=== PATIENT | female | born 1945 | race Caucasian/White ===

== ENCOUNTER → 2017-11-18 10:49 | Outpatient (CLI) | payer MEDICARE, SELFPAY ==
[2017-11-18 11:55] LABS: Hematocrit 37.3 % (37-47); Hemoglobin 11.9 g/dl (12.0-15.0); Mean Corp Hgb Conc 31.9 g/gl (32-36); Mean Corpuscular Hgb 29.5 pg (27.0-32.0); Mean Corpuscular Volume 92.6 fL (81-99); Mean Platelet Vol. 11.6 fl (6.2-12.0); Platelet Count 227 K/mm3 (150-450); RBC Distribution Width CV 13.3 % (11.6-14.6); RBC Distribution Width SD 43.9 fl (35.1-43.9); Red Blood Count 4.03 M/mm3 (4.2-5.4); White Blood Count 5.6 K/mm3 (4.4-11.0)
[2017-11-18 11:56] LABS: Scan Indicated on CBC? Y/N NO
[2017-11-18 12:15] LABS: BUN 56 mg/dL (7-18); BUN/Creat Ratio 25.7 RATIO (10-20); Calcium,Total 9.4 mg/dL (8.5-10.1); Chloride 102 mmol/L (98-107); Creatinine, Serum 2.18 mg/dL (0.55-1.02); EST Glomerular Filtration Rate 23 mL/min (>60); Est Glom Filt Rate - Afr Amer 28 mL/min (>60); Glucose 87 mg/dL (74-106); Phosphorus 4.1 mg/dL (2.5-4.9); Potassium 4.1 mmol/L (3.5-5.1); Sodium Level 139 mmol/L (136-145)
[2017-11-18 12:27] LABS: PTHIN 64.3 pg/mL (18.4-80.1)
[2017-11-18 13:06] LABS: Protein, Urine (Random) 7.7 mg/dL (<11.9); Protein:Creat Ratio 64 mg/g CRE (0-200)
== END ==
PROVIDERS: Family Provider Family Medicine; PCP Family Medicine
DX: I12.0 Hypertensive chronic kidney disease with stage 5 chronic kidney disease or end stage renal disease (principal); N18.5 Chronic kidney disease, stage 5; N25.81 Secondary hyperparathyroidism of renal origin
CPT/HCPCS: 36415; 80069; 82570; 83970; 84156; 85027

== ENCOUNTER → 2018-04-29 11:03 | Outpatient (CLI) | payer MEDICARE, SELFPAY ==
--- NOTE | 2018-04-29 11:05 | MRI_ITS ---
STUDY: MRI LUMBAR SPINE WITHOUT CONTRAST REASON FOR EXAM: Female, 72 years old. leg weakness, rt sided low back pain; hip, pelvis, groin pain TECHNIQUE: Standardized fat and water weighted pulse sequences were obtained in the sagittal and axial planes. COMPARISON: None FINDINGS: There is an exaggerated lumbar lordosis. There is a mild levoscoliosis of the lower lumbar spine. Normal conus medullaris that terminates at the T12-L1 level. There is grade 1 anterolisthesis at L5-S1, L4-5. There is retrolisthesis at L2-3, L1-2. There is multilevel disc desiccation. There is loss of disc height at L1-2, L4-5, L5-S1. Vertebral body heights are maintained. There is diffuse heterogeneous bone marrow signal consistent with senescent marrow. There are mild Modic type I changes at L5-S1 and L1-2. There is multilevel facet arthropathy and ligamentum flavum hypertrophy. This is severe at L4-5 and L5-S1. T12/L1: Sagittal images only were obtained. There is a small central bulge causing impression on the ventral thecal sac without neuroforaminal stenosis. L1/2: There is a diffuse bulge largest in the right paracentral region. There is mild central canal stenosis without neuroforaminal stenosis. L2/3: There is a diffuse bulge slightly asymmetric to the left. There is impression on the ventral thecal sac and mild left worse than right neuroforaminal stenosis. L3/4: There is a diffuse bulge. There is impression on the ventral thecal sac and rcbi-ob-mfwlxuvz bilateral neuroforaminal stenosis. L4/5: There is anterolisthesis. No bulge or herniation is seen. There is severe central canal stenosis at the level of the upper half of L5 and moderate central canal stenosis at the level of the L4-5 disc. There is severe right and mild left neuroforaminal stenosis. L5/S1: There is anterolisthesis. No disc bulge or herniation is seen. There is impression on the ventral thecal sac and moderate left worse than right neuroforaminal stenosis. Normal visualized sacral ala. There are multiple bilateral renal cysts suggesting polycystic kidney disease. MRI/Spine Lumbar (Routine) IMPRESSION: Multilevel degenerative changes, as described above. There is an exaggerated lumbar lordosis. L1/2: There is a diffuse bulge largest in the right paracentral region. There is mild central canal stenosis. L2/3: There is a diffuse bulge. There is mild left worse than right neuroforaminal stenosis. L3/4: There is a diffuse bulge. There is redj-wv-mcrwzumh bilateral neuroforaminal stenosis. L4/5: There is anterolisthesis. There is severe central canal stenosis at the level of the upper half of L5 and moderate central canal stenosis at the level of the L4-5 disc. There is severe right and mild left neuroforaminal stenosis. L5/S1: There is anterolisthesis. There is moderate left worse than right neuroforaminal stenosis. Electronically Signed: Rubina Skinner MD at 14:25 EDT , Service support ,
== END ==
PROVIDERS: Family Provider Family Medicine; PCP Family Medicine; Visit Provider Family Medicine
DX: M53.9 Dorsopathy, unspecified (principal)
CPT/HCPCS: 72148

== ENCOUNTER → 2018-05-26 10:49 | Outpatient (CLI) | payer MEDICARE, SELFPAY ==
[2018-05-26 11:21] LABS: Hematocrit 36.2 % (37-47); Hemoglobin 11.3 g/dl (12.0-15.0); Mean Corp Hgb Conc 31.2 g/gl (32-36); Mean Corpuscular Hgb 29.3 pg (27.0-32.0); Mean Corpuscular Volume 93.8 fL (81-99); Mean Platelet Vol. 11.2 fl (6.2-12.0); Platelet Count 225 K/mm3 (150-450); RBC Distribution Width CV 12.8 % (11.6-14.6); RBC Distribution Width SD 43.5 fl (35.1-43.9); Red Blood Count 3.86 M/mm3 (4.2-5.4); Scan Indicated on CBC? Y/N NO
[2018-05-26 11:30] LABS: Protein, Urine (Random) 10.1 mg/dL (<11.9); Protein:Creat Ratio 90 mg/g CRE (0-200)
[2018-05-26 11:49] LABS: Albumin, Serum 3.9 g/dL (3.2-5.0); BUN 53 mg/dL (7-18); BUN/Creat Ratio 23.5 RATIO (10-20); Calcium,Total 9.6 mg/dL (8.5-10.1); Chloride 104 mmol/L (98-107); Cholesterol 139 mg/dL (200); Creatinine, Serum 2.26 mg/dL (0.55-1.02); EST Glomerular Filtration Rate 22 mL/min (>60); Est Glom Filt Rate - Afr Amer 27 mL/min (>60); Glucose 89 mg/dL (74-106); High Density Lipoprotein 55 mg/dL; Phosphorus 4.1 mg/dL (2.5-4.9); Potassium 4.7 mmol/L (3.5-5.1); Sodium Level 143 mmol/L (136-145); Triglycerides 134 mg/dL; Very Low Density Lipoprotein 27 mg/dL (5-40)
[2018-05-26 11:52] LABS: PTHIN 63.1 pg/mL (18.4-80.1)
== END ==
PROVIDERS: Family Provider Family Medicine; PCP Family Medicine; Visit Provider Internal Medicine Nephrology
DX: I12.9 Hypertensive chronic kidney disease with stage 1 through stage 4 chronic kidney disease, or unspecified chronic kidney disease (principal); N18.4 Chronic kidney disease, stage 4 (severe); I63.9 Cerebral infarction, unspecified
CPT/HCPCS: 36415; 80061; 80069; 82570; 83970; 84156; 85027

== ENCOUNTER → 2018-06-29 10:25 | Outpatient (CLI) | payer MEDICARE, SELFPAY ==
--- NOTE | 2018-06-29 10:29 | US_ITS ---
STUDY: RENAL ULTRASOUND - COMPLETE REASON FOR EXAM: Female, 73 years old. Stage IV chronic kidney disease. Follow-up renal cysts. TECHNIQUE: Ultrasound evaluation of the kidneys was performed with real-time and static villaseñor-scale imaging. COMPARISON: July 27, 2015. FINDINGS: RIGHT KIDNEY: Normal location of the right kidney, which is normal in size. The right kidney measures 8.5 cm. There is cortical thinning and increased renal cortical echogenicity. The renal cortex measures 0.9 cm. Multiple right renal cysts. These measure between 0.5 and 1.5 cm in diameter. There are multiple echogenic foci with shadowing suggesting renal calculi. There is no right hydronephrosis. DISTAL RIGHT URETER: There is non-visualization of the distal right ureter. There is no demonstrated right ureterovesical junction calculus. There is a visualized right ureteral jet. LEFT KIDNEY: Normal location of the left kidney, which is normal in size. The left kidney measures 8.9 cm. There is increased renal cortical echogenicity and renal cortical thinning. The renal cortex measures 0.7 cm. There are multiple renal cysts each measuring approximately 1 cm in diameter. There are echogenic foci with shadowing within the left kidney suggesting nonobstructing calculi. There is no left hydronephrosis. DISTAL LEFT URETER: There is non-visualization of the distal left ureter. There is no demonstrated left ureterovesical junction calculus. There is a visualized left ureteral jet. BLADDER: The poorly distended urinary bladder has a volume of 26 ml. There is a normal wall thickness of the distended urinary bladder. There is no demonstrated mass within the urinary bladder. There are no demonstrated bladder calculi. US/Kidney and Bladder IMPRESSION: 1. Small bilateral kidneys with thinning and echogenic cortices consistent with medical renal disease. 2. Bilateral simple renal cysts essentially unchanged from prior study. 3. Bilateral nonobstructing renal calculi. Electronically Signed: Mike Mccarty DO at 19:25 EDT Tel [phone], Service support ,
== END ==
PROVIDERS: Family Provider Family Medicine; PCP Family Medicine; Visit Provider Internal Medicine Nephrology
DX: N18.4 Chronic kidney disease, stage 4 (severe) (principal)
CPT/HCPCS: 76770

== ENCOUNTER → 2018-11-03 16:24 | Outpatient (CLI) | payer MEDICARE, SELFPAY ==
[2018-10-13 10:41] VITALS: BMI 27.8
--- NOTE | 2018-11-03 16:27 | RAD_ITS ---
STUDY: X-RAY - RIGHT HIP REASON FOR EXAM: Female, 73 years old. Right hip pain and low back pain TECHNIQUE: 2 views of the hip. COMPARISON: None. FINDINGS: There is diffuse demineralization of the osseous structures. There are degenerative changes of the visualized lumbar spine. Mild degenerative changes of the sacroiliac joints. Normal femoral head, neck, intertrochanteric region and visualized proximal femur. Normal acetabulum. Normal hip joint. Normal visualized superior and inferior pubic rami and ischial tuberosities. RAD/HIP, UNI W/ Pelvis 2-3 Views IMPRESSION: Normal x-ray examination of the hip. Other nonacute findings as outlined above. Electronically Signed: Lorena Chiang MD at 6:46 EST , Service support ,
== END ==
PROVIDERS: Family Provider Family Medicine; PCP Family Medicine; Referring Provider Anesthesiology Pain Medicine; Visit Provider Anesthesiology Pain Medicine
DX: M25.551 Pain in right hip (principal)
CPT/HCPCS: 73502

== ENCOUNTER → 2018-12-15 11:24 | Outpatient (CLI) | payer MEDICARE, SELFPAY ==
[2018-10-13 10:41] VITALS: BMI 27.8
[2018-12-15 12:22] LABS: Protein, Urine (Random) 15.6 mg/dL (<11.9); Protein:Creat Ratio 93 mg/g CRE (0-200)
[2018-12-15 12:24] LABS: Hematocrit 38.1 % (37-47); Mean Corp Hgb Conc 31.5 g/gl (32-36); Mean Corpuscular Hgb 29.9 pg (27.0-32.0); Mean Platelet Vol. 10.8 fl (6.2-12.0); Platelet Count 206 K/mm3 (150-450); RBC Distribution Width CV 12.9 % (11.6-14.6); RBC Distribution Width SD 44.7 fl (35.1-43.9); Red Blood Count 4.01 M/mm3 (4.2-5.4); Scan Indicated on CBC? Y/N NO; White Blood Count 6.7 K/mm3 (4.4-11.0)
[2018-12-15 12:42] LABS: BUN 42 mg/dL (7-18); BUN/Creat Ratio 20.3 RATIO (10-20); Calcium,Total 8.9 mg/dL (8.5-10.1); Chloride 103 mmol/L (98-107); Creatinine, Serum 2.07 mg/dL (0.55-1.02); EST Glomerular Filtration Rate 25 mL/min (>60); Est Glom Filt Rate - Afr Amer 30 mL/min (>60); Glucose 87 mg/dL (74-106); Phosphorus 3.6 mg/dL (2.5-4.9); Sodium Level 137 mmol/L (136-145)
[2018-12-15 12:51] LABS: PTHIN 66.2 pg/mL (18.4-80.1)
== END ==
PROVIDERS: Family Provider Family Medicine; PCP Family Medicine; Referring Provider Internal Medicine Nephrology; Visit Provider Internal Medicine Nephrology
DX: N18.4 Chronic kidney disease, stage 4 (severe) (principal)
CPT/HCPCS: 36415; 80069; 82570; 83970; 84156; 85027

== ENCOUNTER → 2019-04-12 | Outpatient (CLI) | payer MEDICARE, SELFPAY ==
[2019-04-12 13:45] VITALS: BMI 27.8
--- NOTE | 2019-04-12 13:50 | RAD_ITS ---
STUDY: X-RAY - LUMBAR SPINE REASON FOR EXAM: Female, 73 years old. Back pain TECHNIQUE: 4 view(s) of the lumbar spine were obtained. COMPARISON: 02/27/2018 MRI lumbar spine. The plain film x-ray studies are unavailable at this time. FINDINGS: There is an exaggerated lumbar lordosis. There is trace dextroscoliosis. There is a grade 1 near grade 2 anterolisthesis at the level of L4-L5. This is similar to the prior study, MRI. There is slight retrolisthesis at L2-L3 which shows no significant change on the flexion-extension views. There is disc space narrowing at each level. There is minimal spondylosis. There is facet arthropathy. With flexion and extension views provided there is no change in the anterolisthesis at the level of L4-L5. It remains at approximately 1 cm. The soft tissue structures are unremarkable. RAD/L/S Spine Min 4 Views IMPRESSION: Grade 1 spondylolisthesis without evidence of movement on flexion-extension views. Relatively stable lumbar spine from neutral to flexion and extension. Electronically Signed: Anna Chandler MD at 15:41 EDT Tel , Service support ,
== END | disposition home or self-care (01) ==
LOC: HPRAD 13:50
PROVIDERS: Family Provider Family Medicine; PCP Family Medicine; Referring Provider Orthopaedic Surgery; Visit Provider Orthopaedic Surgery
DX: M53.9 Dorsopathy, unspecified (principal)
CPT/HCPCS: 72110

== ENCOUNTER → 2019-04-13 | Outpatient (CLI) | payer MEDICARE, SELFPAY ==
--- NOTE | 2019-04-13 | LES_PTH ---
PATIENT: TANJA ATKINSON LOC: [facility] U#:[id number] AGE/SX: 73/F ROOM: RE04/13/[address]: Dr. Luís Rodriguez DO : 1945 BED: DIS: 04/13/2019 SPEC #: [id number] RECD: 04/13/19 12:39 STATUS: NOEMY RETono #: [id number] KULDIP: 04/13/19 00:[address]: Luís Rodriguez DEPT: SURGICAL PATHOLOGY RECD BY: Lucho Hernandez Tissues: Skin of external ear, NOS Procedures: Surgery Specimen Level IV HEADER OPERATION: Removal lesion right ear PRE-OP DIAGNOSIS: Right ear lesion TISSUE SUBMITTED: Right ear lesion MICROSCOPIC DIAGNOSIS Right ear lesion, biopsy: Acanthosis, hyperkeratosis with extensive ulceration and associated acute inflammation. Negative for malignancy. SJ:demetra 04/14/19 COMMENT Case has been reviewed in consultation with Dr. Knowles who concurs with the above diagnosis. IDC:AM MICROSCOPIC DESCRIPTION Slides are reviewed. GROSS DESCRIPTION Received is one container labeled with the patient's name and not further designated. The specimen consists of a piece of bruner-white skin ellipse measuring 1 x 0.4 x 0.1 cm. There is one bruner lesion on the surface measuring 0.2 x 0.2 cm. The specimen is inked and submitted entirely in one cassette. It will be serially sectioned at the time of embedding. / SJ:demetra 04/13/19 TC:1 CPT: 30067
[2019-04-13 10:41] VITALS: BMI 27.8
== END | disposition home or self-care (01) ==
LOC: BIMLAB 11:42
PROVIDERS: Family Provider Family Medicine; PCP Family Medicine; Visit Provider Family Medicine
DX: L98.9 Disorder of the skin and subcutaneous tissue, unspecified (principal)
CPT/HCPCS: 88305

== ENCOUNTER → 2019-06-10 | Outpatient (CLI) | payer MEDICARE, SELFPAY ==
[2019-04-26 10:15] VITALS: BMI 27.8
--- NOTE | 2019-06-10 13:15 | RAD_ITS ---
STUDY: X-RAY - LUMBAR SPINE REASON FOR EXAM: Female, 74 years old. Postop lower back surgery. TECHNIQUE: 2 view(s) of the lumbar spine were obtained. COMPARISON: 04/12/2019 lumbar spine radiographs. FINDINGS: Interval posterior fusion and laminectomy L4, L5, and S1 with bilateral pedicle screws joined by spinal rods. Hardware intact. No osseous fracture or complication is evident. Alignment similar to prior with mild right scoliosis centered at L2 and 9 mm anterolisthesis of L4 on L5. RAD/Lumbar Spine 2 or 3 Views IMPRESSION: Interval posterior fusion and laminectomy L4, L5, and S1 no evidence of complication. Electronically Signed: Gaudencio Bhatti, at 0:16 EDT Tel , Service support ,
== END | disposition home or self-care (01) ==
LOC: HPRAD 13:14
PROVIDERS: Family Provider Family Medicine; PCP Family Medicine; Referring Provider Physician Assistant; Visit Provider Physician Assistant
DX: M48.062 Spinal stenosis, lumbar region with neurogenic claudication (principal)
CPT/HCPCS: 72100

== ENCOUNTER → 2019-06-28 | Outpatient (CLI) | payer MEDICARE, SELFPAY ==
[2019-06-28 09:12] VITALS: BMI 27.8
--- NOTE | 2019-06-28 09:22 | RAD_ITS ---
STUDY: X-RAY - LUMBAR SPINE REASON FOR EXAM: Female, 74 years old. Low back pain postop TECHNIQUE: 2 view(s) of the lumbar spine were obtained. COMPARISON: Prior study of 06/10/2019 FINDINGS: Normal lumbar lordosis. There is no substantial scoliosis. There is a grade 1 anterolisthesis of L4 relative to L3 and L5. There are posterior spinal fusion changes from L4 to S1 with rods and interpeduncular screws. There are status post laminectomy changes of L4 and L5. There is narrowing of the L1-2 disc space with sclerosis of the adjacent endplates. The soft tissue structures are unremarkable. RAD/Lumbar Spine 2 or 3 Views IMPRESSION: Posterior spinal fusion changes with rods and interpeduncular screws from L4 to S1. There is a grade 1 anterolisthesis of L4 relative to L3 and L5. Status post laminectomy of L4 and L5. Narrowing of the L1-2 disc space with sclerosis of the adjacent endplates. Electronically Signed: Gaudencio Peters MD at 17:02 EDT , Service support ,
== END | disposition home or self-care (01) ==
LOC: HPRAD 09:21
PROVIDERS: Family Provider Family Medicine; PCP Family Medicine; Referring Provider Orthopaedic Surgery; Visit Provider Orthopaedic Surgery
DX: M54.5 Low back pain (principal)
CPT/HCPCS: 72100

== ENCOUNTER → 2019-07-13 | Outpatient (CLI) | payer MEDICARE, SELFPAY ==
[2019-06-28 09:12] VITALS: BMI 27.8
[2019-07-13 11:21] LABS: Hematocrit 36.8 % (37-47); Hemoglobin 11.2 g/dL (12.0-15.0); Mean Corp Hgb Conc 30.4 g/dL (32-36); Mean Corpuscular Hgb 28.9 pg (27.0-32.0); Mean Corpuscular Volume 94.8 fL (81-99); Platelet Count 279 K/mm3 (150-450); RBC Distribution Width CV 12.8 % (11.6-14.6); RBC Distribution Width SD 44.5 fl (35.1-43.9); Red Blood Count 3.88 M/mm3 (4.2-5.4); White Blood Count 7.3 K/mm3 (4.4-11.0)
[2019-07-13 11:45] LABS: Albumin, Serum 4.1 g/dL (3.2-5.0); BUN 46 mg/dL (7-18); Calcium,Total 9.6 mg/dL (8.5-10.1); Chloride 103 mmol/L (98-107); Creatinine, Serum 2.09 mg/dL (0.55-1.02); EST Glomerular Filtration Rate 25 mL/min (>60); Est Glom Filt Rate - Afr Amer 30 mL/min (>60); Glucose 82 mg/dL (74-106); Phosphorus 4.4 mg/dL (2.5-4.9); Sodium Level 140 mmol/L (136-145)
== END | disposition home or self-care (01) ==
PROVIDERS: Family Provider Family Medicine; PCP Family Medicine
DX: I12.9 Hypertensive chronic kidney disease with stage 1 through stage 4 chronic kidney disease, or unspecified chronic kidney disease (principal); N18.4 Chronic kidney disease, stage 4 (severe); N25.81 Secondary hyperparathyroidism of renal origin
CPT/HCPCS: 36415; 80069; 85027

== ENCOUNTER → 2019-08-08 | Outpatient (CLI) | payer MEDICARE, SELFPAY ==
[2019-06-28 09:12] VITALS: BMI 27.8
--- NOTE | 2019-08-08 13:12 | BI_ITS ---
MAMMOGRAPHY - BILATERAL SCREENING REASON FOR EXAM: Female, 74 years old. Routine annual screening examination. PERTINENT HISTORY: Aunt with breast cancer. Remote left excisional breast biopsy. TECHNIQUE: Digital bilateral breast misa (3D mammographic acquisition) in the CC and MLO projections. 2-D mediolateral oblique (MLO) and craniocaudad (CC) views of both breasts were obtained. CAD: Full Field Digital Mammography with Computer Added Detection was performed. COMPARISON: Comparison is made with prior outside examination dated May 27, 2018. FINDINGS: Breast Composition: There are scattered areas of fibroglandular density. There are no dominant masses or suspicious calcifications. Stable secretory calcifications in both breasts. No other significant abnormalities are identified. There has been no significant change since the prior study. BI/SCREEN MAMM (CAD) W/MISA BILAT IMPRESSION: Stable bilateral screening mammogram. Yearly follow-up mammogram recommended. (A) ASSESSMENT CATEGORY: BIRADS Category 2: Benign. A letter regarding these results will be sent to the patient by the facility within 30 days. Approximately 10% of breast cancers are not detected by mammography. A normal mammogram should not delay biopsy of a clinically suspicious abnormality. [id number] Electronically Signed: Ariel Sousa, at 15:36 EST , Service support ,
== END | disposition home or self-care (01) ==
LOC: OPBI 13:11
PROVIDERS: Family Provider Family Medicine; PCP Family Medicine; Referring Provider Family Medicine; Visit Provider Family Medicine
DX: Z12.31 Encounter for screening mammogram for malignant neoplasm of breast (principal)
CPT/HCPCS: 77063; 77067

== ENCOUNTER → 2019-08-16 | Outpatient (CLI) | payer MEDICARE, SELFPAY ==
[2019-06-28 09:12] VITALS: BMI 27.8
--- NOTE | 2019-08-16 11:14 | RAD_ITS ---
STUDY: X-RAY - LUMBAR SPINE REASON FOR EXAM: Female, 74 years old. Low back pain TECHNIQUE: 2 view(s) of the lumbar spine were obtained. COMPARISON: 06/28/2019 FINDINGS: Normal lumbar lordosis. Mild dextroscoliosis. Status post transpedicular fixation from L4 through S1 with 5 mm of anterolisthesis of L4 and L5 with 5 mm of anterolisthesis of L5 on S1 which are unchanged. Normal vertebral bodies and endplates. There is multi-level degenerative disc disease with multi-level disc space narrowing. The soft tissue structures are unremarkable. RAD/Lumbar Spine 2 or 3 Views IMPRESSION: Postsurgical changes, dextroscoliosis, degenerative disc disease as described above. Overall, no change from 06/28/2019. Electronically Signed: Jorje Arellano MD at 9:09 EST Tel , Service support ,
== END | disposition home or self-care (01) ==
LOC: HPRAD 11:14
PROVIDERS: Family Provider Family Medicine; PCP Family Medicine; Referring Provider Orthopaedic Surgery; Visit Provider Orthopaedic Surgery
DX: Z98.1 Arthrodesis status (principal)
CPT/HCPCS: 72100

== ENCOUNTER 2019-09-09 10:00 | Outpatient (RCR) | payer MEDICARE, SELFPAY ==
[2019-08-16 11:56] VITALS: BMI 27.8
--- NOTE | 2019-08-18 12:32 | HP.PTEVAL ---
Patient's Visit Information TANJA ATKINSON is a 74 year old F referred to Physical Therapy by Stephanie Martinez MD with a diagnosis of S/P L4-S1 FUSION. Date of Evaluation: 08/18/19 Physical Therapist: Vinod Olivera, PT, Cert MDT, [facility] - Visit Plan Frequency: 2x /Week Duration: 4 Weeks Plan: s/p LUMBAR FUSION 05/27/19. PT INTERVENTIONS POSTURAL EX'S ,DLS ,LE STRENGTHENING - Subjective Findings: This 74 y/o female presents to physical therapy with s/p lumbar fusion L4-S1 on 05/27/[address] MARTINEZ at [facility]. Patient d/c to home after 3 days. Patient stated did well min pain. Patient seen DR and recommended PT. Patient had lumbar pain with radicular symptoms. Patient had MRI. Patient denies parathesi/tingling-. Coughing/sneezing -. Bowel/bladder -. Patient sleeping good. Patient has limitations with housework and some ADL'S. Patient surgery impaired QOL. SOCIAL: . VOCATION: retired - Objective POSTURE: rounded shoulders head foward. GAIT: reciprocal pattern mild foward posture. NEURO: intact. PALPATION: unremarkable. LUMBAR ROM: flexiion WFL,EXTENSION min/mod loss,side glides mod loss. MMT: QUADS/HAMS 4/5,HIP FLEXION 4/5,4/5 ANKLE - Special Tests L/S Slump test left side: Negative L/S Slump test right side: Negative L/S Left Straight Leg Raise: Negative L/S Right Straight Leg Raise: Negative - Goals Goal 1:: Independant with HEP. Goal Time Frame: 4-6 Weeks Goal 2:: Patient improve posture/body mechanics for ADL'S Goal Time Frame: 4-6 Weeks Goal 3:: Patient to improve lumbar owestry score by 5 points or > to improve function. Goal Time Frame: 4-6 Weeks Goal 4:: Patient to improve ADL'S with min limiation Goal Time Frame: 2-4 Weeks - Rehabilitation Potential Physical Therapy Diagnosis: This patient underwent s/p lumbar fusion 05/27/19 with decrease ADL' ,functional strength and endurance thus benifit from skilled. Rehabilitation Potential: Good - Anticipated Interventions Patient/Client Instruction: Educate patient on: Condition, Plan of Care For the Purpose of:: To decrease pain, To increase ROM, To improve muscle performance and motor function, To improve ability to perform ADL's, To increase tolerance to activity/condition/position, To improve ability of physical actions for home/community/work/leisure, To improve health of tissue, To decrease soft tissue restriction, To increase flexibility/ROM, To improve ability to perform tasks related to life management Therapeutic Exercise to Include: Strength training, Postural training, Flexibilty training, Dynamic Lumbar Stabilization Comment: BLE For the Purpose of:: To decrease pain, To increase ROM, To improve muscle performance and motor function, To improve ability to perform ADL's, To improve performance and independence with ADL's, To improve ability of physical actions for home/community/work/leisure, To improve ability to perform tasks related to life management Thank you for the opportunity to evaluate your patient. For Medicare and Medicare HMO plans, please review the plan of care and approve it. It will need to be FAXED BACK to us at [phone] for Medicare purposes. For Medicare only, by signing this I certify the plan of care. Please let me know if there are questions or concerns regarding this plan of care. Physician Signature: Date:
--- NOTE | 2019-09-09 10:26 | HP.PTDCSUM ---
HP - PT D/C Summary It has been my pleasure to treat TANJA ATKINSON under orders from Stephanie Martinez MD, for the diagnosis of S/P L4-S1 FUSION for a total of 4 visit(s). Discharge Date: 09/09/19 Please see the following information for a summary of their discharge status. - Subjective Subjective: Doing well .. Return to prior level of function and ADLS' - Pain LB Pain Intensity (Out of 10): 0 - Overall Improvement % Improvement: 90 - Objective Objective/Function: POSTURE: mild foward head. PALPATION: unremarkbale. GAIT: reciprocal pattern. NEURO: intact. MMT: quads/hams/hip 4/5 ankle 4/5. LUMBAR ROM: FLEXION WFL,EXTENSION MOD LOSS - Goals Goal 1:: Independant with HEP. Goal Progress: Goal Met Goal 2:: Patient improve posture/body mechanics for ADL'S Goal Progress: Goal Met Goal 3:: Patient to improve lumbar owestry score by 5 points or > to improve function. Goal Progress: Goal Met Goal 4:: Patient to improve ADL'S with min limiation Goal Progress: Goal Met - Plan Plan: D/C TO [facility]P - D/C Information Discharge Comments: [facility] If there are questions or concerns regarding this patient's physical therapy, please feel free to call me at [phone]. Thank you for the referral of this patient. Sincerely, Vinod Olivera, PT, Cert MDT, [facility]
== END 2019-09-09 19:00 | disposition home or self-care (01) ==
LOC: PT 10:00
PROVIDERS: Family Provider Family Medicine; PCP Family Medicine; Referring Provider Orthopaedic Surgery; Visit Provider Orthopaedic Surgery
DX: Z98.890 Other specified postprocedural states (principal)
CPT/HCPCS: 97110; 97162; 97530

== ENCOUNTER → 2019-11-15 09:50 | Outpatient (CLI) | payer MEDICARE, SELFPAY ==
[2019-08-16 11:56] VITALS: BMI 27.8
--- NOTE | 2019-11-15 09:51 | RAD_ITS ---
STUDY: X-RAY - LUMBAR SPINE REASON FOR EXAM: Female, 74 years old. post op TECHNIQUE: 2 view(s) of the lumbar spine were obtained. COMPARISON: 08/16/2019 FINDINGS: Normal lumbar lordosis. There is no substantial scoliosis. There is a normal alignment of the vertebrae. There is multilevel endplate spondylosis of the lumbar vertebrae. There is multi-level degenerative disc disease with multi-level disc space narrowing. There is no demonstrated fracture. Stable post surgical fusion hardware noted at L4-S1. Stable anterolisthesis of L4 on L5. The soft tissue structures are unremarkable. RAD/Lumbar Spine 2 or 3 Views IMPRESSION: Degenerative changes of the spine, as detailed above. Stable postsurgical changes with anterolisthesis Electronically Signed: Andreas Dennis DO at 17:00 EST Tel , Service support ,
== END ==
PROVIDERS: PCP Family Medicine; Referring Provider Orthopaedic Surgery; Visit Provider Orthopaedic Surgery
DX: M54.5 Low back pain (principal)
CPT/HCPCS: 72100

== ENCOUNTER → 2019-11-30 09:48 | Outpatient (CLI) | payer MEDICARE, SELFPAY ==
[2019-11-15 12:30] VITALS: BMI 27.8
--- NOTE | 2019-11-30 09:51 | US_ITS ---
STUDY: RENAL ULTRASOUND - COMPLETE REASON FOR EXAM: Female, 74 years old. CKD TECHNIQUE: Ultrasound evaluation of the kidneys was performed with real-time and static villaseñor-scale imaging. COMPARISON: Prior study of 06/29/2018 FINDINGS: RIGHT KIDNEY: mild renal atrophy. The right kidney measures 8.7 x 3.7 x 3.8 cm. There is poor cortical sinusoidal echogenic differentiation suggestive of medical renal disease.. The renal cortex measures 1.0 cm. There is a septated right renal cyst measuring 1.2 x 1.0 x 1.5 cm. There are no right renal calculi. There is no right hydronephrosis. DISTAL RIGHT URETER: There is non-visualization of the distal right ureter. There is no demonstrated right ureterovesical junction calculus. There is no demonstrated right ureteral jet. LEFT KIDNEY: The left kidney also demonstrates mild atrophy. The left kidney measures 8.7 x 4.3 x 4.5 cm. There is poor corticomedullary echogenic differentiation suggestive of medical renal disease. The renal cortex measures 1.2 cm. There is no left renal mass or cyst. There are no left renal calculi. There is no left hydronephrosis. DISTAL LEFT URETER: There is non-visualization of the distal left ureter. There is no demonstrated left ureterovesical junction calculus. There is no demonstrated left ureteral jet. BLADDER: Urinary bladder was not visualized. US/Kidney and Bladder IMPRESSION: Bilateral renal atrophy. Poor corticosinusoidal echogenic differentiation of the kidneys suggestive of medical renal disease. Small septated cyst of the right kidney. Left bilateral renal vascular calcifications are noted. Electronically Signed: Gaudencio Peters MD at 19:08 EST , Service support ,
== END ==
PROVIDERS: PCP Family Medicine; Referring Provider Internal Medicine Nephrology; Visit Provider Internal Medicine Nephrology
DX: N18.4 Chronic kidney disease, stage 4 (severe) (principal)
CPT/HCPCS: 76770

== ENCOUNTER → 2020-03-07 10:18 | Outpatient (CLI) | payer MEDICARE, SELFPAY ==
[2019-11-15 12:30] VITALS: BMI 27.8
[2020-03-07 10:52] LABS: Hematocrit 34.4 % (37-47); Hemoglobin 10.9 g/dL (12.0-15.0); Mean Corp Hgb Conc 31.7 g/dL (32-36); Mean Corpuscular Hgb 30.5 pg (27.0-32.0); Mean Corpuscular Volume 96.4 fL (81-99); Mean Platelet Vol. 11.3 fl (6.2-12.0); Platelet Count 240 K/mm3 (150-450); RBC Distribution Width CV 12.4 % (11.6-14.6); RBC Distribution Width SD 44.1 fl (35.1-43.9); Red Blood Count 3.57 M/mm3 (4.2-5.4); White Blood Count 6.3 K/mm3 (4.4-11.0)
[2020-03-07 10:57] LABS: Color, Urine Yellow (Yellow); Glucose, Dipstick Normal (Normal); Ketone-Dipstick Negative (Negative); Leukocyte Esterase-Dipstick 100 /ul (Negative); Nitrite-Dipstick Negative (Negative); Occult Blood-Urine Negative /ul (Negative); Protein-Dipstick Negative (Negative); Specific Gravity, Urine 1.015 (1.002-1.030); Urine Bilirubin Dipstick Negative (Negative); Urine Clarity Sl. Cloudy (Clear); Urine Urobilinogen Normal (Normal)
[2020-03-07 11:16] LABS: PTHIN 128.9 pg/mL (18.4-80.1)
[2020-03-07 11:18] LABS: Albumin, Serum 4.1 g/dL (3.2-5.0); BUN 72 mg/dL (7-18); BUN/Creat Ratio 28.8 RATIO (10-20); Calcium,Total 9.2 mg/dL (8.5-10.1); Chloride 104 mmol/L (98-107); EST Glomerular Filtration Rate 20 mL/min (>60); Est Glom Filt Rate - Afr Amer 24 mL/min (>60); Glucose 100 mg/dL (74-106); Phosphorus 3.9 mg/dL (2.5-4.9); Potassium 4.1 mmol/L (3.5-5.1); Sodium Level 137 mmol/L (136-145)
== END ==
PROVIDERS: PCP Family Medicine; Referring Provider Internal Medicine Nephrology; Visit Provider Internal Medicine Nephrology
DX: N18.4 Chronic kidney disease, stage 4 (severe) (principal)
CPT/HCPCS: 36415; 80069; 81002; 83970; 85027

== ENCOUNTER → 2020-03-20 10:47 | Outpatient (CLI) | payer MEDICARE, SELFPAY ==
[2019-11-15 12:30] VITALS: BMI 27.8
[2020-03-20 11:47] LABS: Albumin, Serum 4.2 g/dL (3.2-5.0); BUN 58 mg/dL (7-18); BUN/Creat Ratio 22.1 RATIO (10-20); Calcium,Total 9.6 mg/dL (8.5-10.1); Chloride 102 mmol/L (98-107); Creatinine, Serum 2.62 mg/dL (0.55-1.02); EST Glomerular Filtration Rate 19 mL/min (>60); Est Glom Filt Rate - Afr Amer 23 mL/min (>60); Glucose 99 mg/dL (74-106); Phosphorus 3.5 mg/dL (2.5-4.9); Sodium Level 137 mmol/L (136-145)
== END ==
PROVIDERS: PCP Family Medicine; Referring Provider Internal Medicine Nephrology; Visit Provider Internal Medicine Nephrology
DX: N18.4 Chronic kidney disease, stage 4 (severe) (principal)
CPT/HCPCS: 36415; 80069

== ENCOUNTER → 2020-05-29 10:51 | Outpatient (CLI) | payer MEDICARE, SELFPAY ==
[2020-05-23 13:09] VITALS: BMI 27.8
--- NOTE | 2020-05-29 10:52 | RAD_ITS ---
STUDY: X-RAY - LUMBAR SPINE REASON FOR EXAM: Female, 75 years old. POST OP TECHNIQUE: 2 view(s) of the lumbar spine were obtained. COMPARISON: November 15, 2019 FINDINGS: There is an exaggerated lumbar lordosis. There is grade 1 anterior listhesis at L4-5. There is grade 1 retrolisthesis at L1-2, L2-3, and L3-4 There is mild S-shaped scoliosis. There is generalized demineralization of the vertebral bodies. There is some posterior fusion from L4 to S1 with bilateral pedicle screws and laminectomy . There is disc space narrowing at L1-2 and L3-4. There is no demonstrated fracture. The soft tissue structures are unremarkable. RAD/Lumbar Spine 2 or 3 Views IMPRESSION: Degenerative and postoperative changes. Electronically Signed: Liu Pollard MD at 23:51 EDT , Service support ,
== END ==
PROVIDERS: PCP Family Medicine; Referring Provider Orthopaedic Surgery; Visit Provider Orthopaedic Surgery
DX: M54.5 Low back pain (principal)
CPT/HCPCS: 72100

== ENCOUNTER → 2020-06-20 10:23 | Outpatient (CLI) | payer MEDICARE, SELFPAY ==
[2020-05-23 13:09] VITALS: BMI 27.8
[2020-06-20 11:35] LABS: Hematocrit 37.2 % (37-47); Hemoglobin 11.4 g/dL (12.0-15.0); Mean Corp Hgb Conc 30.6 g/dL (32-36); Mean Corpuscular Hgb 30.1 pg (27.0-32.0); Mean Corpuscular Volume 98.2 fL (81-99); Mean Platelet Vol. 10.8 fl (6.2-12.0); Platelet Count 274 K/mm3 (150-450); RBC Distribution Width CV 11.5 % (11.6-14.6); RBC Distribution Width SD 41.3 fl (35.1-43.9); Red Blood Count 3.79 M/mm3 (4.2-5.4); White Blood Count 6.3 K/mm3 (4.4-11.0)
[2020-06-20 11:47] LABS: PTHIN 117.2 pg/mL (18.4-80.1)
[2020-06-20 11:56] LABS: BUN 50 mg/dL (7-18); BUN/Creat Ratio 23.1 RATIO (10-20); Calcium,Total 9.5 mg/dL (8.5-10.1); Chloride 103 mmol/L (98-107); Cholesterol 155 mg/dL (200); Creatinine, Serum 2.16 mg/dL (0.55-1.02); EST Glomerular Filtration Rate 24 mL/min (>60); Est Glom Filt Rate - Afr Amer 28 mL/min (>60); Ferritin 50 ng/mL (8-252); Glucose 88 mg/dL (74-106); High Density Lipoprotein 45 mg/dL; Iron 53 ug/dL (50-170); Iron Binding Capacity,Total 343 ug/dL (250-450); PERCENT IRON SATURATION 15.5 % (15.0-55.0); Phosphorus 3.5 mg/dL (2.5-4.9); Potassium 3.8 mmol/L (3.5-5.1); Sodium Level 138 mmol/L (136-145); Triglycerides 226 mg/dL; Very Low Density Lipoprotein 45 mg/dL (5-40)
== END ==
PROVIDERS: PCP Family Medicine; Referring Provider Internal Medicine Nephrology; Visit Provider Internal Medicine Nephrology
DX: N18.4 Chronic kidney disease, stage 4 (severe) (principal)
CPT/HCPCS: 36415; 80061; 80069; 82728; 83540; 83550; 83970; 85027

== ENCOUNTER → 2020-07-04 09:27 | Outpatient (CLI) | payer MEDICARE, SELFPAY ==
[2020-05-23 13:09] VITALS: BMI 27.8
--- NOTE | 2020-07-04 09:29 | US_ITS ---
STUDY: RENAL ULTRASOUND - COMPLETE REASON FOR EXAM: Female, 75 years old. RENAL CYST -- CKD 4 TECHNIQUE: Ultrasound evaluation of the kidneys was performed with real-time and static villaseñor-scale imaging. COMPARISON: Comparison is made with prior examination dated 11/30/2019. FINDINGS: RIGHT KIDNEY: with mild renal atrophy. The right kidney measures 8.7 cm x 4.2 cm x 4.1 cm. There is a normal cortex of the right kidney. The renal cortex measures 1.5 cm. Increased echotexture of the renal cortex suggestive of medical renal disease. 2 right renal cysts are seen. The larger measures 1.7 cm x 1 cm x 1.2 cm. There are no right renal calculi. Intrarenal vascular calcification. There is no right hydronephrosis. DISTAL RIGHT URETER: There is non-visualization of the distal right ureter. There is no demonstrated right ureterovesical junction calculus. There is a visualized right ureteral jet. LEFT KIDNEY: with mild renal atrophy. The left kidney measures 8.6 cm x 3.6 cm x 3.7 cm. There is a normal cortex of the left kidney. Increased echotexture of the renal cortex suggestive of medical renal disease. The renal cortex measures 1 cm. There is no left renal mass or cyst. There are no left renal calculi. There is no left hydronephrosis. Intrarenal vascular calcification. DISTAL LEFT URETER: There is non-visualization of the distal left ureter. There is no demonstrated left ureterovesical junction calculus. There is a visualized left ureteral jet. BLADDER: The distended urinary bladder has a volume of 33 ml. There is a normal wall thickness of the distended urinary bladder. There is no demonstrated mass within the urinary bladder. There are no demonstrated bladder calculi. US/Kidney and Bladder IMPRESSION: Mild degree of bilateral renal atrophy with increased echotexture of the renal cortex suggestive of medical renal disease. 2. Small left renal cysts. Electronically Signed: Ariel Sousa, at 14:38 EDT , Service support ,
== END ==
PROVIDERS: PCP Family Medicine; Referring Provider Internal Medicine Nephrology; Visit Provider Internal Medicine Nephrology
DX: N28.1 Cyst of kidney, acquired (principal)
CPT/HCPCS: 76770

== ENCOUNTER → 2020-10-17 14:43 | Outpatient (CLI) | payer MEDICARE, SELFPAY ==
[2020-10-17 13:56] VITALS: BMI 28.0
--- NOTE | 2020-10-17 14:45 | RAD_ITS ---
STUDY: X-RAY - RIGHT ANKLE REASON FOR EXAM: Female, 75 years old. Twisted ankle 1 week ago, pain with walking, swelling and bruising TECHNIQUE: 3 view(s) of the ankle. COMPARISON: None. FINDINGS: Normal visualized distal tibia and fibula. Nondisplaced oblique fracture of the lateral malleolus. Normal tibiotalar articulation and ankle mortise. Normal visualized talus and calcaneus. The visualized subtalar, talonavicular, calcaneocuboid and tarsal articulations are normal. Lateral soft tissue swelling. RAD/Ankle min 3 Views IMPRESSION: Nondisplaced fracture of the lateral malleolus. Lateral soft tissue swelling. Electronically Signed: Ariel Sousa, at 16:04 EST , Service support ,
== END ==
PROVIDERS: PCP Family Medicine; Referring Provider Family Medicine; Visit Provider Family Medicine
DX: S99.911A Unspecified injury of right ankle, initial encounter (principal)
CPT/HCPCS: 73610

== ENCOUNTER → 2021-01-08 10:01 | Outpatient (CLI) | payer MEDICARE, SELFPAY ==
[2021-01-08 11:08] LABS: Hematocrit 36.7 % (37-47); Hemoglobin 11.4 g/dL (12.0-15.0); Mean Corp Hgb Conc 31.1 g/dL (32-36); Mean Corpuscular Hgb 29.7 pg (27.0-32.0); Mean Corpuscular Volume 95.6 fL (81-99); Mean Platelet Vol. 10.9 fl (6.2-12.0); Platelet Count 229 K/mm3 (150-450); RBC Distribution Width CV 12.4 % (11.6-14.6); RBC Distribution Width SD 43.2 fl (35.1-43.9); Red Blood Count 3.84 M/mm3 (4.2-5.4)
[2021-01-08 11:19] LABS: Protein, Urine (Random) 11.2 mg/dL (<11.9); Protein:Creat Ratio 88 mg/g CRE (0-200)
[2021-01-08 11:47] LABS: Albumin, Serum 3.9 g/dL (3.2-5.0); BUN 44 mg/dL (7-18); BUN/Creat Ratio 22.3 RATIO (10-20); Chloride 101 mmol/L (98-107); Creatinine, Serum 1.97 mg/dL (0.55-1.02); EST Glomerular Filtration Rate 26 mL/min (>60); Est Glom Filt Rate - Afr Amer 32 mL/min (>60); Glucose 88 mg/dL (74-106); Potassium 3.8 mmol/L (3.5-5.1); Sodium Level 136 mmol/L (136-145); Thyroid Stim Hormone (TSH) 2.97 uIU/mL (0.358-3.74)
== END ==
PROVIDERS: PCP Family Medicine; Visit Provider Internal Medicine Nephrology
DX: I12.9 Hypertensive chronic kidney disease with stage 1 through stage 4 chronic kidney disease, or unspecified chronic kidney disease (principal); N18.32 Chronic kidney disease, stage 3b
CPT/HCPCS: 36415; 80069; 82570; 83970; 84156; 84443; 85027

== ENCOUNTER → 2021-03-29 17:32 | Outpatient (CLI) | payer MEDICARE, SELFPAY ==
[2021-03-22 13:06] VITALS: BMI 28.9
--- NOTE | 2021-03-29 | CYSPIN_PTH ---
PATIENT: TANJA ATKINSON LOC: [facility] U#:[id number] AGE/SX: 80/F ROOM: RE03/29/[address]: Dr. Nathalie Flores MD : 1945 BED: DIS: SPEC #: [id number] RECD: 04/01/21 08:16 STATUS: NOEMY NIKO #: [id number] KULDIP: 03/29/21 00:[address]: Nathalie Flores DEPT: CYTOLOGY RECD BY: Ishmael Blanc ENTERED: 04/01/21 08:16 SP TYPE: CYSPIN FL OTHR DR: Dr. Luís Rodriguez, Tissues: Urine Procedures: Pap Stain (control) Special Stain Group II Cytospin Fluid HEADER OPERATION: Not noted PRE-OP DIAGNOSIS: Hematuria R21.9 TISSUE SUBMITTED: Urine for cytology DIAGNOSIS CYTOLOGY Urine for cytology (cytospin): Negative for malignant cells. See comment. AM:demetra 04/02/2021 COMMENT The specimen primarily contains squamous epithelial cells. Clinical correlation is suggested. CYTOLOGY STUDY Slides are reviewed. CYTOLOGY GROSS Received is 60 ml of light yellow fluid labeled with the patient's name and and designated per the requisition as urine. Submitted for cytology preparation. / demetra 04/01/2021 TC:5 CPT: 98832
[2021-03-29 17:34] LABS: Cytology, Body Fluid / CSF SEE PATHOLOGY REPORT
== END ==
PROVIDERS: PCP Family Medicine; Referring Provider Urology; Visit Provider Urology
DX: R31.9 Hematuria, unspecified (principal)
CPT/HCPCS: 88108; 88313

== ENCOUNTER → 2021-04-05 14:42 | Outpatient (CLI) | payer MEDICARE, SELFPAY ==
[2021-03-22 13:06] VITALS: BMI 28.9
--- NOTE | 2021-04-05 14:46 | CT_ITS ---
STUDY: CT ABDOMEN AND PELVIS WITHOUT CONTRAST REASON FOR EXAM: Female, 75 years old. FLANK PAIN/HEMATURIA. History of cystocele. RADIATION DOSAGE (If Supplied By Facility): CTDIvol = ( 8.51 ) mGy, DLP = ( 387.13 ) mGycm TECHNIQUE: Transaxial images were obtained from the dome of the diaphragm to the symphysis pubis without oral contrast, and without intravenous contrast. Sagittal and coronal images were reconstructed. Individualized dose optimization techniques were used for this CT. COMPARISON: None. FINDINGS: Mild increased markings in the medial posterior aspect of the right middle lobe suggestive of scarring with focal bronchiectasis. The visualized portions of the heart are within normal limits. There is a 1.8 cm cyst in the upper central portion of the right lobe of the liver. Normal gallbladder and extrahepatic biliary system. Normal spleen. Normal pancreas. Normal bilateral adrenal glands. Small bilateral cortical renal cysts. Normal visualized stomach. Normal small intestine. There are multiple colonic diverticula consistent with diverticulosis. The patient is status post appendectomy. Normal abdominal aorta. Normal inferior vena cava. Normal retroperitoneum. Normal urinary bladder. There is absence of the uterus consistent with a prior hysterectomy. Pessary device is seen in the region of the cervix. There is a left-sided inguinal hernia containing adipose tissue. The patient is status post laminectomy and fusion at the L4-L5 and L5-S1 levels. Grade 2 anterior listhesis of L4 on L5. Disc space narrowing at the L4-L5 and L5-S1 levels as well as at the L1-L2 level. Minimal retrolisthesis of L1 on L2. CT/Abdomen/Pelvis without Cont IMPRESSION: Small bilateral cortical renal cysts. 1.8 cm cyst in the upper central portion of the right lobe of the liver. Scattered sigmoid diverticula. Electronically Signed: Ariel Sousa MD at 15:17 EDT , Service support ,
== END ==
PROVIDERS: PCP Family Medicine; Referring Provider Urology; Visit Provider Urology
DX: R31.9 Hematuria, unspecified (principal); R10.9 Unspecified abdominal pain
CPT/HCPCS: 74176

== ENCOUNTER → 2021-06-26 14:29 | Outpatient (CLI) | payer MEDICARE, SELFPAY ==
[2021-06-26 17:29] LABS: AST(SGOT) 24 U/L (15-37); Alanine Aminotransfer ALT/SGPT 22 U/L (13-56); Albumin, Serum 3.8 g/dL (3.2-5.0); Alkaline Phosphatase 54 U/L (45-117); Anion Gap 5 (5-15); BUN 46 mg/dL (7-18); Calcium,Total 9.4 mg/dL (8.5-10.1); Chloride 102 mmol/L (98-107); Cholesterol 150 mg/dL (200); Creatinine, Serum 1.92 mg/dL (0.55-1.02); EST Glomerular Filtration Rate 27 mL/min (>60); Est Glom Filt Rate - Afr Amer 33 mL/min (>60); Glucose 92 mg/dL (74-106); High Density Lipoprotein 48 mg/dL; Potassium 4.2 mmol/L (3.5-5.1); Protein, Total 7.8 g/dL (6.4-8.2); Sodium Level 134 mmol/L (136-145); Triglycerides 252 mg/dL; Very Low Density Lipoprotein 50 mg/dL (5-40)
== END ==
PROVIDERS: PCP Family Medicine; Referring Provider Family Medicine; Visit Provider Family Medicine
DX: E78.00 Pure hypercholesterolemia, unspecified (principal); I51.9 Heart disease, unspecified
CPT/HCPCS: 36415; 80053; 80061

== ENCOUNTER → 2021-07-10 11:10 | Outpatient (CLI) | payer MEDICARE, SELFPAY ==
[2021-07-10 11:48] LABS: Hematocrit 37.2 % (37-47); Hemoglobin 11.5 g/dL (12.0-15.0); Mean Corp Hgb Conc 30.9 g/dL (32-36); Mean Corpuscular Hgb 29.3 pg (27.0-32.0); Mean Corpuscular Volume 94.9 fL (81-99); Mean Platelet Vol. 11.4 fl (6.2-12.0); Platelet Count 241 K/mm3 (150-450); RBC Distribution Width CV 12.5 % (11.6-14.6); RBC Distribution Width SD 43.2 fl (35.1-43.9); Red Blood Count 3.92 M/mm3 (4.2-5.4); White Blood Count 6.5 K/mm3 (4.4-11.0)
[2021-07-10 12:14] LABS: PTHIN 76.1 pg/mL (18.4-80.1)
[2021-07-10 12:17] LABS: BUN 60 mg/dL (7-18); BUN/Creat Ratio 25.6 RATIO (10-20); Calcium,Total 10.2 mg/dL (8.5-10.1); Chloride 100 mmol/L (98-107); Creatinine, Serum 2.34 mg/dL (0.55-1.02); EST Glomerular Filtration Rate 21 mL/min (>60); Est Glom Filt Rate - Afr Amer 26 mL/min (>60); Ferritin 43 ng/mL (8-252); Glucose 97 mg/dL (74-106); Iron 74 ug/dL (50-170); Iron Binding Capacity,Total 354 ug/dL (250-450); PERCENT IRON SATURATION 20.9 % (15.0-55.0); Phosphorus 4.2 mg/dL (2.5-4.9); Potassium 4.1 mmol/L (3.5-5.1); Sodium Level 137 mmol/L (136-145)
== END ==
PROVIDERS: PCP Family Medicine; Referring Provider Internal Medicine Nephrology; Visit Provider Internal Medicine Nephrology
DX: N18.5 Chronic kidney disease, stage 5 (principal)
CPT/HCPCS: 36415; 80069; 82728; 83540; 83550; 83970; 85027

== ENCOUNTER → 2022-02-03 | Outpatient (CLI) | payer MEDICARE, SELFPAY ==
[2022-02-03 11:03] LABS: Hematocrit 36.7 % (37-47); Hemoglobin 11.4 g/dL (12.0-15.0); Mean Corp Hgb Conc 31.1 g/dL (32-36); Mean Corpuscular Hgb 29.8 pg (27.0-32.0); Mean Corpuscular Volume 95.8 fL (81-99); Mean Platelet Vol. 11.1 fl (6.2-12.0); Platelet Count 286 K/mm3 (150-450); RBC Distribution Width CV 11.9 % (11.6-14.6); RBC Distribution Width SD 41.7 fl (35.1-43.9); Red Blood Count 3.83 M/mm3 (4.2-5.4); White Blood Count 6.9 K/mm3 (4.4-11.0)
[2022-02-03 11:12] LABS: Color, Urine Yellow (Yellow); Glucose, Dipstick Normal (Normal); Ketone-Dipstick Negative (Negative); Leukocyte Esterase-Dipstick 500 /ul (Negative); Nitrite-Dipstick Negative (Negative); Occult Blood-Urine 10 /ul (Negative); Protein-Dipstick Negative (Negative); Urine Bilirubin Dipstick Negative (Negative); Urine Clarity Clear (Clear); Urine Urobilinogen Normal (Normal)
[2022-02-03 11:51] LABS: Albumin, Serum 3.7 g/dL (3.2-5.0); BUN 53 mg/dL (7-18); BUN/Creat Ratio 22.9 RATIO (10-20); Calcium,Total 9.7 mg/dL (8.5-10.1); Chloride 101 mmol/L (98-107); Creatinine, Serum 2.31 mg/dL (0.55-1.02); EST Glomerular Filtration Rate 22 mL/min (>60); Est Glom Filt Rate - Afr Amer 26 mL/min (>60); Glucose 92 mg/dL (74-106); Phosphorus 3.2 mg/dL (2.5-4.9); Potassium 3.5 mmol/L (3.5-5.1); Sodium Level 137 mmol/L (136-145)
== END | disposition home or self-care (01) ==
LOC: LAB 10:35
PROVIDERS: PCP Family Medicine; Referring Provider Internal Medicine Nephrology; Visit Provider Internal Medicine Nephrology
DX: N18.4 Chronic kidney disease, stage 4 (severe) (principal)
CPT/HCPCS: 36415; 80069; 81002; 83970; 85027

== ENCOUNTER → 2022-02-19 | Outpatient (CLI) | payer MEDICARE, SELFPAY ==
--- NOTE | 2022-02-19 13:03 | US_ITS ---
STUDY: RENAL ULTRASOUND - COMPLETE REASON FOR EXAM: Female, 76 years old. N17.9 -- CKD 4 TECHNIQUE: Ultrasound evaluation of the kidneys was performed with real-time and static villaseñor-scale imaging. COMPARISON: Comparison is made with prior study dated 07/04/2020. FINDINGS: RIGHT KIDNEY: Normal location of the right kidney, which is normal in size. The right kidney measures 10 cm x 3.17 x 4.9 cm. There is a normal cortex of the right kidney. The renal cortex measures 1.5 cm. Multiple small cysts are seen. The largest measures 1.3 cm x 1.2 cm x 1.1 cm. Nonobstructive bilateral intrarenal calculi. There is no right hydronephrosis. DISTAL RIGHT URETER: There is non-visualization of the distal right ureter. There is no demonstrated right ureterovesical junction calculus. There is a visualized right ureteral jet. LEFT KIDNEY: Normal location of the left kidney, which is normal in size. The left kidney measures 9.1 cm x 4.2 cm x 4.4 cm. There is diffuse thinning of the renal cortex. The renal cortex measures 8.9 cm. Left renal cysts are seen. The largest measures 1.8 cm x 1 cm x 1.1 cm. There are multiple nonobstructive intrarenal calculi. There is no left hydronephrosis. DISTAL LEFT URETER: There is non-visualization of the distal left ureter. There is no demonstrated left ureterovesical junction calculus. There is a visualized left ureteral jet. BLADDER: The distended urinary bladder has a volume of 140 ml. There is a normal wall thickness of the distended urinary bladder. There is no demonstrated mass within the urinary bladder. There are no demonstrated bladder calculi. US/Kidney and Bladder IMPRESSION: Bilateral renal cysts. Bilateral nonobstructive intrarenal calculi. Electronically Signed: Ariel Sousa MD at 14:50 EDT ,
== END | disposition home or self-care (01) ==
LOC: US 13:02
PROVIDERS: PCP Family Medicine; Referring Provider Internal Medicine Nephrology; Visit Provider Internal Medicine Nephrology
DX: N17.9 Acute kidney failure, unspecified (principal)
CPT/HCPCS: 76770

== ENCOUNTER 2022-03-26 14:09 | Emergency (ER) | payer MEDICARE, SELFPAY ==
[2022-03-26 14:10] VITALS: BP 129/78; PULSE 77; RESP 14; TEMP 36.4; O2SAT 97; BMI 25.6
--- NOTE | 2022-03-26 15:55 | CT_ITS ---
STUDY: CT ABDOMEN AND PELVIS WITHOUT CONTRAST REASON FOR EXAM: Female, 76 years old. abd pain RADIATION DOSAGE (If Supplied By Facility): CTDIvol = ( 7.91 ) mGy, DLP = ( 333.94 ) mGycm TECHNIQUE: Transaxial images were obtained from the dome of the diaphragm to the symphysis pubis without oral contrast, and without intravenous contrast. Sagittal and coronal images were reconstructed. Individualized dose optimization techniques were used for this CT. COMPARISON: 04/05/2021 FINDINGS: Lung bases clear. A stable 1.6 cm cyst in the right lobe of the liver. No definite cholelithiasis. Unremarkable spleen, pancreas, and adrenals. Multiple grossly stable hyperdense/hemorrhagic cyst in the bilateral kidneys. No radiopaque urolithiasis or hydroureteronephrosis on either side. No CT evidence of acute appendicitis. Circumferential wall thickening of the descending and sigmoid colon and rectum with surrounding fat stranding, compatible with acute proctocolitis. Distal colonic diverticula. Bowel loops nonobstructed. No free air or free fluid. No adenopathy. Vascular calcification. No abdominal aortic aneurysm. Sections through the pelvis demonstrate a grossly unremarkable urinary bladder. Status post hysterectomy. Pessary ring in place. Fat-containing left inguinal hernia. Prior L4-L5 laminectomy with L4-S1 posterior pedicle screw fusion. Mild anterior slippage of L4 on L5 and L5 on S1, most likely degenerative. Also, posterior slippage of L1 on L2, degenerative. CT/Abdomen/Pel W ORAL Cont Only IMPRESSION: Acute infectious/inflammatory proctocolitis. Distal colonic diverticulosis. Other chronic findings as above. Electronically Signed: Kameron Velasquez MD at 18:49 EDT ,
--- NOTE | 2022-03-26 15:57 | EDS_ITS ---
HPI History of Present Illness Chief Complaint: Abd Pain Informant: patient Onset/Context/Timing Onset: Days (4 days) Context: Gradual Onset Current Severity: Moderate Maximum Severity: Moderate Narrative Narrative: Patient presents with 4-day history of abdominal pain. She states she has a history of ischemic colon and she will get flares of pain intermittently. Usually goes away rather quickly but this episode has been more persistent. She reports having some chills at home but did not measure her temperature. She has had nausea, vomiting, diarrhea. She denies urinary symptoms. She denies having blood in her stool. [facility] Medical History Anemia Back problem Blood clot in vein Chronic bronchitis Chronic headaches Gastrointestinal problem Glaucoma Gout Heart disease High blood pressure High calcium levels High cholesterol history Cystocele and rectocele Kidney failure Osteoporosis Parathyroid disorder Stroke Vision problems Home Medications calcitriol 0.25 mcg capsule 0.25 mcg PO .tiw 04/22/18 [History Last Taken Unknown] latanoprost 0.005 % eye drops 1 drp ophthalmic (eye) QPM 04/22/18 [History Last Taken Unknown] lisinopril 5 mg tablet 10 mg PO QDAY 04/22/18 [History Last Taken Unknown] acetaminophen 500 mg tablet (Tylenol Extra Strength) 500 mg PO Q4H 04/12/19 [History Last Taken Unknown] polyethylene glycol 3350 17 gram/dose oral powder (Miralax) 17 g PO .QOD 04/13/19 [History Last Taken Unknown] cholecalciferol (vitamin D3) 50 mcg (2,000 unit) capsule 50 mcg PO DAILY 01/17/21 [History Last Taken Unknown] furosemide 40 mg tablet 60 mg PO DAILY 01/17/21 [History Last Taken Unknown] calcium citrate 200 mg (950 mg) tablet 200 mg PO DAILY 04/10/21 [History Last Taken Unknown] rosuvastatin 5 mg tablet (Crestor) 5 mg PO QDAY #90 tabs 10/11/21 [Rx Last Taken Unknown] atenolol 50 mg tablet 25 mg PO BID #180 tabs 10/16/21 [Rx Last Taken Unknown] aspirin 25 mg-dipyridamole 200 mg capsule,ext.release 12 hr multiphase 1 cap PO BID #180 caps 11/28/21 [Rx Last Taken Unknown] febuxostat 40 mg tablet (Uloric) 40 mg PO QDAY #90 tabs 12/12/21 [Rx Last Taken Unknown] ciprofloxacin HCl 500 mg tablet (Cipro) 500 mg PO BID #20 tabs 03/26/22 [Rx Last Taken Unknown] metronidazole 500 mg tablet 500 mg PO BID 10 days #20 tabs 03/26/22 [Rx Last Taken Unknown] Allergy/AdvReac Type Severity Reaction Status Date / Time amlodipine besylate Allergy Swelling Verified 03/26/22 14:12 [From Norvasc] clindamycin Allergy Rash Verified 03/26/22 14:12 codeine AdvReac Vomiting Verified 03/26/22 14:12 meperidine HCl [From Demerol] AdvReac Vomiting Verified 03/26/22 14:12 Family History Father Angina pectoris CVA (cerebral vascular accident) Heart disease Brother Angina pectoris Kidney disease Heart disease Sister Angina pectoris Heart disease Mother Blood clot in vein Bowel disease Colon cancer Uterine cancer Surgical History History of appendectomy History of hysterectomy History of knee surgery History of spinal surgery History of tubal ligation History of vein stripping Social History Smoking Status: Never smoker alcohol intake: never substance use type: does not use what type of physical activity do you participate in: walking ROS ROS ED Constitutional Constitutional ED: Reports chills and sweats; Denies fever(s) Eyes Eyes: Denies change in vision or discharge from eye(s) ENT ENT ED: Denies discharge from eye(s), rhinorrhea or sore throat Cardiovascular Cardiovascular: Denies chest pain or palpitations Respiratory/Chest Respiratory/Chest: Denies cough or dyspnea Gastrointestinal Gastrointestinal: Reports abdominal pain, diarrhea, nausea and vomiting Genitourinary Genitourinary ED: Denies difficulty urinating or dysuria Musculoskeletal Musculoskeletal: Denies back pain or extremity pain Integumentary Denies Abrasions or rash Neurologic Neurologic: Reports weakness; Denies headache(s) Psychiatric Psychiatric: Denies anxiety or depression Allergic/Immunologic Allergic/Immunologic ED: Denies lip swelling or urticaria EXAM Physical Exam Const Vital Signs: 03/26/22 14:10 03/26/22 17:55 Temperature 97.6 F L Temperature Source Temporal Pulse Rate 77 70 Respiratory Rate 14 18 Blood Pressure 129/78 H 141/76 H Blood Pressure Mean 95 97 Pulse Ox 97 95 Oxygen Delivery Method Room Air Room Air Positive well nourished and well developed General Appearance ED: well developed HEENT Reports normocephalic and head/scalp atraumatic Eyes PERRL and EOMs intact bilaterally Neck supple Chest Wall inspection of chest normal and palpation of chest normal Resp normal respiratory effort and clear to auscultation bilaterally Cardio regular rate and regular rhythm GI GI Narrative: Left lower quadrant tenderness to palpation. No guarding or rebound. Normal bowel sounds noted. Palpation: soft Extremity normal to inspection Neuro oriented x3 and no sensory deficits noted Sensorium / Orientation: alert Motor Exam: strength 5/5 throughout Psych mental status grossly normal Skin no rashes or lesions noted MDM MDM MDM Narrative Medical decision making narrative: Patient declined anything for pain or nausea. Lab work obtained, urinalysis, CT abdomen and pelvis. Lab Data Attestation: I reviewed the patient's lab results. Labs: Laboratory Results - last 24 hr 03/26/22 03/26/22 03/26/22 16:05 16:15 16:15 WBC 12.6 H RBC 3.96 L Hgb 11.8 L Hct 37.3 MCV 94.2 MCH 29.8 MCHC 31.6 L RDW Std Deviation 44.2 H RDW Coeff of Ld 12.8 Plt Count 251 MPV 11.1 Immature Gran % (Auto) 0.400 Neut % (Auto) 77.0 H Lymph % (Auto) 10.0 L [place] % (Auto) 11.0 H Eos % (Auto) 1.4 Baso % (Auto) 0.2 Absolute Neuts (auto) 9.7 H Absolute Lymphs (auto) 1.26 Nucleated RBC % 0 Sodium 133 L Potassium 3.5 Chloride 100 Carbon Dioxide 24.0 Anion Gap 9 BUN 48 H Creatinine 2.77 H Estim Creat Clear Calc 13.24 Est GFR (MDRD) Af Amer 21 L Est GFR (MDRD) Non-Af 18 L BUN/Creatinine Ratio 17.3 Glucose 102 Lactic Acid Calcium 10.0 Total Bilirubin 0.40 Direct Bilirubin 0.10 AST 24 ALT 19 Alkaline Phosphatase 67 Total Protein 8.5 H Albumin 4.0 Globulin 4.5 H Urine Color Yellow Urine Clarity Clear Urine pH 5.0 Ur Specific [place] 1.015 Urine Protein 15 H Urine Glucose (UA) Normal Urine Ketones Negative Urine Occult Blood 10 H Urine Nitrite Negative Urine Bilirubin Negative Urine Urobilinogen Normal Ur Leukocyte Esterase 500 H Urine RBC 0-5 SEEN Urine WBC 5-10 SEEN Ur Squamous Epith Cells 0-5 SEEN Urine Bacteria 1+ Urine Mucus 0 SEEN 03/26/22 16:15 WBC RBC Hgb Hct MCV MCH MCHC RDW Std Deviation RDW Coeff of Ld Plt Count MPV Immature Gran % (Auto) Neut % (Auto) Lymph % (Auto) [place] % (Auto) Eos % (Auto) Baso % (Auto) Absolute Neuts (auto) Absolute Lymphs (auto) Nucleated RBC % Sodium Potassium Chloride Carbon Dioxide Anion Gap BUN Creatinine Estim Creat Clear Calc Est GFR (MDRD) Af Amer Est GFR (MDRD) Non-Af BUN/Creatinine Ratio Glucose Lactic Acid 0.9 Calcium Total Bilirubin Direct Bilirubin AST ALT Alkaline Phosphatase Total Protein Albumin Globulin Urine Color Urine Clarity Urine pH Ur Specific [place] Urine Protein Urine Glucose (UA) Urine Ketones Urine Occult Blood Urine Nitrite Urine Bilirubin Urine Urobilinogen Ur Leukocyte Esterase Urine RBC Urine WBC Ur Squamous Epith Cells Urine Bacteria Urine Mucus Radiography Diagnostic Testing: Clinical Impression(s) from Imaging Studies Abdomen CT 03/26/22 15:55 IMPRESSION: Acute infectious/inflammatory proctocolitis. Distal colonic diverticulosis. Other chronic findings as above. Electronically Signed: Kameron Velasquez MD at 18:49 EDT Reading Location ID and State: [facility] / [place] Tel , Service support , Treatment and Re-Evaluation Narrative: Lab work remarkable for slightly elevated white count at 12.6 with 77% neutrophils. Chemistry studies reveal a BUN of 48 and creatinine of 2.77. This is only slightly elevated above her baseline. Urinalysis does show 500 leukocyte esterase with 5-10 white cells and 1+ bacteria. Lactic acid is normal. CT scan was performed with p.o. contrast only. There is evidence of acute infectious or inflammatory proctocolitis. There is evidence of diverticulosis. Patient will be covered with Cipro and Flagyl. I did recommend follow-up with GI as she has been having recurrent bowel issues which she believes to be ischemic colon. Return instructions are provided. Discharge Plan Triage Chief Complaint: Abd Pain ED Provider: Zuleika Beal Dx/Rx/DC Orders Clinical Impression: Colitis, UTI (urinary tract infection) Instructions: ED Gastroenteritis, Bacterial (Adult), ED CYSTITIS Female Adult Prescriptions: New metronidazole 500 mg tablet 500 mg PO BID 10 Days Qty: 20 0RF ciprofloxacin HCl [Cipro] 500 mg tablet 500 mg PO BID Qty: 20 0RF No Action calcitriol 0.25 mcg capsule 0.25 mcg PO .tiw lisinopril 5 mg tablet 10 mg PO QDAY latanoprost 0.005 % drops 1 drp OPHTHALMIC QPM polyethylene glycol 3350 [Miralax] 17 gram/dose powder 17 g PO .QOD acetaminophen [Tylenol Extra Strength] 500 mg tablet 500 mg PO Q4H furosemide 40 mg tablet 60 mg PO DAILY cholecalciferol (vitamin D3) 50 mcg (2,000 unit) capsule 50 mcg PO DAILY calcium citrate 200 mg (950 mg) tablet 200 mg PO DAILY rosuvastatin [Crestor] 5 mg tablet 5 mg PO QDAY Qty: 90 2RF atenolol 50 mg tablet 25 mg PO BID Qty: 180 2RF aspirin-dipyridamole 25-200 mg capsule, ER multiphase 12 hr 1 cap PO BID Qty: 180 1RF Uloric 40 mg tablet 40 mg PO QDAY Qty: 90 1RF Primary Care Provider: Luís Rodriguez Referrals: Luís Rodriguez DO [Primary Care Provider] - 1-2 Weeks Robb Leyva DO [STAFF PHYSICIAN] - As Needed Disposition Disposition: Home, Self Care
[2022-03-26 16:23] LABS: Mucous, Urine 0 SEEN /hpf (<or=2+)
[2022-03-26 16:27] LABS: Color, Urine Yellow (Yellow); Glucose, Dipstick Normal (Normal); Ketone-Dipstick Negative (Negative); Leukocyte Esterase-Dipstick 500 /ul (Negative); Nitrite-Dipstick Negative (Negative); Occult Blood-Urine 10 /ul (Negative); Protein-Dipstick 15 mg/dl (Negative); Specific Gravity, Urine 1.015 (1.002-1.030); Urine Bilirubin Dipstick Negative (Negative); Urine Clarity Clear (Clear); Urine Urobilinogen Normal (Normal)
[2022-03-26] MEDS: 0.9% Normal Saline 1,000 ML 150 ML IV (16:27)
[2022-03-26 16:33] LABS: Absolute Lymphocyte Count 1.26 X10^3/uL (0.83-4.51); Absolute Neutrophil Count 9.7 X10^3/uL (2.0-7.7); Basophil# 0.03 X10^3/uL; Basophil% 0.2 % (0-1); Eosinophil# 0.18 X10^3/uL; Eosinophils% 1.4 % (0-5); Hematocrit 37.3 % (37-47); Hemoglobin 11.8 g/dL (12.0-15.0); Lymphocyte # 1.26 X10^3/ul (0.83-4.51); Mean Corp Hgb Conc 31.6 g/dL (32-36); Mean Corpuscular Hgb 29.8 pg (27.0-32.0); Mean Corpuscular Volume 94.2 fL (81-99); Mean Platelet Vol. 11.1 fl (6.2-12.0); Monocyte# 1.38 X10^3/uL; NRBC Flagged by Analyzer 0 % (0-5); Neutrophil # 9.67 X10^3/uL (2.7-7.7); Platelet Count 251 K/mm3 (150-450); RBC Distribution Width CV 12.8 % (11.6-14.6); RBC Distribution Width SD 44.2 fl (35.1-43.9); Red Blood Count 3.96 M/mm3 (4.2-5.4); White Blood Count 12.6 K/mm3 (4.4-11.0)
[2022-03-26 16:44] LABS: Red Blood Cells-Urine 0-5 SEEN /hpf (0-5); White Blood Cells 5-10 SEEN /hpf (0-5)
[2022-03-26 16:45] LABS: Bacteria 1+ /hpf (None Seen); Squamous Epithelial Cells - UA 0-5 SEEN /hpf (5-10)
[2022-03-26 16:48] LABS: Lactic Acid 0.9 mmol/L (0.4-1.9)
[2022-03-26 17:19] LABS: AST(SGOT) 24 U/L (15-37); Alanine Aminotransfer ALT/SGPT 19 U/L (13-56); Alkaline Phosphatase 67 U/L (45-117); Anion Gap 9 (5-15); BUN 48 mg/dL (7-18); BUN/Creat Ratio 17.3 RATIO (10-20); Chloride 100 mmol/L (98-107); Creatinine, Serum 2.77 mg/dL (0.55-1.02); EST Glomerular Filtration Rate 18 mL/min (>60); Est Glom Filt Rate - Afr Amer 21 mL/min (>60); Estimated Creatinine Clearance 13.24 ml/min; Globulin 4.5 g/dL (2.2-4.2); Glucose 102 mg/dL (74-106); Potassium 3.5 mmol/L (3.5-5.1); Protein, Total 8.5 g/dL (6.4-8.2); Sodium Level 133 mmol/L (136-145)
[2022-03-26 17:55] VITALS: BP 141/76; PULSE 70; RESP 18; O2SAT 95
[2022-03-26] MEDS: metroNIDAZOLE 500 MG Tablet PO (20:26)
[2022-03-26] MEDS: Ciprofloxacin 500 MG Tablet PO (20:26)
[2022-03-26 21:01] VITALS: BP 136/64; PULSE 75; RESP 16; O2SAT 98
== END 2022-03-26 21:02 | disposition home or self-care (01) ==
PROVIDERS: Emergency Provider Emergency Medicine; PCP Family Medicine; Visit Provider Emergency Medicine
DX: K52.9 Noninfective gastroenteritis and colitis, unspecified (principal); N39.0 Urinary tract infection, site not specified; E78.00 Pure hypercholesterolemia, unspecified; I10 Essential (primary) hypertension; Z79.82 Long term (current) use of aspirin; Z79.899 Other long term (current) drug therapy; Z86.73 Personal history of transient ischemic attack (TIA), and cerebral infarction without residual deficits
CPT/HCPCS: 74176; 80048; 80076; 81001; 83605; 85025; 99283; J7030; A4216

== ENCOUNTER → 2022-04-15 | Outpatient (CLI) | payer MEDICARE, SELFPAY ==
[2022-04-15 13:33] LABS: Absolute Lymphocyte Count 0.66 X10^3/uL (0.83-4.51); Absolute Neutrophil Count 8.2 X10^3/uL (2.0-7.7); Basophil# 0.02 X10^3/uL; Basophil% 0.2 % (0-1); Eosinophil# 0.01 X10^3/uL; Eosinophils% 0.1 % (0-5); Lymphocyte # 0.66 X10^3/ul (0.83-4.51); Lymphocyte % 6.8 % (19-41); Mean Corp Hgb Conc 31.4 g/dL (32-36); Mean Corpuscular Hgb 29.7 pg (27.0-32.0); Mean Corpuscular Volume 94.6 fL (81-99); Mean Platelet Vol. 11.7 fl (6.2-12.0); Monocyte# 0.86 X10^3/uL; Monocyte% 8.8 % (0-10); NRBC Flagged by Analyzer 0 % (0-5); Neutrophil % 83.9 % (47-70); POSITIVE MORPHOLOGY YES; Platelet Count 249 K/mm3 (150-450); RBC Distribution Width CV 13.7 % (11.6-14.6); RBC Distribution Width SD 47.3 fl (35.1-43.9); White Blood Count 9.8 K/mm3 (4.4-11.0)
[2022-04-15 13:40] LABS: Differential Indicated SCAN CRITERIA MET
[2022-04-15 13:41] LABS: Erythrocyte Sedimentation Rate 19 mm/hr (0-30)
[2022-04-15 14:00] LABS: Differential Comment SCANNED
[2022-04-16 17:07] LABS: Endomysial Antibody IgA Negative (Negative)
[2022-04-16 19:33] LABS: Immunoglobulin A 148 mg/dL (64-422); t-Transglutaminase IgA <2 U/mL (0-3)
[2022-04-22 14:20] LABS: Calprotectin, Stool 1376 ug/g (0-120)
== END | disposition home or self-care (01) ==
PROVIDERS: PCP Family Medicine; Referring Provider Internal Medicine Gastroenterology; Visit Provider Internal Medicine Gastroenterology
DX: R19.7 Diarrhea, unspecified (principal); K52.9 Noninfective gastroenteritis and colitis, unspecified; K58.9 Irritable bowel syndrome, unspecified
CPT/HCPCS: 36415; 82653; 82784; 83516; 83630; 83993; 85025; 85652; 86140; 86255; 87177; 87209; 87493; 87506

== ENCOUNTER → 2022-04-25 | Outpatient (CLI) | payer MEDICARE, SELFPAY ==
[2022-05-01 12:51] LABS: Pancreatic Elastase, Fecal 325 (>200)
== END | disposition home or self-care (01) ==
PROVIDERS: PCP Family Medicine; Referring Provider Internal Medicine Gastroenterology; Visit Provider Internal Medicine Gastroenterology
DX: K52.9 Noninfective gastroenteritis and colitis, unspecified (principal)
CPT/HCPCS: 82653

== ENCOUNTER → 2022-05-14 | Outpatient (CLI) | payer MEDICARE, SELFPAY | END | disposition home or self-care (01) | LOC: LAB 09:51 → LABSPEC 09:53 | PROVIDERS: PCP Family Medicine; Referring Provider Internal Medicine Gastroenterology; Visit Provider Internal Medicine Gastroenterology | DX: Z86.19 Personal history of other infectious and parasitic diseases (principal) | CPT/HCPCS: 87493 ==

== ENCOUNTER 2022-05-24 10:01 | Outpatient (CLI) | payer MEDICARE, SELFPAY ==
--- NOTE | 2022-05-22 11:14 | NURSING ---
Patient came for outpatient infusion. It was determined that her medication was not ordered and could not be obtained today. Recovery performed with patient and her . Educational materials on medication provided. Sent all orders to infusion center pharmacy to be ordered.
[2022-05-24 10:27] VITALS: BP 135/80; PULSE 57; RESP 18; TEMP 36.4; O2SAT 99
== END 2022-05-24 12:00 | disposition home or self-care (01) ==
LOC: MEDOUTP 10:08 → MS3 10:10
PROVIDERS: PCP Family Medicine; Referring Provider Internal Medicine Gastroenterology; Visit Provider Internal Medicine Gastroenterology
DX: A49.8 Other bacterial infections of unspecified site (principal)

== ENCOUNTER → 2022-05-24 | Outpatient (CLI) | payer MEDICARE, SELFPAY ==
[2022-05-24 10:35] VITALS: BP 135/80; PULSE 57; RESP 18; TEMP 36.4; O2SAT 99
== END | disposition home or self-care (01) ==
LOC: MEDOUTP 06-16 09:34
PROVIDERS: PCP Family Medicine; Referring Provider Internal Medicine Gastroenterology; Visit Provider Internal Medicine Gastroenterology
DX: A49.8 Other bacterial infections of unspecified site (principal)
CPT/HCPCS: 96365; 96366; J0565

== ENCOUNTER → 2022-08-20 | Outpatient (CLI) | payer MEDICARE, SELFPAY ==
[2022-08-20 15:12] LABS: Absolute Lymphocyte Count 2.31 X10^3/uL (0.83-4.51); Basophil# 0.06 X10^3/uL; Basophil% 0.7 % (0-1); Eosinophil# 0.28 X10^3/uL; Eosinophils% 3.2 % (0-5); Hematocrit 33.6 % (37-47); Hemoglobin 10.3 g/dL (12.0-15.0); Lymphocyte # 2.31 X10^3/ul (0.83-4.51); Lymphocyte % 26.3 % (19-41); Mean Corp Hgb Conc 30.7 g/dL (32-36); Mean Corpuscular Hgb 30.4 pg (27.0-32.0); Mean Corpuscular Volume 99.1 fL (81-99); Mean Platelet Vol. 10.7 fl (6.2-12.0); Monocyte% 12.5 % (0-10); NRBC Flagged by Analyzer 0 % (0-5); Neutrophil # 5.03 X10^3/uL (2.7-7.7); Neutrophil % 57.1 % (47-70); Platelet Count 274 K/mm3 (150-450); RBC Distribution Width CV 12.5 % (11.6-14.6); RBC Distribution Width SD 45.3 fl (35.1-43.9); Red Blood Count 3.39 M/mm3 (4.2-5.4); White Blood Count 8.8 K/mm3 (4.4-11.0)
[2022-08-20 15:43] LABS: AST(SGOT) 21 U/L (15-37); Alanine Aminotransfer ALT/SGPT 20 U/L (13-56); Alkaline Phosphatase 64 U/L (45-117); Anion Gap 8 (5-15); BUN 43 mg/dL (7-18); BUN/Creat Ratio 19.2 RATIO (10-20); Calcium,Total 9.7 mg/dL (8.5-10.1); Chloride 103 mmol/L (98-107); Cholesterol 152 mg/dL (200); Creatinine, Serum 2.24 mg/dL (0.55-1.02); EST Glomerular Filtration Rate 22 mL/min (>60); Est Glom Filt Rate - Afr Amer 27 mL/min (>60); Glucose 91 mg/dL (74-106); High Density Lipoprotein 37 mg/dL; Potassium 3.8 mmol/L (3.5-5.1); Sodium Level 140 mmol/L (136-145); Triglycerides 332 mg/dL; Very Low Density Lipoprotein 66 mg/dL (5-40)
== END | disposition home or self-care (01) ==
LOC: LAB 14:47
PROVIDERS: PCP Family Medicine; Visit Provider Family Medicine
DX: D64.9 Anemia, unspecified (principal); I10 Essential (primary) hypertension
CPT/HCPCS: 36415; 80053; 80061; 85025

== ENCOUNTER → 2022-09-03 | Outpatient (CLI) | payer MEDICARE, SELFPAY ==
--- NOTE | 2022-09-03 14:00 | LES_PTH ---
PATIENT: TANJA ATKINSON LOC: [facility] U#:[id number] AGE/SX: 77/F ROOM: RE09/03/[address]: Dr. Luís Rodriguez DO : 1945 BED: DIS: 09/03/2022 SPEC #: [id number] RECD: 09/03/22 16:28 STATUS: NOEMY NIKO #: [id number] KULDIP: 09/03/22 14:[address]: Luís Rodriguez DEPT: SURGICAL PATHOLOGY RECD BY: Veronique Kiran Tissues: Skin of hand and finger, NOS Procedures: Surgery Specimen Level IV HEADER OPERATION: Removal of left hand lesion PRE-OP DIAGNOSIS: Cutaneous horn TISSUE SUBMITTED: Left hand lesion MICROSCOPIC DIAGNOSIS Skin lesion of left hand, biopsy: Fragments of squamous cell carcinoma. See comment. AM:demetra 09/05/2022 COMMENT The lesion extends to the deep margins of excision. Complete excision of lesion is recommended for definitive classification. MICROSCOPIC DESCRIPTION Slides are reviewed. GROSS DESCRIPTION Received is one container labeled with the patient's name and not further designated. The specimen consists of an irregular fragment of light bruner excised skin measuring 0.8 x 0.5 x 0.5 cm. The specimen is inked, bisected and totally submitted in one cassette. / AM:demetra 09/04/2022 TC:0 [facility]: [id number]
--- NOTE | 2022-09-03 14:09 | RAD_ITS ---
STUDY: X-RAY CHEST REASON FOR EXAM: Female, 77 years old. Fever and cough TECHNIQUE: PA and lateral views of the chest. COMPARISON: 2016 FINDINGS: Lungs are mildly hyperexpanded without a superimposed acute pulmonary process. There is no demonstrated pleural abnormality. Normal size heart. Normal mediastinum and steph. Normal visualized pulmonary arteries. Normal visualized aortic arch and descending thoracic aorta. There are diffuse degenerative changes of the visualized thoracic spine. Normal visualized ribs, clavicles, and shoulders. There is no demonstrated abnormality of the visualized soft tissue structures of the upper abdomen. RAD/Chest PA and Lateral IMPRESSION: Mildly hyperexpanded lungs without a superimposed acute pulmonary process Electronically Signed: Rio Holguin MD at 14:48 EST ,
== END | disposition home or self-care (01) ==
PROVIDERS: PCP Family Medicine; Referring Provider Family Medicine; Visit Provider Family Medicine
DX: R05.9 Cough, unspecified (principal)
CPT/HCPCS: 71046; 88305

== ENCOUNTER → 2022-10-01 | Outpatient (CLI) | payer MEDICARE, SELFPAY ==
--- NOTE | 2022-10-01 16:20 | LES_PTH ---
PATIENT: TANJA ATKINSON LOC: [facility] U#:[id number] AGE/SX: 77/F ROOM: RE10/01/[address]: Dr. Luís Rodriguez DO : 1945 BED: DIS: 10/01/2022 SPEC #: [id number] RECD: 10/02/22 12:17 STATUS: NOEMY NIKO #: [id number] KULDIP: 10/01/22 16:[address]: Luís Rodriguez DEPT: SURGICAL PATHOLOGY RECD BY: Shaniqua Billings Tissues: TISSUE SURGICALLY REMOVED Procedures: Surgery Specimen Level IV HEADER OPERATION: Shave excision PRE-OP DIAGNOSIS: Squamous cell carcinoma TISSUE SUBMITTED: Shave excision MICROSCOPIC DIAGNOSIS Skin lesion, shave biopsy: Atypical squamous epithelial lesion. Solar elastosis. SJ:demetra 10/03/2022 COMMENT Complete excision of the lesion is suggested, if clinically indicated. Please make reference to previous specimen ([id number]) skin lesion of left hand, biopsy with diagnosis of ?fragments of squamous cell carcinoma.? Clinical correlation and appropriate follow up are necessary. Case has been reviewed in consultation with Dr. Knowles who concurs with the above diagnosis. IDC:AM MICROSCOPIC DESCRIPTION Slides are reviewed. GROSS DESCRIPTION Received is one container labeled with the patient's name and not further designated. The specimen consists of a shave biopsy of bruner-white skin measuring 0.7 x 0.3 x 0.1 cm. The specimen is inked, sectioned and submitted entirely in one cassette. / SJ:rg 10/02/2022 TC:5 CPT: 63635
== END | disposition home or self-care (01) ==
LOC: LABSPEC 10-02 14:02
PROVIDERS: PCP Family Medicine; Referring Provider Family Medicine; Visit Provider Family Medicine
DX: C44.92 Squamous cell carcinoma of skin, unspecified (principal)
CPT/HCPCS: 88305

== ENCOUNTER → 2022-10-07 | Outpatient (CLI) | payer MEDICARE, SELFPAY ==
[2022-10-07 11:29] LABS: Erythrocyte Sedimentation Rate 36 mm/hr (0-30)
[2022-10-07 11:30] LABS: Absolute Lymphocyte Count 1.55 X10^3/uL (0.83-4.51); Absolute Neutrophil Count 3.9 X10^3/uL (2.0-7.7); Basophil# 0.04 X10^3/uL; Basophil% 0.6 % (0-1); Eosinophil# 0.27 X10^3/uL; Eosinophils% 4.1 % (0-5); Hematocrit 34.5 % (37-47); Hemoglobin 11.1 g/dL (12.0-15.0); Lymphocyte # 1.55 X10^3/ul (0.83-4.51); Lymphocyte % 23.8 % (19-41); Mean Corp Hgb Conc 32.2 g/dL (32-36); Mean Corpuscular Hgb 30.3 pg (27.0-32.0); Mean Corpuscular Volume 94.3 fL (81-99); Mean Platelet Vol. 10.9 fl (6.2-12.0); Monocyte# 0.78 X10^3/uL; NRBC Flagged by Analyzer 0 % (0-5); Neutrophil # 3.85 X10^3/uL (2.7-7.7); Platelet Count 235 K/mm3 (150-450); RBC Distribution Width CV 11.9 % (11.6-14.6); RBC Distribution Width SD 41.2 fl (35.1-43.9); Red Blood Count 3.66 M/mm3 (4.2-5.4); White Blood Count 6.5 K/mm3 (4.4-11.0)
[2022-10-07 11:52] LABS: AST(SGOT) 20 U/L (15-37); Alanine Aminotransfer ALT/SGPT 17 U/L (13-56); Albumin, Serum 3.9 g/dL (3.2-5.0); Alkaline Phosphatase 59 U/L (45-117); Anion Gap 7 (5-15); BUN 57 mg/dL (7-18); CRP 3.97 mg/L (0.0-3.0); Calcium,Total 10.2 mg/dL (8.5-10.1); Chloride 103 mmol/L (98-107); Creatinine, Serum 2.48 mg/dL (0.55-1.02); EST Glomerular Filtration Rate 20 mL/min (>60); Est Glom Filt Rate - Afr Amer 24 mL/min (>60); Globulin 4.1 g/dL (2.2-4.2); Glucose 93 mg/dL (74-106); LDH 201 U/L (84-246); Sodium Level 137 mmol/L (136-145)
[2022-10-08 12:08] LABS: Anti-Centromere B Ab <0.2 AI (0.0-0.9); Anti-Chromatin <0.2 AI (0.0-0.9); Anti-Jo <0.2 AI (0.0-0.9); Anti-Scleroderma-70 AB <0.2 AI (0.0-0.9); RNP Ab <0.2 AI (0.0-0.9); SJOGREN'S Anti-SS-A test < 0.2 AI (0.0-0.9); SJOGREN'S Anti-SS-B test < 0.2 AI (0.0-0.9); Smith Ab <0.2 AI (0.0-0.9)
[2022-10-08 15:08] LABS: Endomysial Antibody IgA Negative (Negative)
[2022-10-08 19:22] LABS: Immunoglobulin A 141 mg/dL (64-422); t-Transglutaminase IgA <2 U/mL (0-3)
[2022-10-08 19:24] LABS: Anti-dsDNA Ab <1 IU/mL (0-9)
[2022-10-10 11:08] LABS: Alpha-1-Globulins 0.3 g/dL (0.0-0.4); Alpha-2-Globulins 0.9 g/dL (0.4-1.0); Cytoplasmic Ab (C-ANCA) <1:20 titer (Neg:<1:20); Gamma Globulin 1.3 g/dL (0.4-1.8); Immunoglobulin A 141 mg/dL (64-422); Immunoglobulin E 12 IU/mL (6-495); Immunoglobulin G 1404 mg/dL (586-1602); Immunoglobulin M 135 mg/dL (26-217); PROEL- TOTAL PROTEIN 7.5 g/dL (6.0-8.5)
[2022-10-10 19:24] LABS: Perinuclear Ab (P-ANCA) <1:20 titer (Neg:<1:20)
[2022-10-11 10:25] LABS: Calprotectin, Stool 136 ug/g (0-120)
== END | disposition home or self-care (01) ==
PROVIDERS: PCP Family Medicine; Referring Provider Internal Medicine Gastroenterology; Visit Provider Internal Medicine Gastroenterology
DX: R10.9 Unspecified abdominal pain (principal); D64.9 Anemia, unspecified
CPT/HCPCS: 36415; 80053; 82784; 82785; 83516; 83615; 83630; 83993; 84165; 85025; 85652; 86140; 86225; 86235; 86255; 86256; 86334

== ENCOUNTER → 2022-12-15 | Outpatient (CLI) | payer MEDICARE, SELFPAY ==
[2022-12-15 11:34] LABS: Absolute Lymphocyte Count 1.83 X10^3/uL (0.83-4.51); Absolute Neutrophil Count 3.8 X10^3/uL (2.0-7.7); Basophil# 0.05 X10^3/uL; Basophil% 0.7 % (0-1); Eosinophil# 0.26 X10^3/uL; Eosinophils% 3.8 % (0-5); Hematocrit 35.5 % (37-47); Lymphocyte # 1.83 X10^3/ul (0.83-4.51); Lymphocyte % 26.8 % (19-41); Mean Corpuscular Hgb 29.4 pg (27.0-32.0); Mean Corpuscular Volume 94.9 fL (81-99); Mean Platelet Vol. 10.3 fl (6.2-12.0); Monocyte% 13.2 % (0-10); NRBC Flagged by Analyzer 0 % (0-5); Neutrophil # 3.79 X10^3/uL (2.7-7.7); Neutrophil % 55.4 % (47-70); Platelet Count 250 K/mm3 (150-450); RBC Distribution Width CV 12.7 % (11.6-14.6); RBC Distribution Width SD 44.1 fl (35.1-43.9); Red Blood Count 3.74 M/mm3 (4.2-5.4); White Blood Count 6.8 K/mm3 (4.4-11.0)
[2022-12-15 11:43] LABS: Protein, Urine (Random) 16.9 mg/dL (<11.9); Protein:Creat Ratio 110 mg/g CRE (0-200)
[2022-12-15 11:55] LABS: Anion Gap 6 (5-15); BUN 48 mg/dL (7-18); BUN/Creat Ratio 21.1 RATIO (10-20); Calcium,Total 9.8 mg/dL (8.5-10.1); Chloride 104 mmol/L (98-107); Creatinine, Serum 2.28 mg/dL (0.55-1.02); EST Glomerular Filtration Rate 22 mL/min (>60); Est Glom Filt Rate - Afr Amer 27 mL/min (>60); Glucose 89 mg/dL (74-106); Potassium 3.7 mmol/L (3.5-5.1); Sodium Level 138 mmol/L (136-145)
== END | disposition home or self-care (01) ==
LOC: LAB 11:13
PROVIDERS: PCP Family Medicine; Referring Provider Internal Medicine Nephrology; Visit Provider Internal Medicine Nephrology
DX: N18.4 Chronic kidney disease, stage 4 (severe) (principal)
CPT/HCPCS: 36415; 80048; 82570; 84156; 85025

== ENCOUNTER → 2023-01-02 | Outpatient (CLI) | payer MEDICARE, SELFPAY ==
--- NOTE | 2023-01-02 10:27 | RAD_ITS ---
INDICATION: swelling EXAMINATION/TECHNIQUE: X-RAY - XR Chest 2 Views COMPARISON: None. FINDINGS: LINES/DEVICES: None. LUNGS: No consolidation, edema or effusion. No pneumothorax. MEDIASTINUM AND CARDIOVASCULAR STRUCTURES: Cardiac silhouette not enlarged. Central airways and mediastinal contour are unremarkable. BONES AND SOFT TISSUES: Degenerative lumbar changes with scoliosis. Lower lumbar surgical fusion. RAD/Chest PA and Lateral IMPRESSION: No radiographic evidence of acute cardiopulmonary disease. Electronically Signed: Nhan Jacobsen DO at 23:02 EDT Reading Location ID and State: [facility] / [place] Tel [phone], Service support ,
== END | disposition home or self-care (01) ==
PROVIDERS: PCP Family Medicine; Visit Provider Family Medicine
DX: R05.9 Cough, unspecified (principal)
CPT/HCPCS: 71046

== ENCOUNTER → 2023-01-06 | Outpatient (CLI) | payer MEDICARE, SELFPAY ==
--- NOTE | 2023-01-06 12:17 | US_ITS ---
INDICATION: RENAL CYSTS EXAMINATION: Ultrasound US Kidney(s) complete (eg, kidneys and bladder) COMPARISON: Abdomen pelvis CT 03/26/2022. FINDINGS: 78 grayscale ultrasound images of the kidneys and urinary bladder. KIDNEYS: Bilateral kidneys without shadowing nephrolith or hydronephrosis.] Numerous small bilateral anechoic renal lesions with increased through transmission measuring up to 1.2 cm on the left and 1.0 cm on the right. URINARY BLADDER:?Adequately distended urinary bladder is without obvious abnormality, 84 cc volume. Bilateral ureteral jets are identified. No significant free fluid. US/Kidney and Bladder IMPRESSION: Small bilateral renal cysts. Electronically Signed: Jac Brooks MD at 6:18 EDT ,
== END | disposition home or self-care (01) ==
LOC: US 12:15
PROVIDERS: PCP Family Medicine; Referring Provider Internal Medicine Nephrology; Visit Provider Internal Medicine Nephrology
DX: Q61.02 Congenital multiple renal cysts (principal)
CPT/HCPCS: 76770

== ENCOUNTER → 2023-01-08 | Outpatient (CLI) | payer MEDICARE, SELFPAY ==
--- NOTE | 2023-01-08 10:44 | BD_ITS ---
STUDY: DUAL ENERGY X-RAY ABSORPTIOMETRY / DXA REASON FOR EXAM: Female, 77 years old. Osteopenia TECHNIQUE: Bone Mineral Density (BMD) measurements of lumbar spine and bilateral hips were obtained. COMPARISON: Comparison is made with prior study dated May 06, 2017. FINDINGS: Lumbar Spine (L1-L4): g/cm2 (0.877) / T-score (-0.9) / Z-score (1.6) Findings are suggestive of normal bone density with a low fracture risk. Left Femur Total: g/cm2 (0.756) / T-score (-1.5) / Z-score (0.5) Left Femoral Neck: g/cm2 (0.580) / T-score (-2.4) / Z-score (-0.1) Right Femur Total: g/cm2 (0.795) / T-score (-1.2) / Z-score (0.8) Right Femoral Neck: g/cm2 (0.618) / T-score (-2.1) / Z-score (0.2) The T-Scores on the most recent prior examination were: Lumbar Spine (L1-L4): There has been improvement of bone density since the previous examination. Left Femur Total: which represents a worsening of 9.9%. Right Femur Total: which represents a worsening of 8.3%. BD/Dexa Bone Density Study IMPRESSION: The patient is considered osteopenic as outlined below according to World Ganesh Organization (WHO) criteria with a high fracture risk. There has been worsening of bone density since the previous examination. Reference Information: The T-score is the number of standard deviations above or below the standard which is normal for young adults at their peak bone mineral density. The World Health Organization (WHO) interprets the T-scores as follows: Above -1 Normal bone density Between -1 and -2.5 Osteopenia Equal to / or below -2.5 Osteoporosis As a practical clinical guideline, osteopenia may be graded as follows: Mild -1 through -1.5 Moderate -1.6 through -2.0 Severe -2.1 through -2.4 The Z-score is the number of standard deviations above or below age-matched controls. A Z-score of less than -1.5 would be considered abnormal. References: 1. NIH Osteoporosis and Related Bone Diseases www osteo.org 2. International Society for Clinical Densitometry www iscd.org 3. National Osteoporosis Foundation www nof.org Electronically Signed: Ariel Sousa MD at 12:56 EDT ,
== END | disposition home or self-care (01) ==
LOC: OPBD 10:43
PROVIDERS: PCP Family Medicine; Referring Provider Family Medicine; Visit Provider Family Medicine
DX: M81.0 Age-related osteoporosis without current pathological fracture (principal)
CPT/HCPCS: 77080

== ENCOUNTER → 2023-01-23 | Outpatient (CLI) | payer MEDICARE, SELFPAY ==
--- NOTE | 2023-01-23 10:57 | ECHOD_ITS ---
Reason For Study: EDEMA, CAD Procedure This was a 2D Doppler, Color Flow transthoracic echocardiogram. Exam performed in department. Left Ventricle Normal left ventricle. The estimated ejection fraction is 55-60 %. Right Ventricle Normal right ventricle. Normal systolic function. Atria Normal left atrium. Normal right atrium. Mitral Valve There is mild mitral annular calcification. Mild (1+) mitral valve insufficiency. Tricuspid Valve Normal tricuspid valve. Trivial tricuspid valve insufficiency. Aortic Valve Moderate focal aortic valve calcification. Mild-Moderate (1-2+) eccentric aortic valve insufficiency. Pulmonic Valve The pulmonic valve is not well visualized. Great Vessels Normal aortic root. Pericardium/Pleural No pericardial effusion. MMode/2D Measurements & Calculations LVIDd: 5.0 cm IVSd: 1.0 cm Ao root diam: 3.2 cm LVIDs: 3.7 cm LVPWd: 0.88 cm RVDd: 2.9 cm FS: 26.8 % LAV(MOD-bp): 70.2 ml EDV(MOD-sp4): 94.8 ml EDV(MOD-sp2): 74.3 ml LAV(MOD-bp) Indexed: 41.1 ml/m2 ESV(MOD-sp4): 41.0 ml ESV(MOD-sp2): 36.1 ml LAV(MOD-sp2): 62.9 ml EF(MOD-sp4): 56.8 % EF(MOD-sp2): 51.4 % LAV(MOD-sp4): 63.9 ml SV(MOD-sp4): 53.8 ml SV(MOD-sp2): 38.2 ml LA dimension(2D): 3.6 cm RA A4 area: 15.2 cm2 Time Measurements MV dec time: 0.36 sec Doppler Measurements & Calculations MV E max henry: 60.0 cm/sec Lat Peak E' Henry: 3.4 cm/sec Med Peak E' Henry: 5.6 cm/sec MV A max henry: 74.1 cm/sec E/E' lat: 17.9 E/E' med: 10.7 MV E/A: 0.81 MV V2 max: 79.1 cm/sec MV dec slope: 166.6 cm/sec2 Ao V2 max: 133.6 cm/sec MV max P.5 mmHg Ao max P.1 mmHg MV V2 mean: 44.8 cm/sec Ao V2 mean: 92.5 cm/sec MV mean P.91 mmHg Ao mean P.9 mmHg MV V2 VTI: 34.9 cm Ao V2 VTI: 35.6 cm AV (velocity ratio): 0.64 AI max henry: 495.8 cm/sec LV V1 max: 93.6 cm/sec MR max henry: 516.2 cm/sec AI max P.3 mmHg LV V1 max P.5 mmHg MR max P.6 mmHg AI dec slope: 203.1 cm/sec2 LV V1 mean P.8 mmHg MR mean henry: 449.6 cm/sec AI P1/2t: 715.1 msec LV V1 mean: 61.9 cm/sec MR mean P.5 mmHg LV V1 VTI: 22.7 cm MR VTI: 222.4 cm PA V2 max: 80.9 cm/sec TR max henry: 280.2 cm/sec TR max P.4 mmHg ECHO/Echo Complete Interpretation Summary The estimated ejection fraction is 55-60 %. No previous study to compare Ordering Physician: Luís Rodriguez Referring Physician: Luís Rodriguez Performed By: Kathy Arias, MARQUIS, RVT
== END | disposition home or self-care (01) ==
LOC: CVS 10:55
PROVIDERS: PCP Family Medicine; Visit Provider Family Medicine
DX: I51.9 Heart disease, unspecified (principal)
CPT/HCPCS: 93306

== ENCOUNTER → 2023-03-05 | Outpatient (CLI) | payer MEDICARE, SELFPAY ==
--- NOTE | 2023-03-05 10:25 | RAD_ITS ---
STUDY: X-RAY - PELVIS AND RIGHT HIP REASON FOR EXAM: Female, 77 years old. Pain. TECHNIQUE: 3 views of the pelvis and hip. COMPARISON: October 2018. FINDINGS: There is a non-specific bowel gas pattern. New pessary. Osteopenia. Posterior fusion with laminectomy of the lower lumbosacral spine since the prior study. Mild arthrosis of both sacroiliac joints and the symphysis pubis. Mild arthrosis of both hips. RAD/HIP, UNI W/ Pelvis 2-3 Views IMPRESSION: Osteopenia with new postsurgical changes. Mild arthrosis of the sacroiliac joints, symphysis pubis and both hips. Electronically Signed: Saravanan Ramesh MD at 13:15 EDT ,
== END | disposition home or self-care (01) ==
LOC: RAD 10:05
PROVIDERS: PCP Family Medicine; Referring Provider Family Medicine; Visit Provider Family Medicine
DX: M25.551 Pain in right hip (principal)
CPT/HCPCS: 73502

== ENCOUNTER → 2023-06-09 | Outpatient (CLI) | payer MEDICARE, SELFPAY ==
[2023-06-09 10:40] LABS: Absolute Lymphocyte Count 1.96 X10^3/uL (0.83-4.51); Absolute Neutrophil Count 3.3 X10^3/uL (2.0-7.7); Basophil# 0.04 X10^3/uL; Basophil% 0.6 % (0-1); Eosinophil# 0.46 X10^3/uL; Hemoglobin 10.9 g/dL (12.0-15.0); Lymphocyte # 1.96 X10^3/ul (0.83-4.51); Lymphocyte % 29.7 % (19-41); Mean Corp Hgb Conc 31.1 g/dL (32-36); Mean Corpuscular Hgb 29.5 pg (27.0-32.0); Mean Corpuscular Volume 94.6 fL (81-99); Mean Platelet Vol. 10.9 fl (6.2-12.0); Monocyte# 0.85 X10^3/uL; Monocyte% 12.9 % (0-10); NRBC Flagged by Analyzer 0 % (0-5); Neutrophil # 3.29 X10^3/uL (2.7-7.7); Neutrophil % 49.6 % (47-70); Platelet Count 257 K/mm3 (150-450); RBC Distribution Width CV 12.7 % (11.6-14.6); White Blood Count 6.6 K/mm3 (4.4-11.0)
[2023-06-09 11:21] LABS: Albumin, Serum 4.1 g/dL (3.2-5.0); BUN 46 mg/dL (7-18); BUN/Creat Ratio 18.5 RATIO (10-20); Calcium,Total 9.9 mg/dL (8.5-10.1); Chloride 105 mmol/L (98-107); Creatinine, Serum 2.48 mg/dL (0.55-1.02); EST Glomerular Filtration Rate 20 mL/min (>60); Est Glom Filt Rate - Afr Amer 24 mL/min (>60); Glucose 91 mg/dL (74-106); Phosphorus 4.1 mg/dL (2.5-4.9); Potassium 4.4 mmol/L (3.5-5.1); Sodium Level 138 mmol/L (136-145)
[2023-06-09 14:57] LABS: PTHIN 145.2 pg/mL (18.4-80.1)
== END | disposition home or self-care (01) ==
LOC: LAB 10:21
PROVIDERS: PCP Family Medicine; Referring Provider Internal Medicine Nephrology; Visit Provider Internal Medicine Nephrology
DX: N18.4 Chronic kidney disease, stage 4 (severe) (principal)
CPT/HCPCS: 36415; 80069; 83970; 85025

== ENCOUNTER → 2023-07-22 | Outpatient (CLI) | payer MEDICARE, SELFPAY ==
--- NOTE | 2023-07-22 10:00 | MRI_ITS ---
STUDY: MRI LUMBAR SPINE WITHOUT CONTRAST REASON FOR EXAM: Female, 78 years old. Back pain radiating into legs. TECHNIQUE: Standardized fat and water weighted pulse sequences were obtained in the sagittal and axial planes. COMPARISON: Lumbar spine radiographs 07/02/2023. CT abdomen and pelvis without contrast 04/05/2021. FINDINGS: T10-T11: (Sagittal only). Normal endplates. Normal disc height and morphology. No ventral extradural defect. Normal central canal and bilateral intervertebral neural foramina. T11-T12: (Sagittal only). Normal endplates. Normal disc height. Prominent midline ventral axial defect is suspicious for small posterior midline and slightly cephalad disc protrusion. No associated spinal stenosis. Normal central canal and bilateral intervertebral neural foramina. T12-L1: (Sagittal only). Normal endplates. Normal disc height. Minimal ventral extradural defect is posterior bulging annulus. No central canal and bilateral intervertebral neural foramina. Normal lumbar lordosis. There is no substantial scoliosis. Normal conus medullaris that terminates at the T12-L1 disc space level. 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 Grade 1 degenerative retrolisthesis of L1 on L2. Pronounced disc space height narrowing. Mild bilateral degenerative facet arthropathy. Normal central canal and bilateral lateral recesses. Mild stenosis of the bilateral intervertebral neural foramina. L2-3: Normal endplates. Normal disc height. Minimal degenerative retrolisthesis of L2 on L3. Mild bilateral degenerative facet arthropathy. Normal central canal and bilateral lateral recesses. Mild stenosis of the bilateral intervertebral neural foramina. L3-4: Normal endplates. Minimal disc space height narrowing. Mild degenerative retrolisthesis of L3 on L4. Mild central canal stenosis with an AP canal diameter 10 mm. L4 pedicular screws and rods causing metallic signal distortion artifacts. Moderate stenosis of the bilateral intervertebral neural foramina. L4-5: Normal endplates. Moderate disc space height narrowing. Grade 1 degenerative anterolisthesis of L4 on L5. Pedicular screws and rods causing signal posterior artifacts. Postsurgical absence of the spinous processes and lamina. Mild central canal stenosis with an AP canal diameter 9.4 mm. Normal bilateral lateral recesses. Moderate stenosis of the right intervertebral neural foramen. Normal left intervertebral neural foramen. L5-S1: Normal endplates. Moderate disc space height narrowing. Mild degenerative anterolisthesis of L5 on S1. Capacious central canal. Postsurgical absence of the L5 spinous processes and lamina. Normal bilateral lateral recesses. Pedicular screws and rods causing signal distortion artifacts. Mild stenosis of the bilateral intervertebral neural foramina. Normal visualized sacral ala. Normal visualized paraspinous soft tissue structures. MRI/Spine Lumbar (Routine) IMPRESSION: 1. Moderate stenosis of the right L4-L5 intervertebral neural foramen, grade 1 degenerative anterolisthesis of L4 on L5 and mild central canal stenosis with an AP canal diameter of 5.4 mm despite postsurgical absence of the spinous processes and lamina. 2. Mild degenerative anterolisthesis of L5 on S1 and mild stenosis of the bilateral intervertebral neural foramina. 3. Mild degenerative retrolisthesis of L3 on on L4, mild central canal stenosis with an AP canal diameter 10 mm and moderate stenosis of the bilateral intervertebral neural foramina. 4. Minimal degenerative retrolisthesis of L2 on L3 and mild stenosis of the bilateral intervertebral neural foramina. 5. Grade 1 degenerative retrolisthesis of L1 on L2 and mild stenosis of the bilateral intervertebral neural foramina. 6. Prominent T11-T12 midline ventral extradural defect is suspicious for small posterior midline and slightly cephalad disc protrusion. No associated spinal stenosis or nerve root displacement. This is of questionable clinical significance. Electronically Signed: Nick Braxton MD at 15:22 EDT ,
== END | disposition home or self-care (01) ==
PROVIDERS: PCP Family Medicine; Referring Provider Physician Assistant; Visit Provider Physician Assistant
DX: M54.50 Low back pain, unspecified (principal)
CPT/HCPCS: 72148

== ENCOUNTER → 2023-10-07 | Outpatient (CLI) | payer MEDICARE, SELFPAY ==
[2023-10-07 12:32] LABS: Absolute Lymphocyte Count 1.47 X10^3/uL (0.83-4.51); Absolute Neutrophil Count 3.7 X10^3/uL (2.0-7.7); Basophil# 0.04 X10^3/uL; Basophil% 0.6 % (0-1); Eosinophils% 4.8 % (0-5); Hematocrit 33.9 % (37-47); Hemoglobin 10.5 g/dL (12.0-15.0); Lymphocyte # 1.47 X10^3/ul (0.83-4.51); Lymphocyte % 23.6 % (19-41); Mean Corpuscular Hgb 29.5 pg (27.0-32.0); Mean Corpuscular Volume 95.2 fL (81-99); Mean Platelet Vol. 11.3 fl (6.2-12.0); Monocyte# 0.71 X10^3/uL; Monocyte% 11.4 % (0-10); NRBC Flagged by Analyzer 0 % (0-5); Neutrophil # 3.69 X10^3/uL (2.7-7.7); Neutrophil % 59.3 % (47-70); Platelet Count 228 K/mm3 (150-450); RBC Distribution Width CV 12.5 % (11.6-14.6); RBC Distribution Width SD 43.4 fl (35.1-43.9); Red Blood Count 3.56 M/mm3 (4.2-5.4); White Blood Count 6.2 K/mm3 (4.4-11.0)
[2023-10-07 12:57] LABS: PTHIN 93.4 pg/mL (18.4-80.1)
[2023-10-07 13:20] LABS: Albumin, Serum 3.8 g/dL (3.2-5.0); BUN 41 mg/dL (7-18); BUN/Creat Ratio 16.4 RATIO (10-20); Chloride 105 mmol/L (98-107); EST Glomerular Filtration Rate 20 mL/min (>60); Est Glom Filt Rate - Afr Amer 24 mL/min (>60); Glucose 87 mg/dL (74-106); Phosphorus 3.8 mg/dL (2.5-4.9); Potassium 3.7 mmol/L (3.5-5.1); Protein:Creat Ratio 167 mg/g CRE (0-200); Sodium Level 138 mmol/L (136-145)
== END | disposition home or self-care (01) ==
LOC: LAB 11:20
PROVIDERS: PCP Family Medicine; Referring Provider Internal Medicine Nephrology; Visit Provider Internal Medicine Nephrology
DX: N18.4 Chronic kidney disease, stage 4 (severe) (principal)
CPT/HCPCS: 36415; 80069; 82570; 83970; 84156; 85025

== ENCOUNTER → 2024-02-04 | Outpatient (CLI) | payer MEDICARE, SELFPAY | END | disposition home or self-care (01) | LOC: LABSPEC 14:01 | PROVIDERS: PCP Family Medicine; Referring Provider Internal Medicine Gastroenterology; Visit Provider Internal Medicine Gastroenterology | DX: Z00.00 Encounter for general adult medical examination without abnormal findings (principal); Z80.0 Family history of malignant neoplasm of digestive organs | CPT/HCPCS: 82274 ==

== ENCOUNTER → 2024-04-06 | Outpatient (CLI) | payer MEDICARE, SELFPAY ==
--- NOTE | 2024-04-06 12:26 | US_ITS ---
STUDY: RENAL ULTRASOUND - COMPLETE REASON FOR EXAM: Female, 78 years old. CYST OF KIDNEY TECHNIQUE: Ultrasound evaluation of the kidneys was performed with real-time and static villaseñor-scale imaging. COMPARISON: 01/06/2023 FINDINGS: RIGHT KIDNEY: Normal location of the right kidney, which is normal in size. The right kidney measures 9.1 cm. Increased echogenicity of the renal cortex consistent with advanced age. The renal cortex measures 0.9 cm. Multiple small renal cysts with the largest measuring 2 cm in the parapelvic right kidney. There are no right renal calculi. There is no right hydronephrosis. DISTAL RIGHT URETER: There is non-visualization of the distal right ureter. There is no demonstrated right ureterovesical junction calculus. There is a visualized right ureteral jet. LEFT KIDNEY: Normal location of the left kidney, which is normal in size. The left kidney measures 9.6 cm. Increased echogenicity of the renal cortex consistent with advanced age. The renal cortex measures 1.1 cm. Multiple small renal cysts with the largest measuring 1.8 cm. There are no left renal calculi. There is no left hydronephrosis. DISTAL LEFT URETER: There is non-visualization of the distal left ureter. There is no demonstrated left ureterovesical junction calculus. There is a visualized left ureteral jet. BLADDER: The distended urinary bladder has a volume of 69 ml. The empty urinary bladder has a volume of ml. There is a normal wall thickness of the distended urinary bladder. There is no demonstrated mass within the urinary bladder. There are no demonstrated bladder calculi. US/Kidney and Bladder IMPRESSION: 1. No hydronephrosis to suggest obstruction. 2. Multiple small bilateral renal cysts. Electronically Signed: Jorje rAellano MD at 14:11 EDT ,
== END | disposition home or self-care (01) ==
LOC: US 12:24
PROVIDERS: PCP Family Medicine; Referring Provider Internal Medicine Nephrology; Visit Provider Internal Medicine Nephrology
DX: N28.1 Cyst of kidney, acquired (principal)
CPT/HCPCS: 76770

== ENCOUNTER → 2024-04-11 | Outpatient (CLI) | payer MEDICARE, SELFPAY ==
[2024-04-11 12:08] LABS: Absolute Lymphocyte Count 1.77 X10^3/uL (0.83-4.51); Absolute Neutrophil Count 3.9 X10^3/uL (2.0-7.7); Basophil# 0.05 X10^3/uL; Basophil% 0.7 % (0-1); Eosinophil# 0.24 X10^3/uL; Eosinophils% 3.5 % (0-5); Hemoglobin 10.4 g/dL (12.0-15.0); Lymphocyte # 1.77 X10^3/ul (0.83-4.51); Mean Corp Hgb Conc 31.5 g/dL (32-36); Mean Corpuscular Hgb 30.1 pg (27.0-32.0); Mean Corpuscular Volume 95.7 fL (81-99); Mean Platelet Vol. 11.1 fl (6.2-12.0); Monocyte% 11.7 % (0-10); NRBC Flagged by Analyzer 0 % (0-5); Neutrophil # 3.93 X10^3/uL (2.7-7.7); Neutrophil % 57.8 % (47-70); Platelet Count 225 K/mm3 (150-450); RBC Distribution Width CV 12.4 % (11.6-14.6); RBC Distribution Width SD 42.9 fl (35.1-43.9); Red Blood Count 3.45 M/mm3 (4.2-5.4); White Blood Count 6.8 K/mm3 (4.4-11.0)
[2024-04-11 12:18] LABS: Protein, Urine (Random) 16.2 mg/dL (<11.9); Protein:Creat Ratio 208 mg/g CRE (0-200)
[2024-04-11 12:45] LABS: Albumin, Serum 3.9 g/dL (3.2-5.0); BUN 43 mg/dL (7-18); BUN/Creat Ratio 18.7 RATIO (10-20); Calcium,Total 9.9 mg/dL (8.5-10.1); Chloride 106 mmol/L (98-107); EST Glomerular Filtration Rate 22 mL/min (>60); Est Glom Filt Rate - Afr Amer 26 mL/min (>60); Ferritin 56 ng/mL (8-252); Glucose 92 mg/dL (74-106); Iron 75 ug/dL (50-170); Iron Binding Capacity,Total 325 ug/dL (250-450); PERCENT IRON SATURATION 23.1 % (15.0-55.0); Phosphorus 4.1 mg/dL (2.5-4.9); Potassium 4.4 mmol/L (3.5-5.1); Sodium Level 139 mmol/L (136-145)
== END | disposition home or self-care (01) ==
LOC: LAB 11:36
PROVIDERS: PCP Family Medicine; Visit Provider Internal Medicine Nephrology
DX: N18.4 Chronic kidney disease, stage 4 (severe) (principal)
CPT/HCPCS: 36415; 80069; 82570; 82728; 83540; 83550; 84156; 85025

== ENCOUNTER → 2024-08-22 | Outpatient (CLI) | payer MEDICARE, SELFPAY ==
[2024-08-22 10:30] LABS: Absolute Lymphocyte Count 2.16 X10^3/uL (0.83-4.51); Absolute Neutrophil Count 4.5 X10^3/uL (2.0-7.7); Basophil# 0.05 X10^3/uL; Basophil% 0.6 % (0-1); Eosinophil# 0.19 X10^3/uL; Eosinophils% 2.4 % (0-5); Hematocrit 33.1 % (37-47); Hemoglobin 10.4 g/dL (12.0-15.0); Lymphocyte # 2.16 X10^3/ul (0.83-4.51); Lymphocyte % 27.6 % (19-41); Mean Corp Hgb Conc 31.4 g/dL (32-36); Mean Corpuscular Hgb 30.4 pg (27.0-32.0); Mean Corpuscular Volume 96.8 fL (81-99); Mean Platelet Vol. 10.7 fl (6.2-12.0); Monocyte# 0.87 X10^3/uL; Monocyte% 11.1 % (0-10); NRBC Flagged by Analyzer 0 % (0-5); Neutrophil # 4.54 X10^3/uL (2.7-7.7); Neutrophil % 57.9 % (47-70); Platelet Count 233 K/mm3 (150-450); RBC Distribution Width CV 11.9 % (11.6-14.6); RBC Distribution Width SD 41.9 fl (35.1-43.9); Red Blood Count 3.42 M/mm3 (4.2-5.4); White Blood Count 7.8 K/mm3 (4.4-11.0)
[2024-08-22 10:42] LABS: Protein:Creat Ratio 278 mg/g CRE (0-200)
[2024-08-22 10:55] LABS: Albumin, Serum 3.9 g/dL (3.2-5.0); BUN 45 mg/dL (7-18); BUN/Creat Ratio 17.6 RATIO (10-20); Chloride 107 mmol/L (98-107); Creatinine, Serum 2.56 mg/dL (0.55-1.02); EST Glomerular Filtration Rate 19 mL/min (>60); Est Glom Filt Rate - Afr Amer 23 mL/min (>60); Glucose 97 mg/dL (74-106); Magnesium 2.3 mg/dL (1.6-2.6); PTHIN 109.6 pg/mL (18.4-80.1); Phosphorus 4.3 mg/dL (2.5-4.9); Potassium 4.1 mmol/L (3.5-5.1); Sodium Level 138 mmol/L (136-145)
== END | disposition home or self-care (01) ==
LOC: LAB 10:12
PROVIDERS: PCP Family Medicine; Referring Provider Internal Medicine Nephrology; Visit Provider Internal Medicine Nephrology
DX: N18.4 Chronic kidney disease, stage 4 (severe) (principal)
CPT/HCPCS: 36415; 80069; 82570; 83735; 83970; 84156; 85025

== ENCOUNTER → 2024-08-31 | Outpatient (CLI) | payer MEDICARE, SELFPAY ==
--- NOTE | 2024-08-31 11:16 | US_ITS ---
EXAM: US SOFT TISSUES HEAD AND NECK, THYROID CLINICAL INDICATION: SINGLE NODULE TECHNIQUE: Carrion scale and color doppler imaging was performed of the thyroid gland. COMPARISON: No relevant prior studies available. FINDINGS: LEFT THYROID LOBE: Left thyroid lobe measures 3.7 x 1.6 x 1.4 cm. Heterogeneous echotexture. 10 mm nodule within the superior pole of the left thyroid lobe. This nodule is mixed cystic and solid, hyperechoic or isoechoic, [id number], is lobulated or irregular and contains no echogenic foci. TI-RADS points: 4. TI-RADS category: TR4. This nodule is moderately suspicious. Recommend follow-up thyroid ultrasounds at 1 year. Additional small colloid cyst within the left thyroid lobe. RIGHT THYROID LOBE: Right thyroid lobe measures 4.2 x 1.3 x 1.3 cm. Several subcentimeter colloid cysts noted within the right thyroid lobe. No evidence of a discrete solid nodule. Homogeneous echotexture with normal vascularity. ISTHMUS: Normal. No thyroid nodules are present. US/Thyroid IMPRESSION: 1 cm left thyroid nodule with TR score of 4. Follow-up recommended in one year. Electronically Signed: Trenton Pedroza MD at 11:36 EST ,
[2024-08-31 12:52] LABS: T3 Total - Triiodothyronine 1.09 ng/mL (0.6-1.81)
[2024-08-31 12:57] LABS: T4 Free Direct 0.94 ng/dL (0.76-1.46)
== END | disposition home or self-care (01) ==
PROVIDERS: PCP Family Medicine; Referring Provider Internal Medicine Nephrology; Visit Provider Internal Medicine Nephrology
DX: E04.1 Nontoxic single thyroid nodule (principal)
CPT/HCPCS: 36415; 76536; 84439; 84443; 84480

== ENCOUNTER → 2024-10-14 | Outpatient (CLI) | payer MEDICARE, SELFPAY | END | disposition home or self-care (01) | LOC: LAB 14:28 → LABSPEC 14:29 | PROVIDERS: PCP Family Medicine; Referring Provider Internal Medicine Gastroenterology; Visit Provider Internal Medicine Gastroenterology | DX: D64.9 Anemia, unspecified (principal) | CPT/HCPCS: 36415; 82274 ==

== ENCOUNTER → 2024-11-14 | Outpatient (CLI) | payer MEDICARE, SELFPAY ==
[2024-11-14 11:44] LABS: Absolute Neutrophil Count 3.3 X10^3/uL (2.0-7.7); Basophil# 0.04 X10^3/uL; Basophil% 0.7 % (0-1); Eosinophil# 0.18 X10^3/uL; Hematocrit 30.4 % (37-47); Hemoglobin 9.6 g/dL (12.0-15.0); Lymphocyte % 28.3 % (19-41); Mean Corp Hgb Conc 31.6 g/dL (32-36); Mean Corpuscular Hgb 29.9 pg (27.0-32.0); Mean Corpuscular Volume 94.7 fL (81-99); Mean Platelet Vol. 10.8 fl (6.2-12.0); Monocyte# 0.73 X10^3/uL; Monocyte% 12.2 % (0-10); NRBC Flagged by Analyzer 0 % (0-5); Neutrophil # 3.32 X10^3/uL (2.7-7.7); Neutrophil % 55.3 % (47-70); Platelet Count 197 K/mm3 (150-450); RBC Distribution Width SD 41.5 fl (35.1-43.9); Red Blood Count 3.21 M/mm3 (4.2-5.4)
[2024-11-14 12:06] LABS: PTHIN 132.1 pg/mL (18.4-80.1)
[2024-11-14 12:08] LABS: Albumin, Serum 3.8 g/dL (3.2-5.0); BUN 40 mg/dL (7-18); BUN/Creat Ratio 14.5 RATIO (10-20); Calcium,Total 10.4 mg/dL (8.5-10.1); Chloride 106 mmol/L (98-107); Creatinine, Serum 2.75 mg/dL (0.55-1.02); EST Glomerular Filtration Rate 18 mL/min (>60); Est Glom Filt Rate - Afr Amer 21 mL/min (>60); Glucose 90 mg/dL (74-106); Phosphorus 3.9 mg/dL (2.5-4.9); Potassium 3.9 mmol/L (3.5-5.1); Sodium Level 139 mmol/L (136-145)
== END | disposition home or self-care (01) ==
LOC: LAB 11:19
PROVIDERS: PCP Family Medicine; Referring Provider Internal Medicine Nephrology; Visit Provider Internal Medicine Nephrology
DX: N18.4 Chronic kidney disease, stage 4 (severe) (principal)
CPT/HCPCS: 36415; 80069; 83970; 85025

== ENCOUNTER → 2025-01-03 | Outpatient (CLI) | payer MEDICARE, SELFPAY ==
[2025-01-03 11:14] LABS: Absolute Lymphocyte Count 1.84 X10^3/uL (0.83-4.51); Absolute Neutrophil Count 4.2 X10^3/uL (2.0-7.7); Basophil# 0.04 X10^3/uL; Basophil% 0.6 % (0-1); Eosinophils% 2.8 % (0-5); Hematocrit 30.3 % (37-47); Hemoglobin 9.6 g/dL (12.0-15.0); Lymphocyte # 1.84 X10^3/ul (0.83-4.51); Lymphocyte % 26.1 % (19-41); Mean Corp Hgb Conc 31.7 g/dL (32-36); Mean Corpuscular Hgb 29.5 pg (27.0-32.0); Mean Corpuscular Volume 93.2 fL (81-99); Mean Platelet Vol. 10.7 fl (6.2-12.0); Monocyte# 0.75 X10^3/uL; Monocyte% 10.6 % (0-10); NRBC Flagged by Analyzer 0 % (0-5); Neutrophil # 4.21 X10^3/uL (2.7-7.7); Neutrophil % 59.8 % (47-70); Platelet Count 209 K/mm3 (150-450); RBC Distribution Width CV 12.3 % (11.6-14.6); RBC Distribution Width SD 42.2 fl (35.1-43.9); Red Blood Count 3.25 M/mm3 (4.2-5.4); White Blood Count 7.1 K/mm3 (4.4-11.0)
[2025-01-03 11:44] LABS: PTHIN 132 pg/mL (11-61)
[2025-01-03 13:03] LABS: Albumin, Serum 4.4 g/dL (3.4-4.8); Anion Gap 13 (5-15); BUN 43 mg/dL (4-19); BUN/Creat Ratio 16.5 RATIO (10-20); Carbon Dioxide 22.6 mmol/L (21.0-32.0); Chloride 107 mmol/L (98-108); Creatinine, Serum 2.61 mg/dL (0.70-1.20); EST Glomerular Filtration Rate 18 (>60); Ferritin 108 ng/mL (22-378); Glucose 83 mg/dL (70-99); Iron 55 ug/dL (50-170); Iron Binding Capacity,Total 281 ug/dL (250-450); Iron Binding Capacity,Unsat 226 ug/dL (228-428); Magnesium 2.3 mg/dL (1.5-2.2); Phosphorus 4.4 mg/dL (2.7-4.5); Potassium 4.1 mmol/L (3.3-5.1); Sodium Level 142 mmol/L (133-145)
== END | disposition home or self-care (01) ==
LOC: LAB 10:57
PROVIDERS: PCP Family Medicine; Referring Provider Internal Medicine Nephrology; Visit Provider Internal Medicine Nephrology
DX: N18.4 Chronic kidney disease, stage 4 (severe) (principal); D63.1 Anemia in chronic kidney disease
CPT/HCPCS: 36415; 80069; 82728; 83540; 83550; 83735; 83970; 85025

== ENCOUNTER → 2025-07-24 | Outpatient (CLI) | payer MEDICARE, SELFPAY ==
--- OUTSIDE RECORDS SUMMARY | 2025-07-24 11:48 | XMS RPT_ITS | CCD ---
Author Organization [facility] Care Team Providers Care Evp Name Role Phone Dr. Luís Rodriguez Primary Care Provider Dr. Luís Rodriguez Referring Provider CORINNE Hobson Attending Provider Dr. Robb Leyva Attending Provider [phone] Dr. Luís Rodriguez Primary Care Provider [phone] Dr. Luís Rodriguez Referring Provider [phone] Luís Rodriguez Primary Care Provider [phone] Dr. Luís Rodriguez Referring Provider [phone] Dr. Robb Leyva Attending Provider [phone] CORINNE Austin Attending Provider CORINNE Deng Attending Provider Dr. Luís Rodriguez Attending Provider Dr. Luís Rodriguez Primary Care Provider [phone] Dr. Luís Rodriguez Attending Provider [phone] Dr. Luís Rodriguez Referring Provider Dr. Robb Leyva Attending Provider [phone] Luís Rodriguez Primary Care Provider [phone] Dr. Luís Rodriguez Attending Provider [phone] Dr. Luís Rodriguez Referring Provider Dr. Arnie Ruth Attending Provider Dr. Luís Rodriguez Primary Care Provider [phone] Dr. Luís Rodriguez Attending Provider [phone] Dr. Luís Rodriguez Referring Provider [phone] Dr. Robb Leyva Attending Provider [phone] Dr. Luís Rodriguez Primary Care Provider [phone] Dr. Luís Rodriguez Attending Provider [phone] Dr. Luís Rodriguez Referring Provider Gianni SUN, PA Erasmo Attending Provider CORINNE Deng Attending Provider Dr. Luís Rodriguez Primary Care Provider [phone] Dr. Luís Rodriguez Attending Provider Dr. Luís Rodriguez Referring Provider Gianni SUN, CORINNE Zimmerman Attending Provider CORINNE Deng Attending Provider Lisa SUN, PA Lukas Attending Provider [phone] Dr. Mu Peraza Attending Provider Dr. Carlos A Iniguez Attending Provider [phone] Dr. Luís Rodriguez Primary Care Provider [phone] Dr. Luís Rodriguez Referring Provider [phone] Dr. Carlos A Iniguez Attending Provider [phone] Dr. Robb Leyva Attending Provider [phone] Dr. Luís Rodriguez DO Primary Care Provider Dr. Robb Leyva DO Attending Provider Dr. Robb Leyva DO Referring Provider Dr. Michel Woodall MD Attending Provider [phone] Dr. Michel Woodall MD Referring Provider [phone] Dr. Luís Rodriguez DO Primary Care Provider [phone] Dr. Luís Rodriguez DO Referring Provider [phone] Dr. Lars Vizcaino MD Attending Provider Dr. Luís Rodriguez DO Attending Provider [phone] Michel Woodall Attending Unavailable Brown, Luís R Primary Care Unavailable Michel Woodall Referring Unavailable Friend, Robb Attending Unavailable Friend, Robb Referring Unavailable Brown, Luís R Primary Care Unavailable Brown, Luís R Primary Care Unavailable Jewel Hopkins Attending Unavailable Brown, Luís R Referring Unavailable Brown, Luís R Primary Care Unavailable Michel Woodall Attending Unavailable Brown, Luís R Primary Care Unavailable Michel Woodall Referring Unavailable Talisha, Michel Attending Unavailable Brown, Luís R Primary Care Unavailable Talisha, Michel Referring Unavailable Talisha, Michel Attending Unavailable Brown, Luís R Primary Care Unavailable Michel Woodall Attending Unavailable Michel Woodall Referring Unavailable Lars Vizcaino Attending Unavailable Brown, Luís R Referring Unavailable Brown, Luís R Primary Care Unavailable Brown, Luís R Attending Unavailable Brown, Luís R Referring Unavailable Brown, Luís R Primary Care Unavailable Brown, Luís R Primary Care Unavailable Brown, Luís R Attending Unavailable Brown, Luís R Referring Unavailable Michel Woodall Attending Unavailable Brown, Luís R Primary Care Unavailable Michel Woodall Referring Unavailable Allergies Allergy Classification Reported Allergen(s) Allergy Type Date of Onset Reaction(s) Facility (20 sources) amLODIPine; Translations: [amlodipine besylate] Drug Allergy 01-24-2022 Swelling [facility] (20 sources) Clindamycin Drug Allergy 01-24-2022 Rash [facility] (20 sources) Codeine Drug Allergy 01-24-2022 Vomiting [facility] (20 sources) Meperidine; Translations: [meperidine HCl] Drug Allergy 01-24-2022 Vomiting [facility] (1 source) Clindamycin Drug Allergy 03-01-2025 [facility] (1 source) Codeine Drug Allergy 03-01-2025 [facility] Medications Current Medications Medication Drug Class(es) Dates Sig (Normalized) Sig (Original) acetaminophen 500 mg oral tablet (20 sources) Start: 04-12-2019 take 1 tablet by mouth every four hours Acetaminophen (Tylenol Extra Strength) 500 mg tablet Active 500 mg PO Q4H April 12, 2019 12:00am bifidobacterium infantis 4 mg oral capsule (11 sources) Start: 01-01-2023 take 1 capsule by mouth once daily Bifidobacterium Infantis (Align) 4 mg capsule Active 4 mg PO DAILY January 01, 2023 12:00am calcium citrate 950 mg oral tablet (20 sources) Start: 02-23-2025 take 1 tablet by mouth twice daily Calcium Citrate 200 mg (950 mg) tablet Active 200 mg PO TWICE A DAY February 23, 2025 12:00am Start: 04-10-2021 End: 02-23-2025 take 1 tablet by mouth once daily Calcium Citrate 200 mg (950 mg) tablet Discontinued 200 mg PO DAILY April 10, 2021 12:00am February 23, 2025 2:41pm cholecalciferol 0.05 mg oral capsule (20 sources) Vitamin D Start: 01-17-2021 take 1 capsule by mouth once daily Cholecalciferol (Vitamin D3) 50 mcg (2,000 unit) capsule Active 50 ug PO DAILY January 17, 2021 12:00am doxazosin 4 mg oral tablet (10 sources) alpha-Adrener gic Liz Start: 02-23-2025 take 1 tablet by mouth once daily in the evening Doxazosin 4 mg tablet Active 4 mg PO EVERY EVENING February 23, 2025 12:00am Start: 02-03-2024 End: 02-23-2025 take 1 tablet by mouth once daily Doxazosin 2 mg tablet Discontinued 2 mg PO DAILY February 03, 2024 12:00am February 23, 2025 2:38pm Start: 07-02-2023 End: 02-03-2024 Doxazosin 4 mg tablet Discon tinued mg PO July 02, 2023 12:00am February 03, 2024 3:05pm Start: 07-02-2023 End: 02-03-2024 Doxazosin Discontinued MG PO July 02, 2023 12:00am February 03, 2024 3:05pm febuxostat 40 mg oral tablet (20 sources) Xanthine Oxidase Inhibitor Start: 04-22-2018 End: 02-28-2025 take 1 tablet by mouth once daily Febuxostat (Uloric) 40 mg tablet Active 40 mg PO daily 90 February 28, 2025 11:41am furosemide 40 mg oral tablet (20 sources) Loop Diuretic Start: 02-11-2024 Furosemide 40 mg tablet Active mg PO May 9th, 2024 12:00am Start: 01-17-2021 End: 03-03-2023 Furosemide 40 mg tablet Disc ontinued 60 mg PO DAILY January 17, 2021 12:00am March 03, 2023 9:34am Start: 01-17-2021 End: 03-03-2023 take 60 mg by mouth once daily Furosemide Discontinued 60 MG PO DAILY January 17, 2021 12:00am March 03, 2023 9:34am Start: 04-26-2019 End: 01-17-2021 take 3 tablets by mouth once daily Furosemide (Lasix) 20 mg tablet Discontinued 60 mg PO DAILY April 26, 2019 12:00am January 17, 2021 10:38am latanoprost 0.05 mg/ml / netarsudil 0.2 mg/ml ophthalmic solution (1 source) Prostaglandin Analog, Rho Kinase Inhibitor Start: 02-23-2025 Netarsudil-Latanoprost (Rocklatan) 0.02-0.005 % drops Active 1 NMA OPHTHALMIC EVERY EVENING February 23, 2025 12:00am lisinopril 5 mg oral tablet (20 sources) Angiotensin Converting Enzyme Inhibitor Start: 04-22-2018 take 5 mg by mouth once daily Lisinopril Active 5 MG PO daily April 22, 2018 11:41am Start: 04-22-2018 End: 02-23-2025 take 2 tablets by mouth once daily Lisinopril 5 mg tablet Discontinued 10 mg PO daily April 22, 2018 12:00am February 23, 2025 2:38pm Start: 04-22-2018 take 10 mg by mouth once daily Lisinopril Active 10 MG PO daily April 22, 2018 12:00am vancomycin 125 mg oral capsule (20 sources) Glycopeptide Antibacterial Start: 08-10-2023 End: 02-11-2024 take 1 capsule by mouth twice daily as needed Vancomycin 125 mg capsule Active 125 mg PO TWICE A DAY as needed February 11, 2024 11:22am take 125 mg two times per day Start: 05-29-2022 End: 07-25-2022 Vancomycin 125 mg capsule Discontinued 0 PO As Directed May 29, 2022 12:00am July 25, 2022 12:42pm Take every 6 hours for two week; then every 8 hours until directed otherwise. Start: 05-16-2022 End: 05-30-2022 take 2 capsules by mouth every six hours Vancomycin 250 mg capsule Discontinued 500 mg PO EVERY 6 HOURS 112 May 16, 2022 12:00am May 29, 2022 12:00am May 30, 2022 12:05am Start: 05-16-2022 End: 05-30-2022 take 500 mg by mouth every six hours Vancomycin Discontinued 500 MG PO EVERY 6 HOURS 112 May 16, 2022 12:00am May 30, 2022 12:05am Start: 04-16-2022 End: 04-30-2022 take 1 capsule by mouth every six hours Vancomycin 125 mg capsule Discontinued 125 mg PO EVERY 6 HOURS 56 April 16, 2022 4:34pm April 29, 2022 12:00am April 30, 2022 12:03am Start: 04-16-2022 End: 04-16-2022 take 1 capsule by mouth four times daily Vancomycin 125 mg capsule Discontinued 125 mg PO EVERY 6 HOURS 56 April 16, 2022 12:00am April 29, 2022 12:00am April 16, 2022 4:35pm take 125 mg 4 times per day for 10 days; 2 times per day for 7 days; once daily for 7 days; once every 2-3 days for 2-8 weeks Completed/Discontinued Medications Medication Drug Class(es) Dates Sig (Normalized) Sig (Original) amoxicillin 500 mg oral capsule (5 sources) Penicillin-class Antibacterial Start: 07-06-2023 End: 07-20-2023 take 2 capsules by mouth twice daily Amoxicillin 500 mg capsule Discontinued 1000 mg PO TWICE A DAY 56 July 06, 2023 12:00am July 19, 2023 12:00am July 20, 2023 12:04am Start: 07-06-2023 End: 07-20-2023 take 1000 mg by mouth twice daily Amoxicillin Discontinued 1000 MG PO TWICE A DAY 56 July 06, 2023 12:00am July 20, 2023 12:04am amoxicillin 875 mg / clavulanate 125 mg oral tablet (20 sources) Penicillin-class Antibacterial Start: 05-07-2023 End: 05-17-2023 Amoxicillin-Pot Clavulanate 875-125 mg tablet Discontinued 1 {tbl} PO Q12H 20 May 07, 2023 12:00am May 16, 2023 12:00am May 17, 2023 12:03am Start: 05-07-2023 End: 05-17-2023 take 1 tablet by mouth every twelve hours Amoxicillin-Pot Clavulanate Discontinued 1 TABLET PO Q12H 20 May 07, 2023 12:00am May 17, 2023 12:03am Start: 01-07-2022 End: 01-17-2022 Amoxicillin-Pot Clavulanate 875-125 mg tablet Discontinued 1 {tbl} PO Q12H 20 January 07, 2022 12:00am January 16, 2022 12:00am January 17, 2022 12:03am Start: 01-07-2022 End: 01-17-2022 take 1 tablet by mouth every twelve hours Amoxicillin-Pot Clavulanate Discontinued 1 TABLET PO Q12H 24 07January 07, 2022 12:00am January 17, 2022 12:03am Start: 04-10-2021 End: 06-26-2021 Amoxicillin-Pot Clavulanate 875-125 mg tablet Discontinued 1 {tbl} PO TWICE A DAY April 10, 2021 12:00am June 26, 2021 2:04pm Start: 04-10-2021 End: 06-26-2021 take 1 tablet by mouth twice daily Amoxicillin-Pot Clavulanate Discontinued 1 TABLET PO TWICE A DAY April 10, 2021 12:00am June 26, 2021 2:04pm aspirin 81 mg delayed release oral tablet (20 sources) Platelet Aggregation Inhibitor, Nonsteroidal Anti-inflammatory Drug Start: 08-20-2022 End: 06-21-2024 take 1 tablet by mouth once daily Aspirin (Enteric Coated Aspirin) 81 mg tablet,delayed release (DR/EC) Discontinued 81 mg PO DAILY June 23, 2023 9:13am June 21, 2024 2:58pm 12 hr aspirin 25 mg / dipyridamole 200 mg extended release oral capsule (20 sources) Platelet Aggregation Inhibitor, Nonsteroidal Anti-inflammatory Drug Start: 01-25-2021 End: 08-20-2022 take 1 capsule by mouth twice daily Aspirin-Dipyridamol e Discontinued 1 CAP PO TWICE A DAY July 07, 2022 11:02am August 20, 2022 2:41pm Start: 04-22-2018 End: 08-20-2022 Aspirin-Dipyridamole 25-200 mg capsule, ER multiphase 12 hr Discontinued 1 NMA PO TWICE A DAY 120 July 07, 2022 11:02am August 20, 2022 2:41pm atenolol 25 mg oral tablet (20 sources) beta-Adrenergic Liz Start: 02-26-2023 End: 02-21-2025 take 1 tablet by mouth twice daily Atenolol 25 mg tablet Discontinued 25 mg PO TWICE A DAY 90 May 19, 2024 9:47am June 21, 2024 2:58pm Start: 04-22-2018 End: 02-26-2023 Atenolol 50 mg tablet Discon tinued 25 mg PO TWICE A DAY 180 October 16, 2021 12:32pm February 26, 2023 12:29pm Start: 04-22-2018 End: 02-26-2023 take 25 mg by mouth twice daily Atenolol Discontinued 25 MG PO TWICE A DAY 180 October 16, 2021 12:32pm February 26, 2023 12:29pm atropine sulfate 0.025 mg / diphenoxylate hydrochloride 2.5 mg oral tablet (18 sources) Anticholinergic, Cholinergic Muscarinic Antagonist, Antidiarrheal Start: 04-15-2022 End: 05-15-2022 Diphenoxylate-Atropine (Lomotil) 2.5-0.025 mg tablet Discontinued 1 {tbl} PO TWICE A DAY as needed for diarrhea 60 30 April 15, 2022 12:00am May 14, 2022 12:00am May 15, 2022 12:03am calcitriol 0.78056 mg oral capsule (20 sources) Vitamin D3 Analog Start: 04-22-2018 End: 02-23-2025 take 1 capsule by mouth three times weekly Calcitriol 0.25 mcg capsule Discontinued 0.25 ug PO .tiw April 22, 2018 12:00am February 23, 2025 2:41pm cephalexin 500 mg oral capsule (20 sources) Cephalosporin Antibacterial Start: 03-11-2015 End: 04-22-2018 take 1 capsule by mouth every six hours Cephalexin 500 MG capsule Discontinued 500 mg PO EVERY 6 HOURS 40 March 11, 2015 12:00am April 22, 2018 11:38am ciprofloxacin 500 mg oral tablet (19 sources) Quinolone Antimicrobial Start: 03-26-2022 End: 04-16-2022 take 1 tablet by mouth twice daily Ciprofloxacin Hcl (Cipro) 500 mg tablet Discontinued 500 mg PO TWICE A DAY March 26, 2022 12:00am April 16, 2022 9:54am Compression Socks, Medium (18 sources) Start: 03-11-2015 End: 04-22-2018 Compression Socks, Medium Discontinued 1 EACH MC DAILY March 11, 2015 4:38pm April 22, 2018 11:38am Start: 03-11-2015 End: 04-22-2018 Compression Socks, Medium Di scontinued 1 EACH MC DAILY March 10, 2015 11:00pm April 22, 2018 10:38am Start: 03-11-2015 End: 04-22-2018 Compression Socks, Medium Di scontinued 1 EACH MC DAILY March 11, 2015 12:00am April 22, 2018 11:38am Compression Socks, Medium 1 EACH misc (3 sources) Start: 03-11-2015 End: 04-22-2018 Compression Socks, Medium 1 EACH misc Discontinued 1 NMA MC DAILY March 11, 2015 12:00am April 22, 2018 11:38am famotidine 20 mg oral tablet (15 sources) Histamine-2 Receptor Antagonist Start: 07-25-2022 End: 08-20-2022 take 0.5 tablet by mouth twice daily Famotidine 20 mg tablet Discontinued 0 PO TWICE A DAY July 25, 2022 12:00am August 20, 2022 2:27pm take 1/2 tablet orally twice a day; ferrous sulfate 325 mg oral tablet (20 sources) Start: 12-27-2020 End: 01-17-2021 take 1 tablet by mouth once daily Ferrous Sulfate (Iron) 325 mg (65 mg iron) tablet Discontinued 325 mg PO DAILY December 27, 2020 12:00am January 17, 2021 10:39am gabapentin 300 mg oral capsule (20 sources) Anti-epileptic Agent Start: 04-13-2019 End: 04-26-2019 take 1 capsule by mouth twice daily Gabapentin 300 mg capsule Discontinued 300 mg PO TWICE A DAY 60 April 13, 2019 12:00am April 26, 2019 10:13am hydrOXYzine hydrochloride 25 mg oral tablet (15 sources) Antihistamine Start: 07-25-2022 End: 08-20-2022 take 0.5 tablet by mouth three to four times daily as needed Hydroxyzine Hcl 25 mg tablet Discontinued 0 PO .COMPLEX as needed for rash July 25, 2022 12:00am August 20, 2022 2:27pm 1/2 tablet orally 3-4 times daily PRN; latanoprost 0.05 mg/ml ophthalmic solution (20 sources) Prostaglandin Analog Start: 04-22-2018 End: 02-23-2025 Latanoprost 0.005 % drops Discontinued 1 NMA OPHTHALMIC EVERY EVENING April 22, 2018 12:00am February 23, 2025 2:37pm levocetirizine dihydrochloride 5 mg oral tablet (3 sources) Histamine-1 Receptor Antagonist Start: 06-21-2024 End: 02-23-2025 take 1 tablet by mouth once daily Levocetirizine (Xyzal) 5 mg tablet Discontinued 5 mg PO daily June 21, 2024 12:00am February 23, 2025 2:39pm levoFLOXacin 500 mg oral tablet (5 sources) Quinolone Antimicrobial Start: 07-06-2023 End: 07-06-2023 take 1 tablet by mouth once daily Levofloxacin 500 mg tablet Discontinued 500 mg PO DAILY July 06, 2023 12:00am July 06, 2023 2:08pm magnesium oxide 400 mg oral tablet (20 sources) Start: 01-01-2023 End: 01-03-2025 take 1 tablet by mouth once daily Magnesium Oxide (Magox) 400 mg (241.3 mg magnesium) tablet Discontinued 400 mg PO DAILY October 03, 2024 11:05am January 03, 2025 3:53pm methylPREDNISolone 4 mg oral tablet (6 sources) Corticosteroid Start: 05-13-2023 End: 07-02-2023 take 1 tablet by mouth once Methylprednisolone (Medrol (Eliot)) 4 mg tablets,dose pack Discontinued 0 PO per package directions May 13, 2023 12:00am July 02, 2023 9:13am PO PER PKG DIR metroNIDAZOLE 500 mg oral tablet (19 sources) Nitroimidazole Antimicrobial Start: 03-26-2022 End: 07-25-2022 take 1 tablet by mouth twice daily Metronidazole 500 mg tablet Discontinued 500 mg PO TWICE A DAY 24 07March 26, 2022 12:00am July 25, 2022 12:41pm naproxen sodium 220 mg oral capsule (20 sources) Nonsteroidal Anti-inflammatory Drug Start: 04-22-2018 End: 04-12-2019 take 1 capsule by mouth three times daily as needed for pain Naproxen Sodium (Aleve) 220 mg capsule Discontinued 220 mg PO THREE TIMES A DAY as needed for pain April 22, 2018 12:00am April 12, 2019 1:44pm ondansetron 8 mg disintegrating oral tablet (20 sources) Serotonin-3 Receptor Antagonist Start: 03-27-2022 End: 07-25-2022 take 1 tablet by mouth every twelve hours as needed for nausea and vomiting Ondansetron 8 mg tablet,disintegrating Discontinued 8 mg PO Q12H as needed for nausea and vomiting April 18, 2022 7:26am July 25, 2022 12:43pm polyethylene glycol 3350 00633 mg powder for oral solution (20 sources) Osmotic Laxative Start: 04-22-2018 End: 08-20-2022 Polyethylene Glycol 3350 (Miralax) 17 gram/dose powder Discontinued 17 g PO .QOD April 13, 2019 10:38am August 20, 2022 2:28pm promethazine hydrochloride 25 mg oral tablet (18 sources) Phenothiazine Start: 04-18-2022 End: 07-25-2022 take 1 tablet by mouth every six hours as needed for nausea and vomiting Promethazine 25 mg tablet Discontinued 25 mg PO EVERY 6 HOURS as needed for nausea and vomiting April 18, 2022 12:00am July 25, 2022 12:43pm rosuvastatin calcium 5 mg oral tablet (20 sources) HMG-CoA Reductase Inhibitor Start: 01-14-2018 End: 01-10-2025 take 1 tablet by mouth once daily Rosuvastatin 5 mg tablet Discontinued 5 mg PO daily October 12, 2024 11:23am January 10, 2025 8:16am torsemide 20 mg oral tablet (14 sources) Loop Diuretic Start: 03-03-2023 End: 06-21-2024 take 1 tablet by mouth once daily Torsemide 20 mg tablet Discontinued 20 mg PO DAILY August 31, 2023 4:58pm February 11, 2024 11:21am traMADol hydrochloride 50 mg oral tablet (6 sources) Opioid Agonist Start: 04-08-2023 End: 06-21-2024 take 1 tablet by mouth twice daily as needed for pain Tramadol 50 mg tablet Discontinued 50 mg PO TWICE A DAY as needed for pain 60 April 08, 2023 12:00am June 21, 2024 2:32pm Problems Active Problems Problem Classification Problem Date Documented Da te Episodic/Chronic Abdominal pain (20 sources) Abdominal pain; Translations: [Unspecified abdominal pain] Episodic Acute and unspecified renal failure (20 sources) Renal failure syndrome; Translations: [Unspecified kidney failure] 10-13-2018 Chronic Acute bronchitis (20 sources) Acute bronchitis; Translations: [Acute bronchitis, unspecified] 03-26-2022 Episodic Acute cerebrovascular disease (20 sources) Cerebrovascular accident; Translations: [Cerebral infarction, unspecified] Chronic Allergic reactions (18 sources) Allergic urticaria; Translations: [Allergic urticaria] Episodic Blindness and vision defects (20 sources) Disorder of vision; Translations: [Unspecified visual loss] 04-22-2018 Chronic Chronic kidney disease (20 sources) Chronic kidney disease stage 4; Translations: [Chronic kidney disease, stage 4 (severe)] Onset: 5 Chronic Comment on above: This patient's creat inine has been stable for the last several years. Chronic obstructive pulmonary disease and bronchiectasis (20 sources) Chronic bronchitis; Translations: [Unspecified chronic bronchitis] 04-22-2018 Chronic Deficiency and other anemia (20 sources) Anemia; Translations: [Anemia, unspecified] 04-22-2018 Episodic Deficiency and other anemia (1 source) Anemia, unspecified; Translations: [Anemia, unspecified] Onset: 5 Episodic Disorders of lipid metabolism (20 sources) Hypercholesterolemia; Translations: [Pure hypercholesterolemia, unspecified] 04-22-2018 Chronic Essential hypertension (20 sources) Hypertensive disorder; Translations: [Essential (primary) hypertension] Onset: 5 10-13-2018 Chronic Fracture of lower limb (20 sources) Closed fracture of distal fibula ; Translations: [Other fracture of upper and lower end of right fibula, initial encounter for closed fracture] 03-22-2021 Episodic Glaucoma (20 sources) Glaucoma; Translations: [Unspecified glaucoma] 04-22-2018 Chronic Gout and other crystal arthropathies (20 sources) Gout; Translations: [Gout, unspecified] 04-22-2018 Chronic Headache; including migraine (20 sources) Chronic headache disorder; Translations: [Chronic headache] 04-22-2018 Episodic Intestinal infection (20 sources) Clostridium difficile colitis; Translations: [Enterocolitis due to Clostridium difficile, not specified as recurrent] 10-07-2022 Episodic Malignant neoplasm without specification of site (3 sources) Squamous cell carcinoma 09-16-2022 Chronic Noninfectious gastroenteritis (20 sources) Gastroenteritis; Translations: [Noninfective gastroenteritis and colitis, unspecified] Episodic Osteoporosis (20 sources) Osteoporosis; Translations: [Age-related osteoporosis without current pathological fracture] 04-22-2018 Chronic Other and ill-defined heart disease (20 sources) Heart disease; Translations: [Heart disease, unspecified] 04-22-2018 Chronic Other and ill-defined heart disease (6 sources) Heart disease, unspecified; Translations: [Heart disease, unspecified] Onset: 01-01-2023 Chronic Other connective tissue disease (4 sources) History of lumbar fusion; Translations: [Arthrodesis status] 01-08-2024 Episodic Other connective tissue disease (1 source) Arthrodesis status; Translations: [Arthrodesis status] 01-08-2024 Episodic Other endocrine disorders (20 sources) Disorder of parathyroid gland; 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, unspecified] 04-22-2018 Chronic Other endocrine disorders (5 sources) Disorder of parathyroid gland, unspecified; Translations: [Unspecified disorder of parathyroid gland] 01-01-2023 Chronic Other gastrointestinal disorders (20 sources) Gastrointestinal tract problem; Translations: [Other specified symptoms and signs involving the digestive system and abdomen] 04-22-2018 Episodic Other infections; including parasitic (17 sources) H/O: colitis; Translations: [Personal history of other infectious and parasitic diseases] 05-02-2022 Episodic Other infections; including parasitic (7 sources) Personal history of other infectious and parasitic diseases; Translations: [Personal history of other diseases of digestive system] Episodic Other lower respiratory disease (20 sources) Cough; Translations: [Cough] Episodic Other non-epithelial cancer of skin (20 sources) Basal cell carcinoma of antihelix of ear; Translations: [Basal cell carcinoma of skin of right ear and external auricular canal] 04-13-2019 Episodic Comment on above: 7mm in size Other non-traumatic joint disorders (20 sources) Ankle pain; Translations: [Pain in right ankle and joints of right foot] 10-17-2020 Episodic Other non-traumatic joint disorders (12 sources) Hip pain; Translations: [Pain in right hip] 03-03-2023 Episodic Other non-traumatic joint disorders (5 sources) Pain in right hip; Translations: [Pain in joint, pelvic region and thigh] 03-03-2023 Episodic Other nutritional; endocrine; and metabolic disorders (20 sources) Hypercalcemia; Translations: [Hypercalcemia] 04-22-2018 Chronic Other skin disorders (15 sources) Cutaneous horn; Translations: [Other specified epidermal thickening] 08-20-2022 Episodic Other skin disorders (6 sources) Other specified epidermal thickening; Translations: [Other specified dermatoses] Episodic Other upper respiratory infections (4 sources) Chronic ethmoidal sinusitis; Translations: [Chronic ethmoidal sinusitis] Onset: 4 06-21-2024 Chronic Other upper respiratory infections (20 sources) Acute sinusitis; Translations: [Acute sinusitis, unspecified] Episodic Phlebitis; thrombophlebitis and thromboembolism (20 sources) Venous thrombosis; Translations: [Acute embolism and thrombosis of unspecified vein] 04-22-2018 Episodic Prolapse of female genital organs (20 sources) Cystocele; Translations: [Cystocele, unspecified] 01-17-2021 Chronic Comment on above: Because a solution t o this problem is obviously surgical I did not do a gynecologic exam on this patient. Residual codes; unclassified (4 sources) Family history of cancer of colon; Translations: [Family history of malignant neoplasm of digestive organs] 02-03-2024 Episodic Residual codes; unclassified (1 source) Family history of malignant neoplasm of digestive organs; Translations: [Family history of malignant neoplasm of gastrointestinal tract] 02-03-2024 Episodic Spondylosis; intervertebral disc disorders; other back problems (7 sources) Arthritis of facet joint of lumbar spine; Translations: [Spondylosis without myelopathy or radiculopathy, lumbar region] 07-24-2023 Chronic Spondylosis; intervertebral disc disorders; other back problems (20 sources) Back problem; Translations: [Dorsopathy, unspecified] 04-13-2019 Episodic Comment on above: Seeing Dr Flynn for pain management Sprains and strains (20 sources) Strain of knee; Translations: [Strain of unspecified muscle(s) and tendon(s) at lower leg level, unspecified leg, initial encounter] 03-03-2023 Episodic Thyroid disorders (1 source) Nontoxic single thyroid nodule; Translations: [Nontoxic single thyroid nodule] Onset: Chronic Unclassified (18 sources) Squamous cell carcinoma; Translations: [Squamous cell carcinoma] 09-16-2022 Urinary tract infections (19 sources) Urinary tract infectious disease; Translations: [Urinary tract infection, site not specified] 04-03-2022 Episodic Past or Other Problems Problem Classification Problem Date Documented Da te Episodic/Chronic Other diseases of kidney and ureters (1 source) Cyst of kidney, acquired; Translations: [Cyst of kidney, acquired] Onset: 04-20-2024 Episodic Other non-traumatic joint disorders (1 source) Pain in left hip; Translations: [Pain in left hip] Onset: 06-21-2024 Episodic Unclassified (18 sources) history Cystocele and rectocele 04-23-2022 Comment on above: 1993 Results Test Name Value Interpretation Reference Range Facility Internal Medicine Office Vis paula 03-01-2025 Internal Medicine Office Visit [facility] [address] [place] [address] [place] [address] OFFICE VISIT Date of Service: 03/01/25 MR#: [id number] Acct: [id number] Name: TANJA ATKINSON DEANDRE Rep #: [id number] : 1945 Provider: Dr. 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 Income Required: No Accompanied by: Self Is patient in pain?: No Allergies amlodipine besylate (From Freenom) Allergy (Verified 03/01/25 11:24) Swelling clindamycin Allergy (Verified 03/01/25 11:24) Rash codeine Adverse Reaction (Verified 03/01/25 11:24) Vomiting meperidine HCl (From Demerol) Adverse Reaction (Verified 03/01/25 11:24) Vomiting Medications ???Medication ???Instructions ???Recorded ???Confirmed ???Type acetaminophen 500 mg tablet 500 mg PO Q4H 04/12/19 03/01/25 Hi story (Tylenol Extra Strength) cholecalciferol (vitamin D3) 50 50 mcg PO DAILY 01/17/21 03/01/25 History mcg (2,000 unit) capsule polyethylene glycol 3350 17 17 g PO .COMPLEX 08/20/22 03/01/25 History gram/dose oral powder (Miralax) Bifidobacterium infantis 4 mg 4 mg PO DAILY 01/01/23 03/01/25 Hi story capsule (Align (B.infantis)) furosemide 40 mg tablet mg PO 02/11/24 03/01/25 History vancomycin 125 mg capsule 125 mg PO BID PRN 02/11/24 5 History aspirin 81 mg tablet,delayed 81 mg PO DAILY #90 tabs 06/21/24 0 03/01/25 Rx release (Enteric Coated Aspirin) magnesium oxide 400 mg (241.3 mg 400 mg PO DAILY #90 tabs 01/03/25 03/01/25 Rx magnesium) tablet (MagOx) rosuvastatin 5 mg tablet 5 mg PO QDAY #90 tabs 01/10/25 Rx atenolol 25 mg tablet 25 mg PO BID #90 tabs 02/21/25 Rx calcium citrate 200 mg PO BID 02/23/25 03/01/25 Hi story doxazosin 4 mg tablet 4 mg PO QPM 02/23/25 03/01/25 Hist ory netarsudil 0.02 %-latanoprost 1 drp ophthalmic (eye) QPM 5 03/01/25 History 0.005 % eye drops (Rocklatan) febuxostat 40 mg tablet (Uloric) 40 mg PO QDAY #90 tabs 02/28/25 Rx Have you fallen in the past year?: No PFSH Medical History Acute cervical myofascial strain Acute maxillary sinusitis, unspecified Thoracic myofascial strain Cervical strain history Cystocele and rectocele Vision problems Stroke Parathyroid disorder Osteoporosis Kidney failure High cholesterol High blood pressure High calcium levels Heart disease Chronic headaches Gout Gastrointestinal problem Glaucoma Blood clot in vein Chronic bronchitis Back problem Anemia Surgical History History of spinal surgery History of knee surgery History of hysterectomy History of vein stripping History of tubal ligation History of appendectomy Family History Father Angina pectoris CVA (cerebral vascular accident) Heart disease Brother Angina pectoris Kidney disease Heart disease Sister Angina pectoris Heart disease Mother Blood clot in vein Bowel disease Colon cancer Uterine cancer Social History Smoking Status: Never smoker alcohol intake: never substance use type: does not use what type of physical activity do you participate in: walking HPI HPI Chief Complaint: fu Details: TANJA ATKINSON, is a 79 F who presents to the office today for a follow-up visit after seeing the polisher brass Dr. Vizcaino. His recommendation was just follow-up with nephrology as she is done for about 10 years. He thought perhaps changing to carvedilol would be worthwhile, but the blood pressure reading we get in our office is low enough that I see no sense in that. ROS Const Constitutional: No body ache, excessive sweating, fatigue, fever(s), frequent falls, headache(s), snoring, weakness, weight change, sleep problems or change in appetite Eyes Eyes: No blurry vision, change in vision, eye pain or Light sensitivity ENT ENT: No abnormal hearing, ear or mastoid pain, tinnitus, nasal congestion, headache(s), neck pain or sore throat Resp Respiratory: No cough, shortness of breath, snoring or wheezing Cardio Cardiology: No chest pain at rest, chest pain with exertion, excessive sweating, shortness of breath, dyspnea on exertion, lightheadedness, orthop (more content not included)... Normal [facility] Cardiology Visit Reporton Cardiology Visit Report [facility] [address] [place] [address] OFFICE VISIT Date of Service: 02/23/25 MR#: [id number] Acct: [id number] Name: TANJA ATKINSON DEANDRE Rep #: [id number] : 1945 Provider: Dr. Lars jara MD Age/Sex: 79/F Location: [facility] Status: Signed HPI HPI History of Present Illness Details: Patient is a very pleasant 79-year-old white female that comes in with her today for new patient visit. The patient is referred for hypertension. Patient carries a history of chronic kidney disease followed by Dr. Woodall in [facility]. Her GFR runs in the 18 range as of January 2025. By report from her old charts it appears this has been fairly stable for several years. The patient has a history of difficult to control labile hypertension. She also has a history of some orthostatic changes and a history of remote multiple TIAs the worst of which was in 2003. The patient also carries a history of hyperlipidemia which is treated. Patient's blood pressure in office today is 197/92 she said earlier this morning at home it was 147/86. Heart rate is 59 and an ECG done in the office today shows a heart rate of 60 bpm and sinus rhythm with voltage criteria for LVH. Patient had a history of an echocardiogram done back in January 2023 which showed a normal EF 55-60%. She also has a negative stress test in 2015 that showed no evidence of ischemia. The patient reports that she occasionally gets some lightheaded spells mainly with change of position. She denies any aurora syncope or near syncope she did have her atenolol cut down from twice a day to once a day. She is not sure why. The patient is adamant that she does not want to ever be on dialysis. She [place] walk the stairs [place] without any significant restrictions other than her back pain which is chronic and she works in the yard utilizing a cane for support. Patient denies any significant lower extremity edema denies any PND orthopnea. She does have somewhat of an atypical musculoskeletal pain around the right breast area. This appears to be worse with position and with palpation. The patient denies having any breast masses. Patient denies any chest symptoms that were felt to be ischemic in etiology. Intake Vital Signs 07/20/24 13:39 02/23/25 14:29 Height 5 ft 2 in 5 ft 2 in Weight: 154 lb BMI 28.1 BP 197/92 H Blood Pressure Location Rt brachial Position Sitting Pulse 59 L Pulse Source Monitor Pulse Oximetry (%) 97 Oxygen Delivery Method room air Intake Visit Reasons: Establish, High BP Manager Fixed Income Required: No Accompanied by: Is patient in pain?: No Allergies amlodipine besylate (From Norvasc) Allergy (Verified 02/23/25 14:30) Swelling clindamycin Allergy (Verified 02/23/25 14:30) Rash codeine Adverse Reaction (Verified 02/23/25 14:30) Vomiting meperidine HCl (From Demerol) Adverse Reaction (Verified 02/23/25 14:30) Vomiting Medications ???Medication ???Instructions ???Recorded ???Confirmed ???Type acetaminophen 500 mg tablet 500 mg PO Q4H 04/12/19 02/23/25 Hi story (Tylenol Extra Strength) cholecalciferol (vitamin D3) 50 50 mcg PO DAILY 01/17/21 02/23/25 History mcg (2,000 unit) capsule polyethylene glycol 3350 17 17 g PO .COMPLEX 08/20/22 02/23/25 History gram/dose oral powder (Miralax) Bifidobacterium infantis 4 mg 4 mg PO DAILY 01/01/23 02/23/25 Hi story capsule (Align (B.infantis)) furosemide 40 mg tablet mg PO 02/11/24 02/23/25 History vancomycin 125 mg capsule 125 mg PO BID PRN 02/11/24 5 History aspirin 81 mg tablet,delayed 81 mg PO DAILY #90 tabs 06/21/24 0 02/23/25 Rx release (Enteric Coated Aspirin) febuxostat 40 mg tablet (Uloric) 40 mg PO QDAY #90 tabs 08/30/24 Rx magnesium oxide 400 mg (241.3 mg 400 mg PO DAILY #90 tabs 01/03/25 02/23/25 Rx magnesium) tablet (MagOx) rosuvastatin 5 mg tablet 5 mg PO QDAY #90 tabs 01/10/25 Rx atenolol 25 mg tablet 25 mg PO BID #90 tabs 02/21/25 Rx calcium citrate 200 mg PO BID 02/23/25 02/23/25 Hi story doxazosin 4 mg tablet 4 mg PO QPM 02/23/25 02/23/25 Hist ory netarsudil 0.02 %-latanoprost 1 drp ophthalmic (eye) QPM 5 02/23/25 History 0.005 % eye drops (Rocklatan) Ejection fraction %: 57 Have you fallen in the past year?: No [facility] Medical History Acute cervical myofascial strain Acute maxillary sinusitis, unspecified Thoracic myofascial strain Cervical strain history Cystocele and rectocele Vision problems Stroke Parathyroid disorder Osteoporosis Kidney failure High cholesterol High blood pressure High calcium levels Heart disease Chronic headaches Gout Gastrointestina (more content not included)... Normal [facility] Absolute lymphocyte countOrd ered By: Michel Woodall on 01-03-2025 Lymphocytes Auto (Unsp spec) [#/Vol] 1.84 10*3/uL 0.83-4.51 [facility] Absolute neutrophil countOrd ered By: Michel Woodall on 01-03-2025 Neutrophils (Bld) [#/Vol] 4.2 10*3/uL 2.0-7.7 [facility] Anion gap in Serum or Plasma Ordered By: Michel Woodall on 01-03-2025 Anion gap [Moles/Vol] 13 mmol/L 5-15 [facility] Automated lymphocyte count a s percentage of total leukocytesOrdered By: Michel Woodall on 01-03-2025 Lymphocytes/100 WBC Auto (Unsp spec) 26.1 % 19- [facility] BUN/creatinine ratioOrdered By: Michel Woodall on 01-03-2025 Urea nitrogen/Creatinine [Mass ratio] 16.5 mg/mg 10- [facility] Basophil percentageOrdered B y: Michel Woodall on 01-03-2025 Basophils/100 WBC (Bld) 0.6 % 0-1 [facility] CBC W/Diff, Automatedon Absolute Lymph 1.84 X10 3/uL Normal 0.83-4.51 [facility] Comment on above: Performed By: #### L 509.1000, L501.5200, L100.0100, L503.6550, L500.3600, L503.6030 ####[facility] [address] [place], [address] Absolute Neut 4.2 X10 3/uL Normal 2.0-7.7 [facility] Comment on above: Performed By: #### L 509.1000, L501.5200, L100.0100, L503.6550, L500.3600, L503.6030 ####[facility] [address] [place], [address] Basophils/100 WBC (Bld) 0.6 % Normal 0-1 [facility] Comment on above: Performed By: #### L 509.1000, L501.5200, L100.0100, L503.6550, L500.3600, L503.6030 ####[facility] [address] [place], [address] Eosinophils/100 WBC (Bld) 2.8 % Normal 0-5 [facility] Comment on above: Performed By: #### L 509.1000, L501.5200, L100.0100, L503.6550, L500.3600, L503.6030 ####[facility] [address] [place], [address] Erythrocyte distribution width (RBC) [Ratio] 12.3 % Normal 11.6-14.6 [facility] Comment on above: Performed By: #### L 509.1000, L501.5200, L100.0100, L503.6550, L500.3600, L503.6030 ####[facility] [address] [place], [address] Hematocrit (Bld) [Volume fraction] 30.3 % Low 37-47 [facility] Comment on above: Performed By: #### L 509.1000, L501.5200, L100.0100, L503.6550, L500.3600, L503.6030 ####[facility] [address] [place], [address] Hemoglobin (Bld) [Mass/Vol] 9.6 g/dL Low 12.0-15. 0 [facility] Comment on above: Performed By: #### L 509.1000, L501.5200, L100.0100, L503.6550, L500.3600, L503.6030 ####[facility] [address] [place], [address] IG% 0.100 Normal 0.0-0.9 [facility] Comment on above: Result Comment: IG% - Immature Granulocytes (promyelocytes, myelocytes and metamyelocytes) > 1% indicates that a LEFT SHIFT is Present. Performed By: #### L 509.1000, L501.5200, L100.0100, L503.6550, L500.3600, L503.6030 ####[facility] [address] [place], [address] Lymphocytes/100 WBC (Bld) 26.1 % Normal 19-41 [facility] Comment on above: Performed By: #### L 509.1000, L501.5200, L100.0100, L503.6550, L500.3600, L503.6030 ####[facility] [address] [place], [address] MCH (RBC) [Entitic mass] 29.5 pg Normal 27.0-32.0 [facility] Comment on above: Performed By: #### L 509.1000, L501.5200, L100.0100, L503.6550, L500.3600, L503.6030 ####[facility] [address] [place], [address] MCHC (RBC) [Mass/Vol] 31.7 g/dL Low 32-36 [facility] Comment on above: Performed By: #### L 509.1000, L501.5200, L100.0100, L503.6550, L500.3600, L503.6030 ####[facility] [address] [place], [address] MCV (RBC) [Entitic vol] 93.2 fL Normal 81-99 [facility] Comment on above: Performed By: #### L 509.1000, L501.5200, L100.0100, L503.6550, L500.3600, L503.6030 ####[facility] [address] [place], [address] Monocytes/100 WBC (Bld) 10.6 % High 0-10 [facility] Comment on above: Performed By: #### L 509.1000, L501.5200, L100.0100, L503.6550, L500.3600, L503.6030 ####[facility] [address] [place], [address] Neutrophils/100 WBC (Bld) 59.8 % Normal 47-70 [facility] Comment on above: Performed By: #### L 509.1000, L501.5200, L100.0100, L503.6550, L500.3600, L503.6030 ####[facility] [address] [place], [address] Nucleated RBC (Bld) [#/Vol] 0 10*3/uL Normal 0-5 [facility] Comment on above: Performed By: #### L 509.1000, L501.5200, L100.0100, L503.6550, L500.3600, L503.6030 ####[facility] [address] [place], [address] Platelet mean volume (Bld) [Entitic vol] 10.7 fL Normal 6.2-12.0 [facility] Comment on above: Performed By: #### L 509.1000, L501.5200, L100.0100, L503.6550, L500.3600, L503.6030 ####[facility] [address] [place], [address] Platelets (Bld) [#/Vol] 209 10*3/uL Normal 150-450 [facility] Comment on above: Performed By: #### L 509.1000, L501.5200, L100.0100, L503.6550, L500.3600, L503.6030 ####[facility] [address] [place], [address] RBC (Bld) [#/Vol] 3.25 10*6/uL Low 4.2-5.4 [facility] Comment on above: Performed By: #### L 509.1000, L501.5200, L100.0100, L503.6550, L500.3600, L503.6030 ####[facility] [address] [place], [address] RDW SD 42.2 fl Normal 35.1-43.9 [facility] Comment on above: Performed By: #### L 509.1000, L501.5200, L100.0100, L503.6550, L500.3600, L503.6030 ####[facility] [address] [place], [address] WBC (Bld) [#/Vol] 7.1 10*3/uL Normal 4.4-11.0 [facility] Comment on above: Performed By: #### L 509.1000, L501.5200, L100.0100, L503.6550, L500.3600, L503.6030 ####[facility] [address] [place], [address] Calculated total iron bindin g capacityOrdered By: Michel Woodall on 01-03-2025 Total Iron Binding Capacity 281 ug/dL 250-450 [facility] Carbon dioxide, total [Moles /volume] in Central venous bloodOrdered By: Michel Woodall on 01-03-2025 CO2 [Moles/Vol] 22.6 mmol/L 21.0-32.0 [facility] Chloride assayOrdered By: Timoteo Woodall on 01-03-2025 Chloride [Moles/Vol] 107 mmol/L 98-108 [facility] Eosinophil percentageOrdered By: Michel Woodall on 01-03-2025 Eosinophils/100 WBC (Bld) 2.8 % 0-5 [facility] Erythrocyte distribution wid th (RBC) [Ratio]Ordered By: Michel Woodall on 01-03-2025 Erythrocyte distribution width (RBC) [Entitic vol] 42.2 fL 35.1-43.9 [facility] Erythrocyte distribution wid th ratioOrdered By: Michel Woodall on 01-03-2025 Erythrocyte distribution width (RBC) [Ratio] 12.3 % 11.6-14.6 [facility] Erythrocyte distribution wid th standard deviationOrdered By: Michel Woodall on 01-03-2025 Erythrocyte distribution width (RBC) [Ratio] 42.2 fl 35.1-43.9 [facility] Ferritinon 01-03-2025 Ferritin [Mass/Vol] 108 ng/mL Normal 22-378 [facility] Comment on above: Performed By: #### L 509.1000, L501.5200, L100.0100, L503.6550, L500.3600, L503.6030 ####[facility] [address] [place], [place], [address] GFR/1.73 sq M.predicted enedelia g non-blacks MDRD (S/P/Bld) [Vol rate/Area]Ordered By: Michel Woodall on 01-03-2025 Estimated GFR (MDRD) Non-Af Amer 18 Low >60 [facility] Comment on above: mL/min/1.73m2 CKD-EP I Creatinine Equation (2020) Glomerular filtration rate ( GFR) estimation/1.73 sq m using serum, plasma, or whole bOrdered By: Michel Woodall on 01-03-2025 GFR/1.73 sq M.predicted among non-blacks MDRD (S/P/Bld) [Vol rate/Area] 18 mL/min/{1.73_m2} Low >60 [facility] Comment on above: mL/min/1.73m2 CKD-EP I Creatinine Equation (2020) Hematocrit Auto (Bld) [Volum e fraction]Ordered By: Michel Woodall on 01-03-2025 Hematocrit (Bld) [Volume fraction] 30.3 % Low 37-47 [facility] Hemoglobin measurementOrdere d By: Michel Woodall on 01-03-2025 Hemoglobin (Bld) [Mass/Vol] 9.6 g/dL Low 12.0-15. 0 [facility] Immature granulocytes/100 WB C Auto (Bld)Ordered By: Michel Woodall on 01-03-2025 Immature granulocytes/100 WBC (Bld) 0.100 % 0.0-0.9 [facility] Comment on above: IG% - Immature Granu locytes (promyelocytes, myelocytes and metamyelocytes) > 1% indicates that a LEFT SHIFT is Present. Iron (Unsp spec) [Mass/Mass] Ordered By: Michel Woodall on 01-03-2025 Iron [Mass/Vol] 55 ug/dL 50-170 [facility] Iron measurement (mass/mass) Ordered By: Michel Woodall on 01-03-2025 Iron (Unsp spec) [Mass/Mass] 55 ug/dL 50-170 [facility] Iron saturation [Mass fracti on]Ordered By: Michel Woodall on 01-03-2025 Iron Saturation 19.0 % 13-59 [facility] Iron+Iron Binding Capacityon 01-03-2025 Iron [Mass/Vol] 55 ug/dL Normal 50-170 [facility] Comment on above: Performed By: #### L 509.1000, L501.5200, L100.0100, L503.6550, L500.3600, L503.6030 ####[facility] [address] [place], [place], [id number] IRON SATURATION 19.0 Normal 13-59 [facility] Comment on above: Performed By: #### L 509.1000, L501.5200, L100.0100, L503.6550, L500.3600, L503.6030 ####[facility] [address] [place], [address] TIBC 281 ug/dL Normal 250-450 [facility] Comment on above: Performed By: #### L 509.1000, L501.5200, L100.0100, L503.6550, L500.3600, L503.6030 ####[facility] [address] [place], [address] UIBC 226 ug/dL Low 228-428 [facility] Comment on above: Performed By: #### L 509.1000, L501.5200, L100.0100, L503.6550, L500.3600, L503.6030 ####[facility] [address] [place], [address] Lymphocytes Auto (Unsp spec) [#/Vol]Ordered By: Michel Woodall on 01-03-2025 Lymphocytes (Bld) [#/Vol] 1.84 10*3/uL 0.83-4.5 1 [facility] Lymphocytes/100 WBC Auto (Un sp spec)Ordered By: Michel Woodall on 01-03-2025 Lymphocytes/100 WBC (Bld) 26.1 % 19-41 [facility] MCV (mean corpuscular volume ) determinationOrdered By: Michel Woodall on 01-03-2025 MCV (RBC) [Entitic vol] 93.2 fL 81-99 [facility] Magnesiumon 01-03-2025 Magnesium [Mass/Vol] 2.3 mg/dL High 1.5-2.2 [facility] Comment on above: Performed By: #### L 509.1000, L501.5200, L100.0100, L503.6550, L500.3600, L503.6030 ####[facility] [address] [place], [address] Magnesium (Unsp spec) [Mass/ Vol]Ordered By: Michel Woodall on 01-03-2025 Magnesium [Mass/Vol] 2.3 mg/dL High 1.5-2.2 [facility] Magnesium measurement (mass/ volume)Ordered By: Michel Woodall on 01-03-2025 Magnesium (Unsp spec) [Mass/Vol] 2.3 mg/dL High 1.5-2.2 [facility] Mean corpuscular hemoglobin (MCH) determinationOrdered By: Michel Woodall on 01-03-2025 MCH (RBC) [Entitic mass] 29.5 pg 27.0-32.0 [facility] Mean corpuscular hemoglobin concentration (MCHC) determinationOrdered By: Michel Woodall on 01-03-2025 MCHC (RBC) [Mass/Vol] 31.7 g/dL Low 32-36 [facility] Mean platelet volume determi nationOrdered By: Michel Woodall on 01-03-2025 Platelet mean volume (Bld) [Entitic vol] 10.7 fL 6.2-12.0 [facility] Monocyte percentageOrdered B y: Michel Woodall on 01-03-2025 Monocytes/100 WBC (Bld) 10.6 % High 0-10 [facility] Neutrophil percentageOrdered By: Michel Woodall on 01-03-2025 Neutrophils/100 WBC (Bld) 59.8 % 47-70 [facility] No Panel InformationOrdered By: Michel Woodall on 01-03-2025 Unsaturated Iron Binding Capacity 226 ug/dL Low 228-428 [facility] Nucleated red blood cell per centageOrdered By: Michel Woodall on 01-03-2025 Nucleated RBC/100 WBC (Bld) [Ratio] 0 % 0-5 [facility] PTH intactOrdered By: Michel Woodall on 01-03-2025 Parathyroid Hormone (Intact) 132 pg/mL High 11- [facility] PTHINon 01-03-2025 PTH 132 pg/mL High [facility] Comment on above: Performed By: #### L 509.1000, L501.5200, L100.0100, L503.6550, L500.3600, L503.6030 ####[facility] [address] [place], [address] Platelet countOrdered By: Timoteo Woodall on 01-03-2025 Platelets (Bld) [#/Vol] 209 10*3/uL 150-450 [facility] Potassium (Unsp spec) [Mass/ Vol]Ordered By: Michel Woodall on 01-03-2025 Potassium [Moles/Vol] 4.1 mmol/L 3.3-5.1 [facility] Potassium measurement (mass/ volume)Ordered By: Michel Woodall on 01-03-2025 Potassium (Unsp spec) [Mass/Vol] 4.1 mmol/L 3.3-5.1 [facility] RBC Auto (Bld) [#/Vol]Ordere d By: Michel Woodall on 01-03-2025 RBC (Bld) [#/Vol] 3.25 10*6/uL Low 4.2-5.4 [facility] Renal Profileon 01-03-2025 Albumin [Mass/Vol] 4.4 g/dL Normal 3.4-4.8 [facility] Comment on above: Performed By: #### L 509.1000, L501.5200, L100.0100, L503.6550, L500.3600, L503.6030 ####[facility] [address] [place], [address] BUN/CRE 16.5 RATIO Normal 10-20 [facility] Comment on above: Performed By: #### L 509.1000, L501.5200, L100.0100, L503.6550, L500.3600, L503.6030 ####[facility] [address] [place], [address] Calcium [Mass/Vol] 10.0 mg/dL Normal 7.6-11.0 [facility] Comment on above: Performed By: #### L 509.1000, L501.5200, L100.0100, L503.6550, L500.3600, L503.6030 ####[facility] [address] [place], [address] Chloride [Moles/Vol] 107 mmol/L Normal 98-108 [facility] Comment on above: Performed By: #### L 509.1000, L501.5200, L100.0100, L503.6550, L500.3600, L503.6030 ####[facility] [address] [place], [address] CO2 [Moles/Vol] 22.6 mmol/L Normal 21.0-32.0 [facility] Comment on above: Performed By: #### L 509.1000, L501.5200, L100.0100, L503.6550, L500.3600, L503.6030 ####[facility] [address] [place], [address] Creatinine [Mass/Vol] 2.61 mg/dL High 0.70-1.20 [facility] Comment on above: Performed By: #### L 509.1000, L501.5200, L100.0100, L503.6550, L500.3600, L503.6030 ####[facility] [address] [place], [address] GAP 13 Normal 5-15 [facility] Comment on above: Performed By: #### L 509.1000, L501.5200, L100.0100, L503.6550, L500.3600, L503.6030 ####[facility] [address] [place], [address] GFR/1.73 sq M.predicted among non-blacks MDRD (S/P/Bld) [Vol rate/Area] 18 mL/min/{1.73_m2} Low >60 [facility] Comment on above: Result Comment: mL/m in/1.73m2 CKD-EPI Creatinine Equation (2020) Performed By: #### L 509.1000, L501.5200, L100.0100, L503.6550, L500.3600, L503.6030 ####[facility] [address] [place], [address] Glucose [Mass/Vol] 83 mg/dL Normal 70-99 [facility] Comment on above: Performed By: #### L 509.1000, L501.5200, L100.0100, L503.6550, L500.3600, L503.6030 ####[facility] [address] [place], [address] Phosphate [Mass/Vol] 4.4 mg/dL Normal 2.7-4.5 [facility] Comment on above: Performed By: #### L 509.1000, L501.5200, L100.0100, L503.6550, L500.3600, L503.6030 ####[facility] [address] [place], [address] Potassium [Moles/Vol] 4.1 mmol/L Normal 3.3-5.1 [facility] Comment on above: Performed By: #### L 509.1000, L501.5200, L100.0100, L503.6550, L500.3600, L503.6030 ####[facility] [address] [place], [address] Sodium [Moles/Vol] 142 mmol/L Normal 133-145 [facility] Comment on above: Performed By: #### L 509.1000, L501.5200, L100.0100, L503.6550, L500.3600, L503.6030 ####[facility] [address] [place], [address] Urea nitrogen [Mass/Vol] 43 mg/dL High 4-19 [facility] Comment on above: Performed By: #### L 509.1000, L501.5200, L100.0100, L503.6550, L500.3603, L503.60 ####[facility] [address] [place], [address] Serum creatinine measurement (mass/volume)Ordered By: Michel Woodall on 01-03-2025 Creatinine [Mass/Vol] 2.61 mg/dL High 0.70-1.20 [facility] Serum glucose measurement (m ass/volume)Ordered By: Michel Woodall on 01-03-2025 Glucose [Mass/Vol] 83 mg/dL 70-99 [facility] Serum or plasma albumin marya urement (mass/volume)Ordered By: Michel Woodall on 01-03-2025 Albumin [Mass/Vol] 4.4 g/dL 3.4-4.8 [facility] Serum or plasma calcium marya urement (mass/volume)Ordered By: Michel Woodall on 01-03-2025 Calcium [Mass/Vol] 10.0 mg/dL 7.6-11.0 [facility] Serum or plasma ferritin errol surement (mass/volume)Ordered By: Michel Woodall on 01-03-2025 Ferritin [Mass/Vol] 108 ng/mL 22-378 [facility] Serum or plasma iron saturat ion measurement (mass fraction)Ordered By: Michel Woodall on 01-03-2025 Iron saturation [Mass fraction] 19.0 % 13-59 [facility] Serum or plasma urea nitroge n measurement (mass/volume)Ordered By: Michel Woodall on 01-03-2025 Urea nitrogen [Mass/Vol] 43 mg/dL High 4-19 [facility] Serum phosphorus measurement Ordered By: Michel Woodall on 01-03-2025 Phosphorus Level 4.4 mg/dL 2.7-4.5 [facility] Sodium levelOrdered By: Tonny Woodall on 01-03-2025 Sodium [Moles/Vol] 142 mmol/L 133-145 [facility] White blood cell (WBC) count Ordered By: Michel Woodall on 01-03-2025 WBC (Bld) [#/Vol] 7.1 10*3/uL 4.4-11.0 [facility] Absolute lymphocyte countOrd ered By: Michel Woodall on 11-14-2024 Lymphocytes Auto (Unsp spec) [#/Vol] 1.70 10*3/uL 0.83-4.51 [facility] Absolute neutrophil countOrd ered By: Michel Woodall on 11-14-2024 Neutrophils (Bld) [#/Vol] 3.3 10*3/uL 2.0-7.7 [facility] Automated lymphocyte count a s percentage of total leukocytesOrdered By: Michel Woodall on 11-14-2024 Lymphocytes/100 WBC Auto (Unsp spec) 28.3 % 19- [facility] Basophil percentageOrdered B y: Michel Barakatley on 11-14-2024 Basophils/100 WBC (Bld) 0.7 % 0-1 [facility] Blood urea nitrogen (BUN)/cr eatinine ratioOrdered By: Michel Barakatley on 11-14-2024 Urea nitrogen/Creatinine [Mass ratio] 14.5 mg/mg 10- [facility] CBC W/Diff, Automatedon 11-05 Absolute Lymph 1.70 X10 3/uL Normal 0.83-4.51 [facility] Comment on above: Performed By: #### L 100.0100, L509.1000, L500.3600 #### [facility] [address] [place], [address] Absolute Neut 3.3 X10 3/uL Normal 2.0-7.7 [facility] Comment on above: Performed By: #### L 100.0100, L509.1000, L500.3600 #### [facility] [address] [place], [address] Basophils/100 WBC (Bld) 0.7 % Normal 0-1 [facility] Comment on above: Performed By: #### L 100.0100, L509.1000, L500.3600 #### [facility] [address] [place], [address] Eosinophils/100 WBC (Bld) 3.0 % Normal 0-5 [facility] Comment on above: Performed By: #### L 100.0100, L509.1000, L500.3600 #### [facility] [address] [place], [address] Erythrocyte distribution width (RBC) [Ratio] 12.0 % Normal 11.6-14.6 [facility] Comment on above: Performed By: #### L 100.0100, L509.1000, L500.3600 #### [facility] [address] [place], [address] Hematocrit (Bld) [Volume fraction] 30.4 % Low 37-47 [facility] Comment on above: Performed By: #### L 100.0100, L509.1000, L500.3600 #### [facility] [address] [place], [address] Hemoglobin (Bld) [Mass/Vol] 9.6 g/dL Low 12.0-15. 0 [facility] Comment on above: Performed By: #### L 100.0100, L509.1000, L500.3600 #### [facility] [address] [place], [address] IG% 0.500 Normal 0.0-0.9 [facility] Comment on above: Result Comment: IG% - Immature Granulocytes (promyelocytes, myelocytes and metamyelocytes) > 1% indicates that a LEFT SHIFT is Present. Performed By: #### L 100.0100, L509.1000, L500.3600 #### [facility] [address] [place], [address] Lymphocytes/100 WBC (Bld) 28.3 % Normal 19-41 [facility] Comment on above: Performed By: #### L 100.0100, L509.1000, L500.3600 #### [facility] [address] [place], [address] MCH (RBC) [Entitic mass] 29.9 pg Normal 27.0-32.0 [facility] Comment on above: Performed By: #### L 100.0100, L509.1000, L500.3600 #### [facility] [address] [place], [address] MCHC (RBC) [Mass/Vol] 31.6 g/dL Low 32-36 [facility] Comment on above: Performed By: #### L 100.0100, L509.1000, L500.3600 #### [facility] [address] [place], [address] MCV (RBC) [Entitic vol] 94.7 fL Normal 81-99 [facility] Comment on above: Performed By: #### L 100.0100, L509.1000, L500.3600 #### [facility] [address] [place], [address] Monocytes/100 WBC (Bld) 12.2 % High 0-10 [facility] Comment on above: Performed By: #### L 100.0100, L509.1000, L500.3600 #### [facility] [address] [place], [address] Neutrophils/100 WBC (Bld) 55.3 % Normal 47-70 [facility] Comment on above: Performed By: #### L 100.0100, L509.1000, L500.3600 #### [facility] [address] [place], [address] Nucleated RBC (Bld) [#/Vol] 0 10*3/uL Normal 0-5 [facility] Comment on above: Performed By: #### L 100.0100, L509.1000, L500.3600 #### [facility] [address] [place], [address] Platelet mean volume (Bld) [Entitic vol] 10.8 fL Normal 6.2-12.0 [facility] Comment on above: Performed By: #### L 100.0100, L509.1000, L500.3600 #### [facility] [address] [place], [address] Platelets (Bld) [#/Vol] 197 10*3/uL Normal 150-450 [facility] Comment on above: Performed By: #### L 100.0100, L509.1000, L500.3600 #### [facility] [address] [place], [address] RBC (Bld) [#/Vol] 3.21 10*6/uL Low 4.2-5.4 [facility] Comment on above: Performed By: #### L 100.0100, L509.1000, L500.3600 #### [facility] [address] [place], [address] RDW SD 41.5 fl Normal 35.1-43.9 [facility] Comment on above: Performed By: #### L 100.0100, L509.1000, L500.3600 #### [facility] [address] [place], [address] WBC (Bld) [#/Vol] 6.0 10*3/uL Normal 4.4-11.0 [facility] Comment on above: Performed By: #### L 100.0100, L509.1000, L500.3600 #### [facility] [address] [place], [address] Carbon dioxide measurementOr dered By: Michel Woodall on 11-14-2024 CO2 [Moles/Vol] 26.0 mmol/L 21.0-32.0 [facility] Chloride measurementOrdered By: Michel Woodall on 11-14-2024 Chloride [Moles/Vol] 106 mmol/L 98-107 [facility] Eosinophil percentageOrdered By: Michel Woodall on 11-14-2024 Eosinophils/100 WBC (Bld) 3.0 % 0-5 [facility] Erythrocyte distribution wid th (RBC) [Ratio]Ordered By: Michel Woodall on 11-14-2024 Erythrocyte distribution width (RBC) [Entitic vol] 41.5 fL 35.1-43.9 [facility] Erythrocyte distribution wid th ratioOrdered By: Michel Woodall on 11-14-2024 Erythrocyte distribution width (RBC) [Ratio] 12.0 % 11.6-14.6 [facility] Erythrocyte distribution wid th standard deviationOrdered By: Michel Woodall on 11-14-2024 Erythrocyte distribution width (RBC) [Ratio] 41.5 fl 35.1-43.9 [facility] Estimated glomerular filtrat ion rate (GFR) AmericanOrdered By: Michel Woodall on 11-14-2024 Estimated GFR (MDRD) Amer 21 mL/min Low >60 [facility] Comment on above: GFR Calc Glomerular filtration rate ( GFR) estimationOrdered By: Michel Woodall on 11-14-2024 Estimated GFR (MDRD) Non-Af Amer 18 mL/min Low >60 [facility] Comment on above: Non- GFR Calc GFR/1.73 sq M.predicted among non-blacks MDRD (S/P/Bld) [Vol rate/Area] 18 mL/min/{1.73_m2} Low >60 [facility] Comment on above: Non- GFR Calc Glucose measurementOrdered B y: Michel Woodall on 11-14-2024 Glucose [Mass/Vol] 90 mg/dL 74-106 [facility] Hematocrit Auto (Bld) [Volum e fraction]Ordered By: Michel Woodall on 11-14-2024 Hematocrit (Bld) [Volume fraction] 30.4 % Low 37-47 [facility] Hemoglobin measurementOrdere d By: Michel Woodall on 11-14-2024 Hemoglobin (Bld) [Mass/Vol] 9.6 g/dL Low 12.0-15. 0 [facility] Immature granulocytes/100 WB C Auto (Bld)Ordered By: Michel Woodall on 11-14-2024 Immature granulocytes/100 WBC (Bld) 0.500 % 0.0-0.9 [facility] Comment on above: IG% - Immature Granu locytes (promyelocytes, myelocytes and metamyelocytes) > 1% indicates that a LEFT SHIFT is Present. Intact parathyroid hormone ( iPTH) measurementOrdered By: Michel Woodall on 11-14-2024 Parathyroid Hormone (Intact) 132.1 pg/mL High 18.4-80.1 [facility] Lymphocytes Auto (Unsp spec) [#/Vol]Ordered By: Michel Woodall on 11-14-2024 Lymphocytes (Bld) [#/Vol] 1.70 10*3/uL 0.83-4.5 1 [facility] Lymphocytes/100 WBC Auto (Un sp spec)Ordered By: Michel Woodall on 11-14-2024 Lymphocytes/100 WBC (Bld) 28.3 % 19-41 [facility] MCV (mean corpuscular volume ) determinationOrdered By: Michel Woodall on 11-14-2024 MCV (RBC) [Entitic vol] 94.7 fL 81-99 [facility] Mean corpuscular hemoglobin (MCH) determinationOrdered By: Michel Woodall on 11-14-2024 MCH (RBC) [Entitic mass] 29.9 pg 27.0-32.0 [facility] Mean corpuscular hemoglobin concentration (MCHC) determinationOrdered By: Michel Woodall on 11-14-2024 MCHC (RBC) [Mass/Vol] 31.6 g/dL Low 32-36 [facility] Mean platelet volume determi nationOrdered By: Michel Woodall on 11-14-2024 Platelet mean volume (Bld) [Entitic vol] 10.8 fL 6.2-12.0 [facility] Monocyte percentageOrdered B y: Michel Woodall on 11-14-2024 Monocytes/100 WBC (Bld) 12.2 % High 0-10 [facility] Neutrophil percentageOrdered By: Michel Woodall on 11-14-2024 Neutrophils/100 WBC (Bld) 55.3 % 47-70 [facility] Nucleated red blood cell per centageOrdered By: Michel Woodall on 11-14-2024 Nucleated RBC/100 WBC (Bld) [Ratio] 0 % 0-5 [facility] PTHINon 11-14-2024 PTH 132.1 pg/mL High 18.4-80.1 [facility] Comment on above: Performed By: #### L 100.0100, L509.1000, L500.3600 #### [facility] [address] [place], [address] Phosphorus measurementOrdere d By: Michel Woodall on 11-14-2024 Phosphorus Level 3.9 mg/dL 2.5-4.9 [facility] Platelet countOrdered By: Timoteo Woodall on 11-14-2024 Platelets (Bld) [#/Vol] 197 10*3/uL 150-450 [facility] Potassium measurementOrdered By: Michel Woodall on 11-14-2024 Potassium [Moles/Vol] 3.9 mmol/L 3.5-5.1 [facility] RBC Auto (Bld) [#/Vol]Ordere d By: Michel Woodall on 11-14-2024 RBC (Bld) [#/Vol] 3.21 10*6/uL Low 4.2-5.4 [facility] Renal Profileon 11-14-2024 Albumin [Mass/Vol] 3.8 g/dL Normal 3.2-5.0 [facility] Comment on above: Performed By: #### L 100.0100, L509.1000, L500.3600 #### [facility] [address] [place], [address] BUN/CRE 14.5 RATIO Normal 10-20 [facility] Comment on above: Performed By: #### L 100.0100, L509.1000, L500.3600 #### [facility] [address] [place], [address] CA,Total 10.4 mg/dL High 8.5-10.1 [facility] Comment on above: Performed By: #### L 100.0100, L509.1000, L500.3600 #### [facility] [address] [place], [address] Chloride [Moles/Vol] 106 mmol/L Normal 98-107 [facility] Comment on above: Performed By: #### L 100.0100, L509.1000, L500.3600 #### [facility] [address] [place], [address] CO2 [Moles/Vol] 26.0 mmol/L Normal 21.0-32.0 [facility] Comment on above: Performed By: #### L 100.0100, L509.1000, L500.3600 #### [facility] [address] [place], [address] Creatinine [Mass/Vol] 2.75 mg/dL High 0.55-1.02 [facility] Comment on above: Result Comment: The validity of the calculated GFR GFRAA in patients over 70 years has not been determined. Clinical correlation is essential. Performed By: #### L 100.0100, L509.1000, L500.3600 #### [facility] [address] [place], [address] EST GFR - AA 21 mL/min Low >60 [facility] Comment on above: Result Comment: Afri can [place] GFR Calc Performed By: #### L 100.0100, L509.1000, L500.3600 #### [facility] [address] [place], [address] GFR/1.73 sq M.predicted among non-blacks MDRD (S/P/Bld) [Vol rate/Area] 18 mL/min/{1.73_m2} Low >60 [facility] Comment on above: Result Comment: Non- GFR Calc Performed By: #### L 100.0100, L509.1000, L500.3600 #### [facility] [address] [place], [address] Glucose [Mass/Vol] 90 mg/dL Normal 74-106 [facility] Comment on above: Performed By: #### L 100.0100, L509.1000, L500.3600 #### [facility] [address] [place], [address] Phosphate [Mass/Vol] 3.9 mg/dL Normal 2.5-4.9 [facility] Comment on above: Performed By: #### L 100.0100, L509.1000, L500.3600 #### [facility] [address] [place], [address] Potassium [Moles/Vol] 3.9 mmol/L Normal 3.5-5.1 [facility] Comment on above: Performed By: #### L 100.0100, L509.1000, L500.3600 #### [facility] [address] [place], [address] Sodium [Moles/Vol] 139 mmol/L Normal 136-145 [facility] Comment on above: Performed By: #### L 100.0100, L509.1000, L500.3600 #### [facility] [address] [place], [address] Urea nitrogen [Mass/Vol] 40 mg/dL High 7-18 [facility] Comment on above: Performed By: #### L 100.0100, L509.1000, L500.3600 #### [facility] [address] [place], [address] Serum or plasma albumin marya urement (mass/volume)Ordered By: Michel Woodall on 11-14-2024 Albumin [Mass/Vol] 3.8 g/dL 3.2-5.0 [facility] Serum or plasma calcium marya urement (mass/volume)Ordered By: Michel Woodall on 11-14-2024 Calcium [Mass/Vol] 10.4 mg/dL High 8.5-10.1 [facility] Serum or plasma creatinine m easurement (mass/volume)Ordered By: Michel Woodall on 11-14-2024 Creatinine [Mass/Vol] 2.75 mg/dL High 0.55-1.02 [facility] Comment on above: The validity of the calculated GFR & GFRAA in patients over 70 years has not been determined. Clinical correlation is essential. Serum or plasma urea nitroge n measurement (mass/volume)Ordered By: Michel Woodall on 11-14-2024 Urea nitrogen [Mass/Vol] 40 mg/dL High 7-18 [facility] Sodium levelOrdered By: Tonny Woodall on 11-14-2024 Sodium [Moles/Vol] 139 mmol/L 136-145 [facility] White blood cell (WBC) count Ordered By: Michel Woodall on 11-14-2024 WBC (Bld) [#/Vol] 6.0 10*3/uL 4.4-11.0 [facility] Lower GI hemoglobin IA Ql (S tl)Ordered By: Robb Leyva on 10-14-2024 Stool Occult Blood (ION) [facility] Stool Occult Blood iFOBon STOB Negative Normal [facility] Comment on above: Performed By: #### M 100.7900 #### [facility] [address] [place], [address] T3 Total - Triiodothyronineo n 08-31-2024 T3 Total 1.09 ng/mL Normal 0.6-1.81 [facility] Comment on above: Performed By: #### L 501.9186, L501.9520, L506.0400 #### [facility] [address] [place], [address] T4 Free Directon 08-31-2024 T4 FREE DIRECT 0.94 ng/dL Normal 0.76-1.46 [facility] Comment on above: Order Comment: N Performed By: #### L 501.9186, L501.9520, L506.0400 ####[facility] [address] [place], [address] Thyroidon 08-31-2024 Thyroid [facility] [address] [place], [place] [address] Thyroid MR#: [id number] Acct: [id number] Name: TANJA ATKINSON DEANDRE Rep #: [id number] : 1945 F 79 From: Trenton Pedroza MD PCP: Dr. Luís Rodriguez DO Status: REG CLI Study: Thyroid Date of Exam: 08/31/24 Exam# [id number] Ordering Dr: Michel Woodall MD [id number] EXAM: US SOFT TISSUES HEAD AND NECK, THYROID CLINICAL INDICATION: SINGLE NODULE TECHNIQUE: Carrion scale and color doppler imaging was performed of the thyroid gland. COMPARISON: No relevant prior studies available. FINDINGS: LEFT THYROID LOBE: Left thyroid lobe measures 3.7 x 1.6 x 1.4 cm. Heterogeneous echotexture. 10 mm nodule within the superior pole of the left thyroid lobe. This nodule is mixed cystic and solid, hyperechoic or isoechoic, hroam-tuth-sazg, is lobulated or irregular and contains no echogenic foci. TI-RADS points: 4. TI-RADS category: TR4. This nodule is moderately suspicious. Recommend follow-up thyroid ultrasounds at 1 year. Additional small colloid cyst within the left thyroid lobe. RIGHT THYROID LOBE: Right thyroid lobe measures 4.2 x 1.3 x 1.3 cm. Several subcentimeter colloid cysts noted within the right thyroid lobe. No evidence of a discrete solid nodule. Homogeneous echotexture with normal vascularity. ISTHMUS: Normal. No thyroid nodules are present. US/Thyroid IMPRESSION: 1 cm left thyroid nodule with TR score of 4. Follow-up recommended in one year. Electronically Signed: Trenton Pedroza MD at 11:36 EST , CC: Dr. Luís Rodriguez DO; Dr. 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 Normal [facility] Thyroid Stim Hormone (TSH)on 08-31-2024 TSH 2.430 uIU/mL Normal 0.358-3.740 [facility] Comment on above: Order Comment: N Performed By: #### L 501.9186, L501.9520, L506.0400 #### [facility] [address] [place], [address] CBC W/Diff, Automatedon 08-05 Absolute Lymph 2.16 X10 3/uL Normal 0.83-4.51 [facility] Comment on above: Performed By: #### M 100.7900 #### [facility] [address] [place], [address] Absolute Neut 4.5 X10 3/uL Normal 2.0-7.7 [facility] Comment on above: Performed By: #### M 100.7900 #### [facility] [address] [place], [address] Basophils/100 WBC (Bld) 0.6 % Normal 0-1 [facility] Comment on above: Performed By: #### M 100.7900 #### [facility] [address] [place], [address] Eosinophils/100 WBC (Bld) 2.4 % Normal 0-5 [facility] Comment on above: Performed By: #### M 100.7900 #### [facility] [address] [place], [address] Erythrocyte distribution width (RBC) [Ratio] 11.9 % Normal 11.6-14.6 [facility] Comment on above: Performed By: #### M 100.7900 #### [facility] [address] [place], [address] Hematocrit (Bld) [Volume fraction] 33.1 % Low 37-47 [facility] Comment on above: Performed By: #### M 100.7900 #### [facility] [facility] [address] [place], [address] Hemoglobin (Bld) [Mass/Vol] 10.4 g/dL Low 12.0-15. 0 [facility] Comment on above: Performed By: #### M 100.7900 #### [facility] [address] [place], [address] IG% 0.400 Normal 0.0-0.9 [facility] Comment on above: Result Comment: IG% - Immature Granulocytes (promyelocytes, myelocytes and metamyelocytes) > 1% indicates that a LEFT SHIFT is Present. Performed By: #### M 100.7900 #### [facility] [address] [place], [address] Lymphocytes/100 WBC (Bld) 27.6 % Normal 19-41 [facility] Comment on above: Performed By: #### M 100.7900 #### [facility] [address] [place], [address] MCH (RBC) [Entitic mass] 30.4 pg Normal 27.0-32.0 [facility] Comment on above: Performed By: #### M 100.7900 #### [facility] [address] [place], [address] MCHC (RBC) [Mass/Vol] 31.4 g/dL Low 32-36 [facility] Comment on above: Performed By: #### M 100.7900 #### [facility] [address] [place], [address] MCV (RBC) [Entitic vol] 96.8 fL Normal 81-99 [facility] Comment on above: Performed By: #### M 100.7900 #### [facility] [address] [place], [address] Monocytes/100 WBC (Bld) 11.1 % High 0-10 [facility] Comment on above: Performed By: #### M 100.7900 #### [facility] [address] [place], [address] Neutrophils/100 WBC (Bld) 57.9 % Normal 47-70 [facility] Comment on above: Performed By: #### M 100.7900 #### [facility] [address] [place], [address] Nucleated RBC (Bld) [#/Vol] 0 10*3/uL Normal 0-5 [facility] Comment on above: Performed By: #### M 100.7900 #### [facility] [address] [place], [address] Platelet mean volume (Bld) [Entitic vol] 10.7 fL Normal 6.2-12.0 [facility] Comment on above: Performed By: #### M 100.7900 #### [facility] [address] [place], [address] Platelets (Bld) [#/Vol] 233 10*3/uL Normal 150-450 [facility] Comment on above: Performed By: #### M 100.7900 #### [facility] [address] [place], [address] RBC (Bld) [#/Vol] 3.42 10*6/uL Low 4.2-5.4 [facility] Comment on above: Performed By: #### M 100.7900 #### [facility] [address] [place], [address] RDW SD 41.9 fl Normal 35.1-43.9 [facility] Comment on above: Performed By: #### M 100.7900 #### [facility] [address] [place], [address] WBC (Bld) [#/Vol] 7.8 10*3/uL Normal 4.4-11.0 [facility] Comment on above: Performed By: #### M 100.7900 #### [facility] [address] [place], [address] Magnesiumon 08-22-2024 Magnesium [Mass/Vol] 2.3 mg/dL Normal 1.6-2.6 [facility] Comment on above: Performed By: #### M 100.7900 #### [facility] [address] [place], [address] PTHINon 08-22-2024 PTH 109.6 pg/mL High 18.4-80.1 [facility] Comment on above: Performed By: #### M 100.7900 #### [facility] [address] [place], [address] Protein+Creatinine Ratio,Uri neon 08-22-2024 PROT:CRE RATIO 278 mg/g CRE High 0-200 [facility] Comment on above: Performed By: #### M 100.7900 #### [facility] [address] [place], [address] Protein (U) [Mass/Vol] 22.0 mg/dL High <11.9 [facility] Comment on above: Performed By: #### M 100.7900 #### [facility] [address] [place], [address] UR CREAT 79.20 mg/dL Normal NO RANGE EST. [facility] Comment on above: Performed By: #### M 100.7900 #### [facility] [address] [place], [address] Renal Profileon 08-22-2024 Albumin [Mass/Vol] 3.9 g/dL Normal 3.2-5.0 [facility] Comment on above: Performed By: #### M 100.7900 #### [facility] [address] [place], [address] BUN/CRE 17.6 RATIO Normal 10-20 [facility] Comment on above: Performed By: #### M 100.7900 #### [facility] [address] [place], [address] CA,Total 10.0 mg/dL Normal 8.5-10.1 [facility] Comment on above: Performed By: #### M 100.7900 #### [facility] [address] [place], [address] Chloride [Moles/Vol] 107 mmol/L Normal 98-107 [facility] Comment on above: Performed By: #### M 100.7900 #### [facility] [address] [place], [address] CO2 [Moles/Vol] 26.0 mmol/L Normal 21.0-32.0 [facility] Comment on above: Performed By: #### M 100.7900 #### [facility] [address] [place], [address] Creatinine [Mass/Vol] 2.56 mg/dL High 0.55-1.02 [facility] Comment on above: Result Comment: The validity of the calculated GFR GFRAA in patients over 70 years has not been determined. Clinical correlation is essential. Performed By: #### M 100.7900 #### [facility] [address] [place], [address] EST GFR - AA 23 mL/min Low >60 [facility] Comment on above: Result Comment: Afri can Grenadian GFR Calc Performed By: #### M 100.7900 #### [facility] [address] [place], [address] GFR/1.73 sq M.predicted among non-blacks MDRD (S/P/Bld) [Vol rate/Area] 19 mL/min/{1.73_m2} Low >60 [facility] Comment on above: Result Comment: Non- GFR Calc Performed By: #### M 100.7900 #### [facility] [address] [place], [address] Glucose [Mass/Vol] 97 mg/dL Normal 74-106 [facility] Comment on above: Performed By: #### M 100.7900 #### [facility] [address] [place], [address] Phosphate [Mass/Vol] 4.3 mg/dL Normal 2.5-4.9 [facility] Comment on above: Performed By: #### M 100.7900 #### [facility] [address] [place], [address] Potassium [Moles/Vol] 4.1 mmol/L Normal 3.5-5.1 [facility] Comment on above: Performed By: #### M 100.7900 #### [facility] [address] [place], [address] Sodium [Moles/Vol] 138 mmol/L Normal 136-145 [facility] Comment on above: Performed By: #### M 100.7900 #### [facility] [address] [place], [address] Urea nitrogen [Mass/Vol] 45 mg/dL High 7-18 [facility] Comment on above: Performed By: #### M 100.7900 #### [facility] [address] [place], [address] Office Visit Reporton 2023 Office Visit Report [facility] [address] [place] [address] OFFICE VISIT Date of Service: 07/20/24 MR#: [id number] Acct: [id number] Patient: TANJA ATKINSON DEANDRE Rep #: [id number] : 1945 Provider: CORINNE Lewis Age/Sex: 79/F Location: [facility] Status: Signed Intake Vital Signs 06/21/24 14:33 07/20/24 13:39 Height 5 ft 2 in 5 ft 2 in Weight: 155 lb BMI 28.3 BP 132/80 H Blood Pressure Location Lt brachial Position Sitting Respiration 16 Pulse 80 Pulse Source Monitor Temp 97.6 F L Temp Source Temporal Pulse Oximetry (%) 97 Oxygen Delivery Method room air Intake Visit Reasons: FLU VACCINE Chief Complaint: yearly Allergies amlodipine besylate (From Norvasc) Allergy (Verified 06/21/24 14:29) Swelling clindamycin Allergy (Verified 06/21/24 14:29) Rash codeine Adverse Reaction (Verified 06/21/24 14:29) Vomiting meperidine HCl (From Demerol) Adverse Reaction (Verified 06/21/24 14:29) Vomiting Have you fallen in the past year?: No Office Procedures [facility] Billing Sheet Vaccine Flu Vaccine (65 older): Yes Clinical Quality Measures Falls Risk Screening/Assistive Devices Have you fallen in the past year?: No 07/22/24 1244 Date Jewel Paz Signature: Date (if applicable) CC: Jenna [facility] Internal Medicine Office Vis paula 06-21-2024 Internal Medicine Office Visit [facility] [address] [place] [id number] OFFICE VISIT Date of Service: 06/21/24 MR#: [id number] Acct: [id number] Name: TANJA ATKINSON DEANDRE Rep #: [id number] : 1945 Provider: Dr. 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 Income Required: No Accompanied by: Self Is patient in pain?: No Allergies amlodipine besylate (From Norvas) Allergy (Verified 06/21/24 14:29) Swelling clindamycin Allergy (Verified 06/21/24 14:29) Rash codeine Adverse Reaction (Verified 06/21/24 14:29) Vomiting meperidine HCl (From Demerol) Adverse Reaction (Verified 06/21/24 14:29) Vomiting Medications ???Medication ???Instructions ???Recorded ???Confirmed ???Type calcitriol 0.25 mcg capsule 0.25 mcg PO .tiw 04/22/18 06/21/24 History latanoprost 0.005 % eye drops 1 drp ophthalmic (eye) QPM 04/22/18 06/21/24 History lisinopril 5 mg tablet 10 mg PO QDAY 04/22/18 06/21/24 History acetaminophen 500 mg tablet 500 mg PO Q4H 04/12/19 06/21/24 History (Tylenol Extra Strength) cholecalciferol (vitamin D3) 50 50 mcg PO DAILY 01/17/21 06/21/24 History mcg (2,000 unit) capsule calcium citrate 200 mg (950 mg) 200 mg PO DAILY 04/10/21 06/21/24 History tablet polyethylene glycol 3350 17 17 g PO .COMPLEX 08/20/22 06/21/24 History gram/dose oral powder (Miralax) Bifidobacterium infantis 4 mg 4 mg PO DAILY 01/01/23 06/21/24 History capsule (Align) magnesium oxide 400 mg (241.3 mg 400 mg PO DAILY #90 tabs 01/05/24 06/21/24 Rx magnesium) tablet (MagOx) doxazosin 2 mg tablet 2 mg PO DAILY 02/03/24 06/21/24 History furosemide 40 mg tablet mg PO 02/11/24 06/21/24 History vancomycin 125 mg capsule 125 mg PO BID PRN 02/11/24 06/21/24 History febuxostat 40 mg tablet (Uloric) 40 mg PO QDAY #90 tabs 03/03/24 06/21/24 Rx rosuvastatin 5 mg tablet 5 mg PO QDAY #90 tabs 04/06/24 06/21/24 Rx aspirin 81 mg tablet,delayed 81 mg PO DAILY #90 tabs 06/21/24 06/21/24 Rx release (Enteric Coated Aspirin) atenolol 25 mg tablet 25 mg PO BID #90 tabs 06/21/24 06/21/24 Rx levocetirizine 5 mg tablet (Xyzal) 5 mg PO QDAY #20 tabs 06/21/24 06/21/24 Rx Have you fallen in the past year?: No PFSH Medical History Acute cervical myofascial strain Acute maxillary sinusitis, unspecified Thoracic myofascial strain Cervical strain history Cystocele and rectocele Vision problems Stroke Parathyroid disorder Osteoporosis Kidney failure High cholesterol High blood pressure High calcium levels Heart disease Chronic headaches Gout Gastrointestinal problem Glaucoma Blood clot in vein Chronic bronchitis Back problem Anemia Surgical History History of spinal surgery History of knee surgery History of hysterectomy History of vein stripping History of tubal ligation History of appendectomy Family History Father Angina pectoris CVA (cerebral vascular accident) Heart disease Brother Angina pectoris Kidney disease Heart disease Sister Angina pectoris Heart disease Mother Blood clot in vein Bowel disease Colon cancer Uterine cancer Social History Smoking Status: Never smoker alcohol intake: never substance use type: does not use what type of physical activity do you participate in: walking HPI HPI Chief Complaint: yearly Details: TANJA ATKINSON, is a 79 F who presents to the office today for a yearly checkup. 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 She is slightly dizzy when she first gets up but it stabilizes and she is fairly active walking outside. ROS Const Constitutional: No body ache, chills, excessive sweating, fatigue, fever(s), frequent falls, headache(s), snoring, weakness or change in appetite Eyes Eyes: No blurry vision, change in vision, eye pain or Light sensitivity ENT ENT: No abnormal hearing, ear or mastoid pain, tinnitus, nasal congestion, headache(s), neck pain or sore throat Resp Respiratory: No cough, s (more content not included)... Normal [facility] CBC W/Diff, Automatedon 07-0 -2023 Absolute Lymph 1.77 X10 3/uL Normal 0.83-4.51 [facility] Comment on above: Performed By: #### L 500.3600, L503.6550, L501.0900, L100.0100, L503.6030 ####[facility] [address] [place], [address] Absolute Neut 3.9 X10 3/uL Normal 2.0-7.7 [facility] Comment on above: Performed By: #### L 500.3600, L503.6550, L501.0900, L100.0100, L503.6030 ####[facility] [address] [place], [address] Basophils/100 WBC (Bld) 0.7 % Normal 0-1 [facility] Comment on above: Performed By: #### L 500.3600, L503.6550, L501.0900, L100.0100, L503.6030 ####[facility] [address] [place], [address] Eosinophils/100 WBC (Bld) 3.5 % Normal 0-5 [facility] Comment on above: Performed By: #### L 500.3600, L503.6550, L501.0900, L100.0100, L503.6030 ####[facility] [address] [place], [address] Erythrocyte distribution width (RBC) [Ratio] 12.4 % Normal 11.6-14.6 [facility] Comment on above: Performed By: #### L 500.3600, L503.6550, L501.0900, L100.0100, L503.6030 ####[facility] [address] [place], [address] Hematocrit (Bld) [Volume fraction] 33.0 % Low 37-47 [facility] Comment on above: Performed By: #### L 500.3600, L503.6550, L501.0900, L100.0100, L503.6030 ####[facility] [address] [place], [address] Hemoglobin (Bld) [Mass/Vol] 10.4 g/dL Low 12.0-15. 0 [facility] Comment on above: Performed By: #### L 500.3600, L503.6550, L501.0900, L100.0100, L503.6030 ####[facility] [address] [place], [address] IG% 0.300 Normal 0.0-0.9 [facility] Comment on above: Result Comment: IG% - Immature Granulocytes (promyelocytes, myelocytes and metamyelocytes) > 1% indicates that a LEFT SHIFT is Present. Performed By: #### L 500.3600, L503.6550, L501.0900, L100.0100, L503.6030 ####[facility] [address] [place], [address] Lymphocytes/100 WBC (Bld) 26.0 % Normal 19-41 [facility] Comment on above: Performed By: #### L 500.3600, L503.6550, L501.0900, L100.0100, L503.6030 ####[facility] [address] [place], [address] MCH (RBC) [Entitic mass] 30.1 pg Normal 27.0-32.0 [facility] Comment on above: Performed By: #### L 500.3600, L503.6550, L501.0900, L100.0100, L503.6030 ####[facility] [address] [place], [address] MCHC (RBC) [Mass/Vol] 31.5 g/dL Low 32-36 [facility] Comment on above: Performed By: #### L 500.3600, L503.6550, L501.0900, L100.0100, L503.6030 ####[facility] [address] [place], [address] MCV (RBC) [Entitic vol] 95.7 fL Normal 81-99 [facility] Comment on above: Performed By: #### L 500.3600, L503.6550, L501.0900, L100.0100, L503.6030 ####[facility] [address] [place], [address] Monocytes/100 WBC (Bld) 11.7 % High 0-10 [facility] Comment on above: Performed By: #### L 500.3600, L503.6550, L501.0900, L100.0100, L503.6030 ####[facility] [address] [place], [address] Neutrophils/100 WBC (Bld) 57.8 % Normal 47-70 [facility] Comment on above: Performed By: #### L 500.3600, L503.6550, L501.0900, L100.0100, L503.6030 ####[facility] [address] [place], [address] Nucleated RBC (Bld) [#/Vol] 0 10*3/uL Normal 0-5 [facility] Comment on above: Performed By: #### L 500.3600, L503.6550, L501.0900, L100.0100, L503.6030 ####[facility] [address] [place], [address] Platelet mean volume (Bld) [Entitic vol] 11.1 fL Normal 6.2-12.0 [facility] Comment on above: Performed By: #### L 500.3600, L503.6550, L501.0900, L100.0100, L503.6030 ####[facility] [address] [place], [address] Platelets (Bld) [#/Vol] 225 10*3/uL Normal 150-450 [facility] Comment on above: Performed By: #### L 500.3600, L503.6550, L501.0900, L100.0100, L503.6030 ####[facility] [address] [place], [address] RBC (Bld) [#/Vol] 3.45 10*6/uL Low 4.2-5.4 [facility] Comment on above: Performed By: #### L 500.3600, L503.6550, L501.0900, L100.0100, L503.6030 ####[facility] [address] [place], [address] RDW SD 42.9 fl Normal 35.1-43.9 [facility] Comment on above: Performed By: #### L 500.3600, L503.6550, L501.0900, L100.0100, L503.6030 ####[facility] [address] [place], [address] WBC (Bld) [#/Vol] 6.8 10*3/uL Normal 4.4-11.0 [facility] Comment on above: Performed By: #### L 500.3600, L503.6550, L501.0900, L100.0100, L503.6030 ####[facility] [address] [place], [address] Ferritinon 04-11-2024 Ferritin [Mass/Vol] 56 ng/mL Normal 8-252 [facility] Comment on above: Performed By: #### M 100.7900 #### [facility] [address] [place], [address] Iron+Iron Binding Capacityon 04-11-2024 Iron [Mass/Vol] 75 ug/dL Normal 50-170 [facility] Comment on above: Performed By: #### M 100.7900 #### [facility] [address] [place], [address] IRON SATURATION 23.1 Normal 15.0-55.0 [facility] Comment on above: Performed By: #### M 100.7900 #### [facility] [address] [place], [address] TIBC 325 ug/dL Normal 250-450 [facility] Comment on above: Performed By: #### M 100.7900 #### [facility] [address] [place], [address] Protein+Creatinine Ratio,Uri neon 04-11-2024 PROT:CRE RATIO 208 mg/g CRE High 0-200 [facility] Comment on above: Performed By: #### L 500.3600, L503.6550, L501.0900, L100.0100, L503.6030 ####[facility] [address] [place], [address] Protein (U) [Mass/Vol] 16.2 mg/dL High <11.9 [facility] Comment on above: Performed By: #### L 500.3600, L503.6550, L501.0900, L100.0100, L503.6030 ####[facility] [address] [place], [address] UR CREAT 77.80 mg/dL Normal NO RANGE EST. [facility] Comment on above: Performed By: #### L 500.3600, L503.6550, L501.0900, L100.0100, L503.6030 ####[facility] [address] [place], [address] Renal Profileon 04-11-2024 Albumin [Mass/Vol] 3.9 g/dL Normal 3.2-5.0 [facility] Comment on above: Performed By: #### L 500.3600, L503.6550, L501.0900, L100.0100, L503.6030 ####[facility] [address] [place], [address] BUN/CRE 18.7 RATIO Normal 10-20 [facility] Comment on above: Performed By: #### L 500.3600, L503.6550, L501.0900, L100.0100, L503.6030 ####[facility] [address] [place], [address] CA,Total 9.9 mg/dL Normal 8.5-10.1 [facility] Comment on above: Performed By: #### L 500.3600, L503.6550, L501.0900, L100.0100, L503.6030 ####[facility] [address] [place], [address] Chloride [Moles/Vol] 106 mmol/L Normal 98-107 [facility] Comment on above: Performed By: #### L 500.3600, L503.6550, L501.0900, L100.0100, L503.6030 ####[facility] [address] [place], [address] CO2 [Moles/Vol] 25.0 mmol/L Normal 21.0-32.0 [facility] Comment on above: Performed By: #### L 500.3600, L503.6550, L501.0900, L100.0100, L503.6030 ####[facility] [address] [place], [address] Creatinine [Mass/Vol] 2.30 mg/dL High 0.55-1.02 [facility] Comment on above: Result Comment: The validity of the calculated GFR GFRAA in patients over 70 years has not been determined. Clinical correlation is essential. Performed By: #### L 500.3600, L503.6550, L501.0900, L100.0100, L503.6030 ####[facility] [address] [place], [address] EST GFR - AA 26 mL/min Low >60 [facility] Comment on above: Result Comment: Afri can Grenadian GFR Calc Performed By: #### L 500.3600, L503.6550, L501.0900, L100.0100, L503.6030 ####[facility] [address] [place], [address] GFR/1.73 sq M.predicted among non-blacks MDRD (S/P/Bld) [Vol rate/Area] 22 mL/min/{1.73_m2} Low >60 [facility] Comment on above: Result Comment: Non- GFR Calc Performed By: #### L 500.3600, L503.6550, L501.0900, L100.0100, L503.6030 ####[facility] [address] [place], [address] Glucose [Mass/Vol] 92 mg/dL Normal 74-106 [facility] Comment on above: Performed By: #### L 500.3600, L503.6550, L501.0900, L100.0100, L503.6030 ####[facility] [address] [place], [address] Phosphate [Mass/Vol] 4.1 mg/dL Normal 2.5-4.9 [facility] Comment on above: Performed By: #### L 500.3600, L503.6550, L501.0900, L100.0100, L503.6030 ####[facility] [address] [place], [address] Potassium [Moles/Vol] 4.4 mmol/L Normal 3.5-5.1 [facility] Comment on above: Performed By: #### L 500.3600, L503.6550, L501.0900, L100.0100, L503.6030 ####[facility] [address] [place], [address] Sodium [Moles/Vol] 139 mmol/L Normal 136-145 [facility] Comment on above: Performed By: #### L 500.3600, L503.6550, L501.0900, L100.0100, L503.6030 ####[facility] [address] [place], [address] Urea nitrogen [Mass/Vol] 43 mg/dL High 7-18 [facility] Comment on above: Performed By: #### L 500.3600, L503.6550, L501.0900, L100.0100, L503.6030 ####[facility] [address] [place], [address] Kidney and Bladderon 024 Kidney and Bladder [facility] [address] [place] [address] Kidney and Bladder MR#: [id number] Acct: [id number] Name: TANJA ATKINSON DEANDRE Rep #: [id number] : 1945 F 78 From: Jorje Arellano MD PCP: Dr. Luís Rodriguez, DO Status: REG CLI Study: Kidney and Bladder Date of Exam: 04/06/24 Exam# [id number] Ordering Dr: Michel Woodall MD [id number] STUDY: RENAL ULTRASOUND - COMPLETE REASON FOR EXAM: Female, 78 years old. CYST OF KIDNEY TECHNIQUE: Ultrasound evaluation of the kidneys was performed with real-time and static carrion-scale imaging. COMPARISON: 01/06/2023 FINDINGS: RIGHT KIDNEY: Normal location of the right kidney, which is normal in size. The right kidney measures 9.1 cm. Increased echogenicity of the renal cortex consistent with advanced age. The renal cortex measures 0.9 cm. Multiple small renal cysts with the largest measuring 2 cm in the parapelvic right kidney. There are no right renal calculi. There is no right hydronephrosis. DISTAL RIGHT URETER: There is non-visualization of the distal right ureter. There is no demonstrated right ureterovesical junction calculus. There is a visualized right ureteral jet. LEFT KIDNEY: Normal location of the left kidney, which is normal in size. The left kidney measures 9.6 cm. Increased echogenicity of the renal cortex consistent with advanced age. The renal cortex measures 1.1 cm. Multiple small renal cysts with the largest measuring 1.8 cm. There are no left renal calculi. There is no left hydronephrosis. DISTAL LEFT URETER: There is non-visualization of the distal left ureter. There is no demonstrated left ureterovesical junction calculus. There is a visualized left ureteral jet. BLADDER: The distended urinary bladder has a volume of 69 ml. The empty urinary bladder has a volume of ml. There is a normal wall thickness of the distended urinary bladder. There is no demonstrated mass within the urinary bladder. There are no demonstrated bladder calculi. US/Kidney and Bladder IMPRESSION: 1. No hydronephrosis to suggest obstruction. 2. Multiple small bilateral renal cysts. Electronically Signed: Jorje Arellano MD at 14:11 EDT , CC: Dr. Luís Rodriguez, DO; Dr. 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 Normal [facility] Stool gastrointestinal hemog lobin detection by immunologic methodOrdered By: Robb Leyva on 02-04-2024 Lower GI hemoglobin IA Ql (Stl) [facility] Absolute lymphocyte countOrd ered By: Michel Woodall on 06-09-2023 Lymphocytes Auto (Unsp spec) [#/Vol] 1.96 10*3/uL 0.83-4.51 [facility] Basophil percentageOrdered B y: Michel Woodall on 06-09-2023 Basophil percentage 4.1 mg/dL 2.5-4.9 [facility] Basophils/100 WBC (Bld) 0.6 % 0-1 [facility] Chloride [Moles/Vol] 105 mmol/L 98-107 [facility] Eosinophils/100 WBC (Bld) 7.0 % 0-5 [facility] Glucose [Mass/Vol] 91 mg/dL 74-106 [facility] Neutrophils (Bld) [#/Vol] 3.3 10*3/uL 2.0-7.7 [facility] Neutrophils/100 WBC (Bld) 49.6 % 47-70 [facility] Potassium [Moles/Vol] 4.4 mmol/L 3.5-5.1 [facility] Sodium [Moles/Vol] 138 mmol/L 136-145 [facility] WBC (Bld) [#/Vol] 6.6 10*3/uL 4.4-11.0 [facility] Blood erythrocytes count (nu mber/volume)Ordered By: Michel Woodall on 06-09-2023 RBC (Bld) [#/Vol] 3.70 10*6/uL 4.2-5.4 [facility] Blood hemoglobin measurement (mass/volume)Ordered By: Michel Woodall on 06-09-2023 Hemoglobin (Bld) [Mass/Vol] 10.9 g/dL 12.0-15. 0 [facility] Blood lymphocytes/100 leukoc ytesOrdered By: Michel Woodall on 06-09-2023 Lymphocytes/100 WBC (Bld) 29.7 % 19-41 [facility] Blood monocytes/100 leukocyt esOrdered By: Michel Woodall on 06-09-2023 Monocytes/100 WBC (Bld) 12.9 % 0-10 [facility] Blood platelet mean volumeOr dered By: Michel Woodall on 06-09-2023 Platelet mean volume (Bld) [Entitic vol] 10.9 fL 6.2-12.0 [facility] Determination of erythrocyte mean corpuscular volume (MCV)Ordered By: Michel Woodall on 06-09-2023 MCV (RBC) [Entitic vol] 94.6 fL 81-99 [facility] Hematocrit Auto (Bld) [Volum e fraction]Ordered By: Michel Woodall on 06-09-2023 Hematocrit (Bld) [Volume fraction] 35.0 % 37-47 [facility] Laboratory - Chemistry and C hemistry - challengeOrdered By: Michel Woodall on 06-09-2023 CO2 [Moles/Vol] 25.0 mmol/L 21.0-32.0 [facility] Urea nitrogen/Creatinine [Mass ratio] 18.5 mg/mg 10-20 [facility] Laboratory - Hematology and Cell countsOrdered By: Michel Woodall on 06-09-2023 Erythrocyte distribution width (RBC) [Entitic vol] 44.0 fL 35.1-43.9 [facility] Erythrocyte distribution width (RBC) [Ratio] 12.7 % 11.6-14.6 [facility] Immature granulocytes/100 WBC (Bld) 0.200 % 0.0-0.9 [facility] Comment on above: IG% - Immature Granu locytes (promyelocytes, myelocytes and metamyelocytes) > 1% indicates that a LEFT SHIFT is Present. MCH (RBC) [Entitic mass] 29.5 pg 27.0-32.0 [facility] Nucleated RBC/100 WBC (Bld) [Ratio] 0 % 0-5 [facility] MCHC Auto (RBC) [Mass/Vol]Or dered By: Michel Woodall on 06-09-2023 MCHC (RBC) [Mass/Vol] 31.1 g/dL 32-36 [facility] No Panel InformationOrdered By: Michel Woodall on 06-09-2023 Estimated GFR (MDRD) Amer 24 mL/min >60 [facility] Comment on above: GFR Calc Estimated GFR (MDRD) Non-Af Amer 20 mL/min >60 [facility] Comment on above: Non- GFR Calc Parathyroid Hormone (Intact) 145.2 pg/mL 18.4-80.1 [facility] Platelets bldOrdered By: Huey Woodall on 06-09-2023 Platelets (Bld) [#/Vol] 257 10*3/uL 150-450 [facility] Serum or plasma albumin marya urement (mass/volume)Ordered By: Michel Woodall on 06-09-2023 Albumin [Mass/Vol] 4.1 g/dL 3.2-5.0 [facility] Serum or plasma calcium marya urement (mass/volume)Ordered By: Michel Woodall on 06-09-2023 Calcium [Mass/Vol] 9.9 mg/dL 8.5-10.1 [facility] Serum or plasma creatinine m easurement (mass/volume)Ordered By: Michel Woodall on 06-09-2023 Creatinine [Mass/Vol] 2.48 mg/dL 0.55-1.02 [facility] Comment on above: The validity of the calculated GFR & GFRAA in patients over 70 years has not been determined. Clinical correlation is essential. Serum or plasma urea nitroge n measurement (mass/volume)Ordered By: Michel Woodall on 06-09-2023 Urea nitrogen [Mass/Vol] 46 mg/dL 7-18 [facility] Absolute lymphocyte countOrd ered By: Dr. Woodall on 12-15-2022 Lymphocytes Auto (Unsp spec) [#/Vol] 1.83 10*3/uL 0.83-4.51 [facility] Basophil percentageOrdered B y: Dr. Woodall on 12-15-2022 Basophils/100 WBC (Bld) 0.7 % 0-1 [facility] Chloride [Moles/Vol] 104 mmol/L 98-107 [facility] Eosinophils/100 WBC (Bld) 3.8 % 0-5 [facility] Glucose [Mass/Vol] 89 mg/dL 74-106 [facility] Neutrophils (Bld) [#/Vol] 3.8 10*3/uL 2.0-7.7 [facility] Neutrophils/100 WBC (Bld) 55.4 % 47-70 [facility] Potassium [Moles/Vol] 3.7 mmol/L 3.5-5.1 [facility] Sodium [Moles/Vol] 138 mmol/L 136-145 [facility] WBC (Bld) [#/Vol] 6.8 10*3/uL 4.4-11.0 [facility] Blood erythrocytes count (nu mber/volume)Ordered By: Dr. Woodall on 12-15-2022 RBC (Bld) [#/Vol] 3.74 10*6/uL 4.2-5.4 [facility] Blood hemoglobin measurement (mass/volume)Ordered By: Dr. Woodall on 12-15-2022 Hemoglobin (Bld) [Mass/Vol] 11.0 g/dL 12.0-15. 0 [facility] Blood lymphocytes/100 leukoc ytesOrdered By: Dr. Woodall on 12-15-2022 Lymphocytes/100 WBC (Bld) 26.8 % 19-41 [facility] Blood monocytes/100 leukocyt esOrdered By: Dr. Woodall on 12-15-2022 Monocytes/100 WBC (Bld) 13.2 % 0-10 [facility] Blood platelet mean volumeOr dered By: Dr. Woodall on 12-15-2022 Platelet mean volume (Bld) [Entitic vol] 10.3 fL 6.2-12.0 [facility] Determination of erythrocyte mean corpuscular volume (MCV)Ordered By: Dr. Woodall on 12-15-2022 MCV (RBC) [Entitic vol] 94.9 fL 81-99 [facility] Hematocrit Auto (Bld) [Volum e fraction]Ordered By: Dr. Woodall on 12-15-2022 Hematocrit (Bld) [Volume fraction] 35.5 % 37-47 [facility] Laboratory - Chemistry and C hemistry - challengeOrdered By: Dr. Woodall on 12-15-2022 CO2 [Moles/Vol] 28.0 mmol/L 21.0-32.0 [facility] Urea nitrogen/Creatinine [Mass ratio] 21.1 mg/mg 10-20 [facility] Laboratory - Hematology and Cell countsOrdered By: Dr. Woodall on 12-15-2022 Erythrocyte distribution width (RBC) [Entitic vol] 44.1 fL 35.1-43.9 [facility] Erythrocyte distribution width (RBC) [Ratio] 12.7 % 11.6-14.6 [facility] Immature granulocytes/100 WBC (Bld) 0.100 % 0.0-0.9 [facility] Comment on above: IG% - Immature Granu locytes (promyelocytes, myelocytes and metamyelocytes) > 1% indicates that a LEFT SHIFT is Present. MCH (RBC) [Entitic mass] 29.4 pg 27.0-32.0 [facility] Nucleated RBC/100 WBC (Bld) [Ratio] 0 % 0-5 [facility] MCHC Auto (RBC) [Mass/Vol]Or dered By: Dr. Woodall on 12-15-2022 MCHC (RBC) [Mass/Vol] 31.0 g/dL 32-36 [facility] No Panel InformationOrdered By: Dr. Woodall on 12-15-2022 Estimated GFR (MDRD) Amer 27 mL/min >60 [facility] Comment on above: GFR Calc Estimated GFR (MDRD) Non-Af Amer 22 mL/min >60 [facility] Comment on above: Non- GFR Calc Platelets bldOrdered By: Dr. Woodall on 12-15-2022 Platelets (Bld) [#/Vol] 250 10*3/uL 150-450 [facility] Serum or plasma calcium marya urement (mass/volume)Ordered By: Dr. Woodall on 12-15-2022 Calcium [Mass/Vol] 9.8 mg/dL 8.5-10.1 [facility] Serum or plasma creatinine m easurement (mass/volume)Ordered By: Dr. Woodall on 12-15-2022 Creatinine [Mass/Vol] 2.28 mg/dL 0.55-1.02 [facility] Comment on above: The validity of the calculated GFR & GFRAA in patients over 70 years has not been determined. Clinical correlation is essential. Serum or plasma urea nitroge n measurement (mass/volume)Ordered By: Dr. Woodall on 12-15-2022 Urea nitrogen [Mass/Vol] 48 mg/dL 7-18 [facility] Thin prep Papanicolaou smear with manual screeningOrdered By: Dr. Woodall on 12-15-2022 Thin prep Papanicolaou smear with manual screening 6 5-15 [facility] Urine creatinine measurement (mass/volume)Ordered By: Dr. Woodall on 12-15-2022 Creatinine (U) [Mass/Vol] 153.00 mg/dL NO RANGE EST. [facility] Urine protein measurement (m ass/volume)Ordered By: Dr. Woodall on 12-15-2022 Protein (U) [Mass/Vol] 16.9 mg/dL 0.0-11.8 [facility] Urine protein/creatinine mas s ratioOrdered By: Dr. Woodall on 12-15-2022 Protein/Creatinine (U) [Mass ratio] 110 mg/g CRE 0-200 [facility] Absolute lymphocyte countOrd ered By: Robb Leyva on 10-07-2022 Lymphocytes Auto (Unsp spec) [#/Vol] 1.55 10*3/uL 0.83-4.51 [facility] Albumin Elph [Mass/Vol]Order ed By: Robb Leyva on 10-07-2022 Albumin [Mass/Vol] 4.0 g/dL 2.9-4.4 [facility] Atypical perinuclear antineu trophil cytoplasmic antibodies measurementOrdered By: Robb Leyva on 10-07-2022 Neutrophil cytoplasmic Ab.perinuclear.atypical IF (S) [Titer] <1:20 titer Neg:<1:20 [facility] Comment on above: The atypical pANCA p attern has been observed in asignificant percentage of patients with ulcerative colitis,primary sclerosing cholangitis and autoimmune hepatitis.Performed at: - [facility] [id number] Director: Alexi Lam PhD, Phone: [phone] at: - [facility] [id number] Director: Misty Sanchez MD, Phone: [phone] Basophil percentageOrdered B y: Robb Leyva on 10-07-2022 Basophil percentage < 0.2 AI 0.0-0.9 [facility] Basophils/100 WBC (Bld) 0.6 % 0-1 [facility] Bilirubin [Mass/Vol] 0.40 mg/dL 0.20-1.00 [facility] Comment on above: For patients on eltr ombopag therapy, use of Dimension [place] TBIL is not recommended. Chloride [Moles/Vol] 103 mmol/L 98-107 [facility] Eosinophils/100 WBC (Bld) 4.1 % 0-5 [facility] Glucose [Mass/Vol] 93 mg/dL 74-106 [facility] LDH [Catalytic activity/Vol] 201 U/L 84-246 [facility] Neutrophils (Bld) [#/Vol] 3.9 10*3/uL 2.0-7.7 [facility] Neutrophils/100 WBC (Bld) 59.0 % 47-70 [facility] Potassium [Moles/Vol] 4.0 mmol/L 3.5-5.1 [facility] Protein [Mass/Vol] 8.0 g/dL 6.4-8.2 [facility] Sodium [Moles/Vol] 137 mmol/L 136-145 [facility] WBC (Bld) [#/Vol] 6.5 10*3/uL 4.4-11.0 [facility] Blood erythrocytes count (nu mber/volume)Ordered By: Robb Leyva on 10-07-2022 RBC (Bld) [#/Vol] 3.66 10*6/uL 4.2-5.4 [facility] Blood hemoglobin measurement (mass/volume)Ordered By: Robb Leyva on 10-07-2022 Hemoglobin (Bld) [Mass/Vol] 11.1 g/dL 12.0-15. 0 [facility] Blood lymphocytes/100 leukoc ytesOrdered By: Robb Leyva on 10-07-2022 Lymphocytes/100 WBC (Bld) 23.8 % 19-41 [facility] Blood monocytes/100 leukocyt esOrdered By: Robb Leyva on 10-07-2022 Monocytes/100 WBC (Bld) 12.0 % 0-10 [facility] Blood platelet mean volumeOr dered By: Robb Leyva on 10-07-2022 Platelet mean volume (Bld) [Entitic vol] 10.9 fL 6.2-12.0 [facility] Determination of erythrocyte mean corpuscular volume (MCV)Ordered By: Robb Leyva on 10-07-2022 MCV (RBC) [Entitic vol] 94.3 fL 81-99 [facility] Erythrocyte sedimentation ra teOrdered By: Robb Leyva on 10-07-2022 ESR (Bld) [Velocity] 36 mm/h 0-30 [facility] Hematocrit Auto (Bld) [Volum e fraction]Ordered By: Robb Leyva on 10-07-2022 Hematocrit (Bld) [Volume fraction] 34.5 % 37-47 [facility] Interpretation of serum or p lasma protein pattern by immunofixation (narrative resultOrdered By: Robb Leyva on 10-07-2022 Protein Fractions Immunofixation Jan [Interp] See comment [facility] Comment on above: NOT OBSERVED Laboratory - Chemistry and C hemistry - challengeOrdered By: Robb Leyva on 10-07-2022 ALP [Catalytic activity/Vol] 59 U/L 45-117 [facility] ALT [Catalytic activity/Vol] 17 U/L 13-56 [facility] CO2 [Moles/Vol] 27.0 mmol/L 21.0-32.0 [facility] Urea nitrogen/Creatinine [Mass ratio] 23.0 mg/mg 10-20 [facility] Laboratory - Hematology and Cell countsOrdered By: Robb Leyva on 10-07-2022 Erythrocyte distribution width (RBC) [Entitic vol] 41.2 fL 35.1-43.9 [facility] Erythrocyte distribution width (RBC) [Ratio] 11.9 % 11.6-14.6 [facility] Immature granulocytes/100 WBC (Bld) 0.500 % 0.0-0.9 [facility] Comment on above: IG% - Immature Granu locytes (promyelocytes, myelocytes and metamyelocytes) > 1% indicates that a LEFT SHIFT is Present. MCH (RBC) [Entitic mass] 30.3 pg 27.0-32.0 [facility] Nucleated RBC/100 WBC (Bld) [Ratio] 0 % 0-5 [facility] Auto (RBC) [Mass/Vol]Or dered By: Robb Leyva on 10-07-2022 MCHC (RBC) [Mass/Vol] 32.2 g/dL 32-36 [facility] No Panel InformationOrdered By: Robb Leyva on 10-07-2022 Stool Calprotectin 136 ug/g 0-120 [facility] Comment on above: Concentration Interp retation Follow-Up<16 - 50 ug/g Normal None>50 -120 ug/g Borderline Re-evaluate in 4-6 weeks >120 ug/g Abnormal Repeat as clinically indicatedPerformed at: [facility] [id number] Director: Misty Sanchez MD, Phone: [phone] Addendum Document Comment . [facility] Comment on above: Protein electrophore sis scan will follow via computer,mail, or recycle coordinator delivery. Centrome[employer] B Antibody <0.2 AI 0.0-0.9 [facility] Endomysial IgA Antibody Negative Negative [facility] Estimated GFR (MDRD) Amer 24 mL/min >60 [facility] Comment on above: GFR Calc Estimated GFR (MDRD) Non-Af Amer 20 mL/min >60 [facility] Comment on above: Non- GFR Calc Immunoglobulin E 12 IU/mL 6-495 [facility] Miscellaneous Test See comment [facility] Comment on above: TEST RESULT LIMITSIB D Expanded Panel Oh 43 units 0-50 Negative <45 Equivocal 45 - 50 Positive >50 ACCA 12 units 0-90 Negative <80 Equivocal 80 - 90 Positive >90 ALCA 24 units 0-60 Negative <55 Equivocal 55 - 60 Positive >60 AMCA 24 units 0-100 Negative < 90 Equivocal 90 - 100 Positive >100 This test was developed and its performance characteristics determined by [facility]. It has not been cleared or approved by the Food and Drug Administration. The FDA has determined that such clearance or approval is not necessary.Atypical pANCA Negative Negative Comments Pattern is not suggestive of Inflammatory Bowel Disease TESTING PERFORMED AT [facility]. ORIGINAL REPORT ON FILE IN LAB CONTAINS ADDITIONAL TEST SITE INFORMATION. T[employer]ATING [employer]INEER Antibody <0.2 AI 0.0-0.9 [facility] Platelets bldOrdered By: Ger Leyva on 10-07-2022 Platelets (Bld) [#/Vol] 235 10*3/uL 150-450 [facility] Serum DNA double strand anti body assay (units/volume)Ordered By: Robb Leyva on 10-07-2022 DNA double strand Ab Qn (S) [IU]/mL 0-9 [facility] Comment on above: Negative <5 Equivoca l 5 - 9 Positive >9 Serum Emily-1 antibody assay (u nits/volume)Ordered By: Robb Leyva on 10-07-2022 Emily-1 extractable nuclear Ab Qn (S) <0.2 AI 0.0-0.9 [facility] Serum Scl-70 extractable nuc lear antibody assay (units/volume)Ordered By: Robb Leyva on 10-07-2022 SCL-70 extractable nuclear Ab Qn (S) <0.2 AI 0.0-0.9 [facility] Serum Beck extractable nucl ear antibody detectionOrdered By: Robb Leyva on 10-07-2022 Beck extractable nuclear Ab Ql (S) <0.2 AI 0.0-0.9 [facility] Serum [id number] measu rement by electrophoresisOrdered By: Robb Leyva on 10-07-2022 Alpha 1 globulin Elph [Mass/Vol] 0.3 g/dL 0.0-0.4 [facility] Alpha 1 globulin Elph [Mass/Vol] 0.9 g/dL 0.4-1.0 [facility] Serum classic neutrophil cyt oplasmic antibody assay (units/volume)Ordered By: Robb Leyva on 10-07-2022 Neutrophil cytoplasmic Ab.classic Qn (S) <1:20 titer Neg:<1:20 [facility] Serum globulin measurement ( mass/volume)Ordered By: Robb Leyva on 10-07-2022 Globulin (S) [Mass/Vol] 3.5 g/dL 2.2-3.9 [facility] Serum or plasma C reactive p rotein measurement (mass/volume)Ordered By: Robb Leyva on 10-07-2022 CRP [Mass/Vol] 3.97 mg/L 0.0-3.0 [facility] Comment on above: C-Reactive Protein ( CRP) provides useful information for thediagnosis, therapy and monitoring of inflammatory processesand associated diseases. For the evaluation of Relative Riskfor Cardiovascular Disease, a High Sensitivity CRP (HSCRP)should be ordered. Serum or plasma IgA measurem ent (mass/volume)Ordered By: Robb Leyva on 10-07-2022 IgA [Mass/Vol] 141 mg/dL 64-422 [facility] Serum or plasma IgG measurem ent (mass/volume)Ordered By: Robb Leyva on 10-07-2022 IgG [Mass/Vol] 1404 mg/dL [id number] [facility] Serum or plasma IgM measurem ent (mass/volume)Ordered By: Robb Leyva on 10-07-2022 IgM [Mass/Vol] 135 mg/dL 26-217 [facility] Serum or plasma albumin marya urement (mass/volume)Ordered By: Robb Leyva on 10-07-2022 Albumin [Mass/Vol] 3.9 g/dL 3.2-5.0 [facility] Serum or plasma albumin/glob ulin mass ratioOrdered By: Robb Leyva on 10-07-2022 Albumin/Globulin [Mass ratio] 1.0 {ratio} 0.9-2.4 [facility] Serum or plasma beta globuli n measurement by electrophoresis (mass/volume)Ordered By: Robb Leyva on 10-07-2022 Beta globulin Elph [Mass/Vol] 1.0 g/dL 0.7-1.3 [facility] Serum or plasma calcium marya urement (mass/volume)Ordered By: Robb Leyva on 10-07-2022 Calcium [Mass/Vol] 10.2 mg/dL 8.5-10.1 [facility] Serum or plasma creatinine m easurement (mass/volume)Ordered By: Robb Leyva on 10-07-2022 Creatinine [Mass/Vol] 2.48 mg/dL 0.55-1.02 [facility] Comment on above: The validity of the calculated GFR & GFRAA in patients over 70 years has not been determined. Clinical correlation is essential. Serum or plasma gamma globul in measurement by electrophoresis (mass/volume)Ordered By: Robb Leyva on 10-07-2022 Gamma globulin Elph [Mass/Vol] 1.3 g/dL 0.4-1.8 [facility] Serum or plasma immunoelectr ophoresis interpretation (nominal result)Ordered By: Robb Leyva on 10-07-2022 Interpretation IEP [Interp] Comment . [facility] Comment on above: No monoclonality det ected. Serum or plasma urea nitroge n measurement (mass/volume)Ordered By: Robb Leyva on 10-07-2022 Urea nitrogen [Mass/Vol] 57 mg/dL 7-18 [facility] Serum perinuclear neutrophil cytoplasmic antibody titer by immunofluorescenceOrdered By: Robb Leyva on 10-07-2022 Neutrophil cytoplasmic Ab.perinuclear IF (S) [Titer] <1:20 titer Neg:<1:20 [facility] Comment on above: The presence of posi tive fluorescence exhibiting P-ANCA orC-ANCA patterns alone is not specific for the diagnosis ofWegener's Granulomatosis (WG) or microscopic polyangiitis.Decisions about treatment should not be based solely onANCA IFA results. The International ANCA Group Consensusrecommends follow up testing of positive sera with both SC-3 and MPO-ANCA enzyme immunoassays. As many as 5% serumsamples are positive only by EIA. Ref. AM J Clin [place]7613;111:507-513. Serum tissue transglutaminas e IgA antibody assay (units/volume)Ordered By: Robb Leyva on 10-07-2022 tTG IgA Qn (S) <2 U/mL 0-3 [facility] Comment on above: Negative 0 - 3 Weak Positive 4 - 10 Positive >10 Tissue Transglutaminase (tTG) has been identified as the endomysial antigen. Studies have demonstr- ated that endomysial IgA antibodies have over 99% specificity for gluten sensitive enteropathy. Stool lactoferrin detection by immunoassayOrdered By: Robb Leyva on 10-07-2022 Lactoferrin IA Ql (Stl) [facility] Thin prep Papanicolaou smear with manual screeningOrdered By: Robb Leyva on 10-07-2022 Thin prep Papanicolaou smear with manual screening 20 U/L 15-37 [facility] Thin prep Papanicolaou smear with manual screening 7 5-15 [facility] Thin prep Papanicolaou smear with manual screening 1.2 0.7-1.7 [facility] Total protein bloodOrdered B y: Robb Leyva on 10-07-2022 Protein [Mass/Vol] 7.5 g/dL 6.0-8.5 [facility] Absolute lymphocyte countOrd ered By: Dr. Rodriguez on 08-20-2022 Lymphocytes Auto (Unsp spec) [#/Vol] 2.31 10*3/uL 0.83-4.51 [facility] Basophil percentageOrdered B y: Dr. Rodriguez on 08-20-2022 Basophils/100 WBC (Bld) 0.7 % 0-1 [facility] Bilirubin [Mass/Vol] 0.30 mg/dL 0.20-1.00 [facility] Comment on above: For patients on eltr ombopag therapy, use of Dimension [place] TBIL is not recommended. Chloride [Moles/Vol] 103 mmol/L 98-107 [facility] Cholesterol [Mass/Vol] 152 mg/dL <200 [facility] Comment on above: <200 mg/dL Desirable 200-240 mg/dL Borderline >240 mg/dL High Risk Eosinophils/100 WBC (Bld) 3.2 % 0-5 [facility] Glucose [Mass/Vol] 91 mg/dL 74-106 [facility] Neutrophils (Bld) [#/Vol] 5.0 10*3/uL 2.0-7.7 [facility] Neutrophils/100 WBC (Bld) 57.1 % 47-70 [facility] Potassium [Moles/Vol] 3.8 mmol/L 3.5-5.1 [facility] Protein [Mass/Vol] 8.0 g/dL 6.4-8.2 [facility] Sodium [Moles/Vol] 140 mmol/L 136-145 [facility] Triglyceride [Mass/Vol] 332 mg/dL <199 [facility] Comment on above: The drugs N-Acetylcy steine and Metamizole may falsely depress this assay.Serum Triglycerides Reference Interval Normal <150 mg/dL Borderline high 150 - 199 mg/dL High 200 - 499 mg/dL Very High > or = 500 mg/dL WBC (Bld) [#/Vol] 8.8 10*3/uL 4.4-11.0 [facility] Blood erythrocytes count (nu mber/volume)Ordered By: Dr. Rodriguez on 08-20-2022 RBC (Bld) [#/Vol] 3.39 10*6/uL 4.2-5.4 [facility] Blood hemoglobin measurement (mass/volume)Ordered By: Dr. Rodriguez on 08-20-2022 Hemoglobin (Bld) [Mass/Vol] 10.3 g/dL 12.0-15. 0 [facility] Blood lymphocytes/100 leukoc ytesOrdered By: Dr. Rodriguez on 08-20-2022 Lymphocytes/100 WBC (Bld) 26.3 % 19-41 [facility] Blood monocytes/100 leukocyt esOrdered By: Dr. Rodriguez on 08-20-2022 Monocytes/100 WBC (Bld) 12.5 % 0-10 [facility] Blood platelet mean volumeOr dered By: Dr. Rodriguez on 08-20-2022 Platelet mean volume (Bld) [Entitic vol] 10.7 fL 6.2-12.0 [facility] Determination of erythrocyte mean corpuscular volume (MCV)Ordered By: Dr. Rodriguez on 08-20-2022 MCV (RBC) [Entitic vol] 99.1 fL 81-99 [facility] Hematocrit Auto (Bld) [Volum e fraction]Ordered By: Dr. Rodriguez on 08-20-2022 Hematocrit (Bld) [Volume fraction] 33.6 % 37-47 [facility] Laboratory - Chemistry and C hemistry - challengeOrdered By: Dr. Rodriguez on 08-20-2022 ALP [Catalytic activity/Vol] 64 U/L 45-117 [facility] ALT [Catalytic activity/Vol] 20 U/L 13-56 [facility] CO2 [Moles/Vol] 29.0 mmol/L 21.0-32.0 [facility] Globulin (S) [Mass/Vol] 4.0 g/dL 2.2-4.2 [facility] Urea nitrogen/Creatinine [Mass ratio] 19.2 mg/mg 10-20 [facility] Laboratory - Hematology and Cell countsOrdered By: Dr. Rodriguez on 08-20-2022 Erythrocyte distribution width (RBC) [Entitic vol] 45.3 fL 35.1-43.9 [facility] Erythrocyte distribution width (RBC) [Ratio] 12.5 % 11.6-14.6 [facility] Immature granulocytes/100 WBC (Bld) 0.200 % 0.0-0.9 [facility] Comment on above: IG% - Immature Granu locytes (promyelocytes, myelocytes and metamyelocytes) > 1% indicates that a LEFT SHIFT is Present. MCH (RBC) [Entitic mass] 30.4 pg 27.0-32.0 [facility] Nucleated RBC/100 WBC (Bld) [Ratio] 0 % 0-5 [facility] MCHC Auto (RBC) [Mass/Vol]Or dered By: Dr. Rodriguez on 08-20-2022 MCHC (RBC) [Mass/Vol] 30.7 g/dL 32-36 [facility] No Panel InformationOrdered By: Dr. Rodriguez on 08-20-2022 Estimated GFR (MDRD) Amer 27 mL/min >60 [facility] Comment on above: GFR Calc Estimated GFR (MDRD) Non-Af Amer 22 mL/min >60 [facility] Comment on above: Non- GFR Calc Platelets bldOrdered By: Dr. Rodriguez on 08-20-2022 Platelets (Bld) [#/Vol] 274 10*3/uL 150-450 [facility] Serum or plasma albumin marya urement (mass/volume)Ordered By: Dr. Rodriguez on 08-20-2022 Albumin [Mass/Vol] 4.0 g/dL 3.2-5.0 [facility] Serum or plasma albumin/glob ulin mass ratioOrdered By: Dr. Rodriguez on 08-20-2022 Albumin/Globulin [Mass ratio] 1.0 {ratio} 0.9-2.4 [facility] Serum or plasma calcium marya urement (mass/volume)Ordered By: Dr. Rodriguez on 08-20-2022 Calcium [Mass/Vol] 9.7 mg/dL 8.5-10.1 [facility] Serum or plasma cholesterol in HDL measurement (mass/volume)Ordered By: Dr. Rodriguez on 08-20-2022 Cholesterol in HDL [Mass/Vol] 37 mg/dL >40 [facility] Comment on above: The drugs N-Acetylcy steine and Metamizole may falsely depress this assay. Reference Range HDL <40 mg/dL Low HDL Cholesterol HDL >or= 60 mg/dL High HDL Cholesterol Serum or plasma cholesterol in VLDL measurement (mass/volume)Ordered By: Dr. Rodriguez on 08-20-2022 Cholesterol in VLDL [Mass/Vol] 66 mg/dL 5-40 [facility] Serum or plasma creatinine m easurement (mass/volume)Ordered By: Dr. Rodriguez on 08-20-2022 Creatinine [Mass/Vol] 2.24 mg/dL 0.55-1.02 [facility] Comment on above: The validity of the calculated GFR & GFRAA in patients over 70 years has not been determined. Clinical correlation is essential. Serum or plasma low density lipoprotein (LDL) cholesterol measurement (mass/volume)Ordered By: Dr. Rodriguez on 08-20-2022 Cholesterol in LDL [Mass/Vol] 49 mg/dL 0-130 [facility] Serum or plasma urea nitroge n measurement (mass/volume)Ordered By: Dr. Rodriguez on 08-20-2022 Urea nitrogen [Mass/Vol] 43 mg/dL 7-18 [facility] Thin prep Papanicolaou smear with manual screeningOrdered By: Dr. Rodriguez on 08-20-2022 Thin prep Papanicolaou smear with manual screening 21 U/L 15-37 [facility] Thin prep Papanicolaou smear with manual screening 8 5-15 [facility] No Panel Informationon 04-25 Stool Pancreatic Elastase 325 >200 [facility] Work Phone: Comment on above: Result Units: ug [place] st./g Severe Pancreatic Insufficiency: <100 Moderate Pancreatic Insufficiency: 100 - 200 Normal: >200Performed at: - [facility] [address] [id number] Director: Misty Sanchez MD, Phone: [phone] Absolute lymphocyte counton 04-15-2022 Lymphocytes Auto (Unsp spec) [#/Vol] 0.66 10*3/uL 0.83-4.51 [facility] Work Phone: Basophil percentageon 2021 Basophils/100 WBC (Bld) 0.2 % 0-1 [facility] Work Phone: Eosinophils/100 WBC (Bld) 0.1 % 0-5 [facility] Work Phone: Neutrophils (Bld) [#/Vol] 8.2 10*3/uL 2.0-7.7 [facility] Work Phone: Neutrophils/100 WBC (Bld) 83.9 % 47-70 [facility] Work Phone: WBC (Bld) [#/Vol] 9.8 10*3/uL 4.4-11.0 [facility] Work Phone: [phone] Blood erythrocytes count (nu mber/volume)on 04-15-2022 RBC (Bld) [#/Vol] 3.70 10*6/uL 4.2-5.4 [facility] Work Phone: Blood hemoglobin measurement (mass/volume)on 04-15-2022 Hemoglobin (Bld) [Mass/Vol] 11.0 g/dL 12.0-15. 0 [facility] Work Phone: Blood lymphocytes/100 leukoc yteson 04-15-2022 Lymphocytes/100 WBC (Bld) 6.8 % 19-41 [facility] Work Phone: Blood manual differential co mment interpretation (narrative result)on 04-15-2022 Manual differential comment Jan (Bld) [Interp] SCANNED [facility] Work Phone: Blood monocytes/100 leukocyt eson 04-15-2022 Monocytes/100 WBC (Bld) 8.8 % 0-10 [facility] Work Phone: Blood platelet mean volumeon 04-15-2022 Platelet mean volume (Bld) [Entitic vol] 11.7 fL 6.2-12.0 [facility] Work Phone: Determination of erythrocyte mean corpuscular volume (MCV)on 04-15-2022 MCV (RBC) [Entitic vol] 94.6 fL 81-99 [facility] Work Phone: Erythrocyte sedimentation ra jose 04-15-2022 ESR (Bld) [Velocity] 19 mm[facility]: Hematocrit Auto (Bld) [Volum e fraction]on 04-15-2022 Hematocrit (Bld) [Volume fraction] 35.0 % 37-47 [facility] Work Phone: Laboratory - Hematology and Cell countson 04-15-2022 Erythrocyte distribution width (RBC) [Entitic vol] 47.3 fL 35.1-43.9 [facility] Work Phone: Erythrocyte distribution width (RBC) [Ratio] 13.7 % 11.6-14.6 [facility] Work Phone: Immature granulocytes/100 WBC (Bld) 0.200 % 0.0-0.9 [facility] Work Phone: Comment on above: IG% - Immature Granu locytes (promyelocytes, myelocytes and metamyelocytes) > 1% indicates that a LEFT SHIFT is Present. MCH (RBC) [Entitic mass] 29.7 pg 27.0-32.0 [facility] Work Phone: Nucleated RBC/100 WBC (Bld) [Ratio] 0 % 0-5 [facility] Work Phone: MCHC Auto (RBC) [Mass/Vol]on 04-15-2022 MCHC (RBC) [Mass/Vol] 31.4 g/dL 32-36 [facility] Work Phone: No Panel Informationon 04-15 Stool Calprotectin 1376 ug/g 0-120 [facility] Work Phone: Comment on above: Concentration Interp retation Follow-Up<16 - 50 ug/g Normal None>50 -120 ug/g Borderline Re-evaluate in 4-6 weeks >120 ug/g Abnormal Repeat as clinically indicatedPerformed at: BN - [facility] [address] [id number] Director: Misty Sanchez MD, Phone: [phone] Endomysial IgA Antibody Negative Negative [facility] Work Phone: Platelets bldon 04-15-2022 Platelets (Bld) [#/Vol] 249 10*3/uL 150-450 [facility] Work Phone: Serum IgA measurement (units /volume)on 04-15-2022 IgA Qn (S) 148 mg/dL 64-422 [facility] Work Phone: Comment on above: Performed at: [employer] [facility] [employer] [address] [id number] Director: Alexi Lam PhD, Phone: [phone] Serum or plasma C reactive p rotein measurement (mass/volume)on 04-15-2022 CRP [Mass/Vol] 69.70 mg/L 0.0-3.0 [facility] Work Phone: Comment on above: C-Reactive Protein ( CRP) provides useful information for thediagnosis, therapy and monitoring of inflammatory processesand associated diseases. For the evaluation of Relative Riskfor Cardiovascular Disease, a High Sensitivity CRP (HSCRP)should be ordered. Serum tissue transglutaminas e IgA antibody assay (units/volume)on 04-15-2022 tTG IgA Qn (S) <2 U/mL 0-3 [facility] Work Phone: Comment on above: Negative 0 - 3 Weak Positive 4 - 10 Positive >10 Tissue Transglutaminase (tTG) has been identified as the endomysial antigen. Studies have demonstr- ated that endomysial IgA antibodies have over 99% specificity for gluten sensitive enteropathy. Absolute lymphocyte counton 03-26-2022 Lymphocytes Auto (Unsp spec) [#/Vol] 1.26 10*3/uL 0.83-4.51 [facility] Work Phone: Basophil percentageon 2021 Basophils/100 WBC (Bld) 0.2 % 0-1 [facility] Work Phone: Bilirubin [Mass/Vol] 0.40 mg/dL 0.20-1.00 [facility] Work Phone: Comment on above: For patients on eltr ombopag therapy, use of [employer] [place] TBIL is not recommended. Chloride [Moles/Vol] 100 mmol/L 98-107 [facility] Work Phone: Eosinophils/100 WBC (Bld) 1.4 % 0-5 [facility] Work Phone: Glucose [Mass/Vol] 102 mg/dL 74-106 [facility] Work Phone: Comment on above: Fasting Glucose resu lt from 100 to 125 mg/dL suggests IMPAIRED HOMEOSTASIS per A.D.A. criteria. Lactate [Moles/Vol] 0.9 mmol/L 0.4-2.0 [facility] Work Phone: Neutrophils (Bld) [#/Vol] 9.7 10*3/uL 2.0-7.7 [facility] Work Phone: Neutrophils/100 WBC (Bld) 77.0 % 47-70 [facility] Work Phone: Potassium [Moles/Vol] 3.5 mmol/L 3.5-5.1 [facility] Work Phone: Comment on above: Moderate Hemolysis, Result may be falsely increased. Protein [Mass/Vol] 8.5 g/dL 6.4-8.2 [facility] Work Phone: [phone] Sodium [Moles/Vol] 133 mmol/L 136-145 [facility] Work Phone: WBC (Bld) [#/Vol] 12.6 10*3/uL 4.4-11.0 [facility] Work Phone: Basophil percentage 5-10 SEEN /hpf 0-5 [facility] Work Phone: Bilirubin Test strip Ql (U)o n 03-26-2022 Bilirubin Ql (U) Negative Negative [facility] Work Phone: Blood erythrocytes count (nu mber/volume)on 03-26-2022 RBC (Bld) [#/Vol] 3.96 10*6/uL 4[facility]2-5.4 [facility] Blood hemoglobin measurement (mass/volume)on 03-26-2022 Hemoglobin (Bld) [Mass/Vol] 11.8 g/dL 12.0-15. 0 [facility] Work Phone: Blood lymphocytes/100 leukoc yteson 03-26-2022 Lymphocytes/100 WBC (Bld) 10.0 % 19-41 [facility] Work Phone: Blood monocytes/100 leukocyt eson 03-26-2022 Monocytes/100 WBC (Bld) 11.0 % 0-10 [facility] Work Phone: Blood platelet mean volumeon 03-26-2022 Platelet mean volume (Bld) [Entitic vol] 11.1 fL 6.2-12.0 [facility] Work Phone: Determination of erythrocyte mean corpuscular volume (MCV)on 03-26-2022 MCV (RBC) [Entitic vol] 94.2 fL 81-99 [facility] Work Phone: Direct bilirubinon 2 Bilirubin.direct [Mass/Vol] 0.10 mg/dL 0.00-0.3 0 [facility] Work Phone: Hematocrit Auto (Bld) [Volum e fraction]on 03-26-2022 Hematocrit (Bld) [Volume fraction] 37.3 % 37-47 [facility] Work Phone: Ketones Test strip Ql (U)on 03-26-2022 Ketones Ql (U) Negative Negative [facility] Work Phone: Laboratory - Chemistry and C hemistry - challengeon 03-26-2022 ALP [Catalytic activity/Vol] 67 U/L 45-117 [facility] Work Phone: [phone] ALT [Catalytic activity/Vol] 19 U/L 13-56 [facility] Work Phone: CO2 [Moles/Vol] 24.0 mmol/L 21.0-32.0 [facility] Work Phone: Globulin (S) [Mass/Vol] 4.5 g/dL 2.2-4.2 [facility] Work Phone: Urea nitrogen/Creatinine [Mass ratio] 17.3 mg/mg 10-20 [facility] Work Phone: Laboratory - Hematology and Cell countson 03-26-2022 Erythrocyte distribution width (RBC) [Entitic vol] 44.2 fL 35.1-43.9 [facility] Work Phone: Erythrocyte distribution width (RBC) [Ratio] 12.8 % 11.6-14.6 [facility] Work Phone: Immature granulocytes/100 WBC (Bld) 0.400 % 0.0-0.9 [facility] Work Phone: Comment on above: IG% - Immature Granu locytes (promyelocytes, myelocytes and metamyelocytes) > 1% indicates that a LEFT SHIFT is Present. MCH (RBC) [Entitic mass] 29.8 pg 27.0-32.0 [facility] Work Phone: Nucleated RBC/100 WBC (Bld) [Ratio] 0 % 0-5 [facility] Work Phone: MCHC Auto (RBC) [Mass/Vol]on 03-26-2022 MCHC (RBC) [Mass/Vol] 31.6 g/dL 32-36 [facility] Work Phone: Mucus LM Ql (Urine sed)on Mucus Ql (Urine sed) 0 SEEN /hpf [facility] Work Phone: Nitrite Test strip Ql (U)on 03-26-2022 Nitrite Ql (U) Negative Negative [facility] Work Phone: No Panel Informationon 03-26 Estimated Creatinine Clearance Calc 13.24 ml/min [facility] Work Phone: Estimated GFR (MDRD) Amer 21 mL/min >60 [facility] Work Phone: Comment on above: GFR Calc Estimated GFR (MDRD) Non-Af Amer 18 mL/min >60 [facility] Work Phone: Comment on above: Non- GFR Calc Platelets bldon 03-26-2022 Platelets (Bld) [#/Vol] 251 10*3/uL 150-450 [facility] Work Phone: Protein Test strip Ql (U)on 03-26-2022 Protein Ql (U) 15 mg/dl Negative [facility] Work Phone: Serum or plasma albumin marya urement (mass/volume)on 03-26-2022 Albumin [Mass/Vol] 4.0 g/dL 3.2-5.0 [facility] Work Phone: Serum or plasma calcium marya urement (mass/volume)on 03-26-2022 Calcium [Mass/Vol] 10.0 mg/dL 8.5-10.1 [facility] Work Phone: Serum or plasma creatinine m easurement (mass/volume)on 03-26-2022 Creatinine [Mass/Vol] 2.77 mg/dL 0.55-1.02 [facility] Work Phone: Comment on above: The validity of the calculated GFR & GFRAA in patients over 70 years has not been determined. Clinical correlation is essential. Serum or plasma urea nitroge n measurement (mass/volume)on 03-26-2022 Urea nitrogen [Mass/Vol] 48 mg/dL 7-18 [facility] Work Phone: Squamous epithelial cells de tection in urine sediment by light microscopyon 03-26-2022 Epithelial cells.squamous LM Ql (Urine sed) 0-5 SEEN /hpf 5-10 [facility] Work Phone: Thin prep Papanicolaou smear with manual screeningon 03-26-2022 Thin prep Papanicolaou smear with manual screening 24 U/L 15-37 [facility] Work Phone: [phone] Comment on above: Moderate Hemolysis, Result may be falsely increased. Thin prep Papanicolaou smear with manual screening 9 5-15 [facility] Work Phone: Urine blood detectionon 03-06 RBC Ql (U) 10 /ul Negative [facility] Work Phone: RBC Ql (U) 0-5 SEEN /hpf 0-5 [facility] Work Phone: Urine clarityon 03-26-2022 Clarity (U) Clear Clear [facility] Work Phone: Urine color determinationon 03-26-2022 Color (U) Yellow Yellow [facility] Work Phone: Urine glucose detectionon Glucose Ql (U) Normal mg/dl Normal [facility] Work Phone: Urine leukocyte esterase det ection by dipstickon 03-26-2022 Leukocyte esterase Test strip Ql (U) 500 /ul Negative [facility] Work Phone: Urine pHon 03-26-2022 pH (U) 5.0 [pH] 5.0 - 8.0 [facility] Work Phone: Urine sediment bacteria coun t by microscopy (number/high power field)on 03-26-2022 Bacteria LM.HPF (Urine sed) [#/Area] 1 /[HPF] None Seen [facility] Work Phone: Urine specific gravity measu rementon 03-26-2022 Specific gravity (U) [Rel density] 1.015 1.002-1.030 [facility] Work Phone: Urobilinogen Auto test strip Ql (U)on 03-26-2022 Urobilinogen Ql (U) Normal mg/dl Normal [facility] Work Phone: Basophil percentageon 2021 Basophil percentage 3.2 mg/dL 2.5-4.9 [facility] Work Phone: Chloride [Moles/Vol] 101 mmol/L 98-107 [facility] Work Phone: Glucose [Mass/Vol] 92 mg/dL 74-106 [facility] Work Phone: Potassium [Moles/Vol] 3.5 mmol/L 3.5-5.1 [facility] Work Phone: Sodium [Moles/Vol] 137 mmol/L 136-145 [facility] Work Phone: WBC (Bld) [#/Vol] 6.9 10*3/uL 4.4-11.0 [facility] Work Phone: Bilirubin Test strip Ql (U)o n 02-03-2022 Bilirubin Ql (U) Negative Negative [facility] Work Phone: Blood erythrocytes count (nu mber/volume)on 02-03-2022 RBC (Bld) [#/Vol] 3.83 10*6/uL 4.2-5.4 [facility] Work Phone: Blood hemoglobin measurement (mass/volume)on 02-03-2022 Hemoglobin (Bld) [Mass/Vol] 11.4 g/dL 12.0-15. 0 [facility] Work Phone: Blood platelet mean volumeon 02-03-2022 Platelet mean volume (Bld) [Entitic vol] 11.1 fL 6.2-12.0 [facility] Work Phone: Determination of erythrocyte mean corpuscular volume (MCV)on 02-03-2022 MCV (RBC) [Entitic vol] 95.8 fL 81-99 [facility] Work Phone: Hematocrit Auto (Bld) [Volum e fraction]on 02-03-2022 Hematocrit (Bld) [Volume fraction] 36.7 % 37-47 [facility] Work Phone: Ketones Test strip Ql (U)on 02-03-2022 Ketones Ql (U) Negative Negative [facility] Work Phone: Laboratory - Chemistry and C hemistry - challengeon 02-03-2022 CO2 [Moles/Vol] 30.0 mmol/L 21.0-32.0 [facility] Work Phone: Urea nitrogen/Creatinine [Mass ratio] 22.9 mg/mg 10-20 [facility] Work Phone: Laboratory - Hematology and Cell countson 02-03-2022 Erythrocyte distribution width (RBC) [Entitic vol] 41.7 fL 35.1-43.9 [facility] Work Phone: Erythrocyte distribution width (RBC) [Ratio] 11.9 % 11.6-14.6 [facility] Work Phone: MCH (RBC) [Entitic mass] 29.8 pg 27.0-32.0 [facility] Work Phone: MCHC Auto (RBC) [Mass/Vol]on 02-03-2022 MCHC (RBC) [Mass/Vol] 31.1 g/dL 32-36 [facility] Work Phone: Nitrite Test strip Ql (U)on 02-03-2022 Nitrite Ql (U) Negative Negative [facility] Work Phone: No Panel Informationon 02-03 Estimated GFR (MDRD) Amer 26 mL/min >60 [facility] Work Phone: Comment on above: GFR Calc Estimated GFR (MDRD) Non-Af Amer 22 mL/min >60 [facility] Work Phone: Comment on above: Non- GFR Calc Parathyroid Hormone (Intact) 47.0 pg/mL 18.4-80.1 [facility] Work Phone: Platelets bldon 02-03-2022 Platelets (Bld) [#/Vol] 286 10*3/uL 150-450 [facility] Work Phone: Protein Test strip Ql (U)on 02-03-2022 Protein Ql (U) Negative Negative [facility] Work Phone: Serum or plasma albumin marya urement (mass/volume)on 02-03-2022 Albumin [Mass/Vol] 3.7 g/dL 3.2-5.0 [facility] Work Phone: Serum or plasma calcium marya urement (mass/volume)on 02-03-2022 Calcium [Mass/Vol] 9.7 mg/dL 8.5-10.1 [facility] Work Phone: Serum or plasma creatinine m easurement (mass/volume)on 02-03-2022 Creatinine [Mass/Vol] 2.31 mg/dL 0.55-1.02 [facility] Work Phone: Comment on above: The validity of the calculated GFR & GFRAA in patients over 70 years has not been determined. Clinical correlation is essential. Serum or plasma urea nitroge n measurement (mass/volume)on 02-03-2022 Urea nitrogen [Mass/Vol] 53 mg/dL 7-18 [facility] Work Phone: Urine blood detectionon RBC Ql (U) 10 /ul Negative [facility] Work Phone: Urine clarityon 02-03-2022 Clarity (U) Clear Clear [facility] Work Phone: Urine color determinationon 02-03-2022 Color (U) Yellow Yellow [facility] Work Phone: Urine glucose detectionon Glucose Ql (U) Normal mg/dl Normal [facility] Work Phone: Urine leukocyte esterase det ection by dipstickon 02-03-2022 Leukocyte esterase Test strip Ql (U) 500 /ul Negative [facility] Work Phone: Urine pHon 02-03-2022 pH (U) 6.0 [pH] 5.0 - 8.0 [facility] Work Phone: Urine specific gravity measu rementon 02-03-2022 Specific gravity (U) [Rel density] 1.010 1.002-1.030 [facility] Work Phone: Urobilinogen Auto test strip Ql (U)on 02-03-2022 Urobilinogen Ql (U) Normal mg/dl Normal [facility] Work Phone: C. difficile DNA DAVID+probe Q l (Unsp spec) C. difficile GDH Antigen & Toxins Toxigenic C. difficile [facility] Work Phone: Vital Signs Date Time Vital Sign Value Performing Clinician Faci lity 03-01-2025 11:29-0400 Body height 157.[address] Luís Rodriguez DO Work Phone: [facility] 03-01-2025 11:29-0400 Body mass index (BMI) [Ratio] 27.7 kg/m2 Dr. Luís Rodriguez DO Work Phone: [facility] 03-01-2025 11:29-0400 Body temperature 96.7 [degF] Dr. Luís Rodriguez DO Work Phone: [facility] 03-01-2025 11:29-0400 Body weight 68.[address] Luís Rodriguez DO Work Phone: [facility] 03-01-2025 11:29-0400 Diastolic blood pressure 80 mm[Hg] Dr. Luís Rodriguez DO Work Phone: [facility] 03-01-2025 11:29-0400 Heart rate 63 /min Dr. Luís Rodriguez DO Work Phone: [facility] 03-01-2025 11:29-0400 Respiratory rate 16 /min Dr. Luís Rodriguez DO Work Phone: [facility] 03-01-2025 11:29-0400 SaO2% (BldA) [Mass fraction] 97 % Dr. Luís Rodriguez DO Work Phone: [facility] 03-01-2025 11:29-0400 Systolic blood pressure 138 mm[Hg] Dr. Luís Rodriguez DO Work Phone: [facility] 02-23-2025 14:29-0400 Body mass index (BMI) [Ratio] 28.1 kg/m2 Dr. Luís Rodriguez DO Work Phone: [facility] 02-23-2025 14:29-0400 Body weight 69.[address] Luís Rodriguez DO Work Phone: [facility] 02-23-2025 14:29-0400 Diastolic blood pressure 92 mm[Hg] Dr. Luís Rodriguez DO Work Phone: [facility] 02-23-2025 14:29-0400 Heart rate 59 /min Dr. Luís Rodriguez DO Work Phone: [facility] 02-23-2025 14:29-0400 SaO2% (BldA) [Mass fraction] 97 % Dr. Luís Rodriguez DO Work Phone: [facility] 02-23-2025 14:29-0400 Systolic blood pressure 197 mm[Hg] Dr. Luís Rodriguez DO Work Phone: [facility] 07-22-2023 13:33-0400 Body height 157.[address] Luís Rodriguez Work Phone: [facility] 07-06-2023 13:49-0400 Body mass index (BMI) [Ratio] 27.4 kg/m2 Dr. Luís Rodriguez Work Phone: [facility] 07-06-2023 13:49-0400 Body weight 68.[address] Luís Rodriguez Work Phone: [facility] 07-06-2023 13:49-0400 Diastolic blood pressure 84 mm[Hg] Dr. Luís Rodriguze Work Phone: [facility] 07-06-2023 13:49-0400 Heart rate 70 /min Dr. Luís Rodriguez Work Phone: [facility] 07-06-2023 13:49-0400 Respiratory rate 16 /min Dr. Luís Rodriguez Work Phone: [facility] 07-06-2023 13:49-0400 SaO2% (BldA) [Mass fraction] 95 % Dr. Luís Rodriguez Work Phone: [facility] 07-06-2023 13:49-0400 Systolic blood pressure 156 mm[Hg] Dr. Luís Rodriguez Work Phone: [facility] 05-13-2023 12:40-0400 Body height 157.[address] Luís Rodrigeuz Work Phone: [facility] 05-13-2023 12:40-0400 Body mass index (BMI) [Ratio] 27.4 kg/m2 Dr. Luís Rodriguez Work Phone: [facility] 05-13-2023 12:40-0400 Body temperature 98.2 [degF] Dr. Luís Rodriguez Work Phone: [facility] 05-13-2023 12:40-0400 Body weight 68.[address] Luís Rodriguez Work Phone: [facility] 05-13-2023 12:40-0400 Diastolic blood pressure 84 mm[Hg] Dr. Luís Rodriguez Work Phone: [facility] 05-13-2023 12:40-0400 Heart rate 70 /min Dr. Luís Rodriguez Work Phone: [facility] 05-13-2023 12:40-0400 Respiratory rate 14 /min Dr. Luís Rodriguez Work Phone: [facility] 05-13-2023 12:40-0400 SaO2% (BldA) [Mass fraction] 95 % Dr. Luís Rodriguez Work Phone: [facility] 05-13-2023 12:40-0400 Systolic blood pressure 167 mm[Hg] Dr. Luís Rodriguez Work Phone: [facility] 05-07-2023 13:35-0400 Body mass index (BMI) [Ratio] 28.7 kg/m2 Dr. Luís Rodriguez Work Phone: [facility] 05-07-2023 13:35-0400 Body temperature 98.2 [degF] Dr. Luís Rodriguez Work Phone: [facility] 05-07-2023 13:35-0400 Body weight 71.[address] Luís Rodriguez Work Phone: [facility] 05-07-2023 13:35-0400 Diastolic blood pressure 92 mm[Hg] Dr. Luís Rodriguez Work Phone: [facility] 05-07-2023 13:35-0400 Heart rate 95 /min Dr. Luís Rodriguez Work Phone: [facility] 05-07-2023 13:35-0400 Respiratory rate 18 /min Dr. Luís Rodriguez Work Phone: [facility] 05-07-2023 13:35-0400 SaO2% (BldA) [Mass fraction] 95 % Dr. Luís Rodriguez Work Phone: [facility] 05-07-2023 13:35-0400 Systolic blood pressure 146 mm[Hg] Dr. Luís Rodrgiuez Work Phone: [facility] 04-08-2023 11:32-0400 Body mass index (BMI) [Ratio] 28.7 kg/m2 Dr. Luís Rodriguez Work Phone: [facility] 04-08-2023 11:32-0400 Body temperature 98.5 [degF] Dr. Luís Rodriguez Work Phone: [facility] 04-08-2023 11:32-0400 Body weight 71.[address] Luís Rodriguez Work Phone: [facility] 04-08-2023 11:32-0400 Diastolic blood pressure 78 mm[Hg] Dr. Luís Rodriguez Work Phone: [facility] 04-08-2023 11:32-0400 Heart rate 60 /min Dr. Luís Rodriguez Work Phone: [facility] 04-08-2023 11:32-0400 Respiratory rate 16 /min Dr. Luís Rodriguez Work Phone: [facility] 04-08-2023 11:32-0400 SaO2% (BldA) [Mass fraction] 97 % Dr. Luís Rodriguez Work Phone: [facility] 04-08-2023 11:32-0400 Systolic blood pressure 110 mm[Hg] Dr. Luís Rodriguez Work Phone: [facility] 03-03-2023 09:13-0400 Body height 157.[address] Luís Rodriguez Work Phone: [facility] 03-03-2023 09:13-0400 Body mass index (BMI) [Ratio] 28.3 kg/m2 Dr. Luís Rodriguez Work Phone: [facility] 03-03-2023 09:13-0400 Body temperature 98.9 [degF] Dr. Luís Rodriguez Work Phone: [facility] 03-03-2023 09:13-0400 Body weight 70.[address] Luís Rodriguez Work Phone: [facility] 03-03-2023 09:13-0400 Diastolic blood pressure 90 mm[Hg] Dr. Luís Rodriguez Work Phone: [facility] 03-03-2023 09:13-0400 Heart rate 56 /min Dr. Luís Rodriguez Work Phone: [facility] 03-03-2023 09:13-0400 Respiratory rate 16 /min Dr. Luís Rodriguez Work Phone: [facility] 03-03-2023 09:13-0400 SaO2% (BldA) [Mass fraction] 99 % Dr. Luís Rodriguez Work Phone: [facility] 03-03-2023 09:13-0400 Systolic blood pressure 152 mm[Hg] Dr. Luís Rodriguez Work Phone: [facility] 01-01-2023 10:36-0400 Body temperature 97 [degF] Dr. Luís Rodriguez Work Phone: [facility] 01-01-2023 10:36-0400 Body weight 69.[address] Luís Rodriguez Work Phone: [facility] 01-01-2023 10:36-0400 Diastolic blood pressure 86 mm[Hg] Dr. Luís Rodriguez Work Phone: [facility] 01-01-2023 10:36-0400 Heart rate 52 /min Dr. Luís Rodriguez Work Phone: [facility] 01-01-2023 10:36-0400 Respiratory rate 18 /min Dr. Luís Rodriguez Work Phone: [facility] 01-01-2023 10:36-0400 SaO2% (BldA) [Mass fraction] 99 % Dr. Luís Rodriguez Work Phone: [facility] 01-01-2023 10:36-0400 Systolic blood pressure 160 mm[Hg] Dr. Luís Rodriguez Work Phone: [facility] 10-01-2022 15:53-0500 Body temperature 96.8 [degF] Dr. Luís Rodriguez Work Phone: [facility] 10-01-2022 15:53-0500 Body weight 67.[address] Luís Rodriguez Work Phone: [facility] 10-01-2022 15:53-0500 Diastolic blood pressure 84 mm[Hg] Dr. Luís Rodriguez Work Phone: [facility] 10-01-2022 15:53-0500 Heart rate 61 /min Dr. Luís Rodriguez Work Phone: [facility] 10-01-2022 15:53-0500 Respiratory rate 16 /min Dr. Luís Rodriguez Work Phone: [facility] 10-01-2022 15:53-0500 SaO2% (BldA) [Mass fraction] 96 % Dr. Luís Rodriguez Work Phone: [facility] 10-01-2022 15:53-0500 Systolic blood pressure 136 mm[Hg] Dr. Luís Rodriguez Work Phone: [facility] 09-03-2022 13:31-0500 Body temperature 96.7 [degF] Dr. Luís Rodriguez Work Phone: [facility] 09-03-2022 13:31-0500 Body weight 68.[address] Luís Rodriguez Work Phone: [facility] 09-03-2022 13:31-0500 Diastolic blood pressure 72 mm[Hg] Dr. Luís Rodriguez Work Phone: [facility] 09-03-2022 13:31-0500 Heart rate 55 /min Dr. Luís Rodriguez Work Phone: [facility] 09-03-2022 13:31-0500 Respiratory rate 16 /min Dr. Luís Rodriguez Work Phone: [facility] 09-03-2022 13:31-0500 SaO2% (BldA) [Mass fraction] 97 % Dr. Luís Rodriguez Work Phone: [facility] 09-03-2022 13:31-0500 Systolic blood pressure 124 mm[Hg] Dr. Luís Rodriguez Work Phone: [facility] 08-20-2022 13:34-0500 Body temperature 97.3 [degF] Dr. Luís Rodriguez Work Phone: [facility] 08-20-2022 13:34-0500 Body weight 65.[address] Luís Rodriguez Work Phone: [facility] 08-20-2022 13:34-0500 Diastolic blood pressure 82 mm[Hg] Dr. Luís Rodriguez Work Phone: [facility] 08-20-2022 13:34-0500 Heart rate 56 /min Dr. Luís Rodriguez Work Phone: [facility] 08-20-2022 13:34-0500 Respiratory rate 16 /min Dr. Luís Rodriguez Work Phone: [facility] 08-20-2022 13:34-0500 SaO2% (BldA) [Mass fraction] 100 % Dr. Luís Rodriguez Work Phone: [facility] 08-20-2022 13:34-0500 Systolic blood pressure 116 mm[Hg] Dr. Luís Rodriguez Work Phone: [facility] 07-25-2022 12:27-0400 Body temperature 98 [degF] Dr. Luís Rodriguez Work Phone: [facility] 07-25-2022 12:27-0400 Diastolic blood pressure 82 mm[Hg] Dr. Luís Rodriguez Work Phone: [facility] 07-25-2022 12:27-0400 Heart rate 69 /min Dr. Luís Rodriguez Work Phone: [facility] 07-25-2022 12:27-0400 Respiratory rate 16 /min Dr. Luís Rodriguez Work Phone: [facility] 07-25-2022 12:27-0400 SaO2% (BldA) [Mass fraction] 99 % Dr. Luís Rodriguez Work Phone: [facility] 07-25-2022 12:27-0400 Systolic blood pressure 122 mm[Hg] Dr. Luís Rodriguez Work Phone: [facility] 06-26-2022 09:35-0400 Body height 157.[address] Luís Rodriguez Work Phone: [facility] 06-26-2022 09:35-0400 Body mass index (BMI) [Ratio] 25.9 kg/m2 Dr. Luís Rodriguez Work Phone: [facility] 06-26-2022 09:35-0400 Body weight 64.[address] Luís Rodriguez Work Phone: [facility] 2022 10:35-0400 Body temperature 97.5 [degF] Dr. Luís Rodriguez Work Phone: [facility] Work Phone: 2022 10:35-0400 Diastolic blood pressure 80 mm[Hg] Dr. Luís Rodriguez Work Phone: [facility] Work Phone: 2022 10:35-0400 Heart rate 57 /min Dr. Luís Rodriguez Work Phone: [facility] Work Phone: 2022 10:35-0400 Respiratory rate 18 /min Dr. Luís Rodriguez Work Phone: [facility] Work Phone: 2022 10:35-0400 SaO2% (BldA) [Mass fraction] 99 % Dr. Luís Rodriguez Work Phone: [facility] Work Phone: 2022 10:35-0400 Systolic blood pressure 135 mm[Hg] Dr. Luís Rodriguez Work Phone: [facility] Work Phone: 2022 10:27-0400 Body temperature 97.5 [degF] Dr. Luís Rodriguez Work Phone: [facility] Work Phone: 2022 10:27-0400 Diastolic blood pressure 80 mm[Hg] Dr. Luís Rodriguez Work Phone: [facility] Work Phone: 2022 10:27-0400 Heart rate 57 /min Dr. Luís Rodriguez Work Phone: [facility] Work Phone: 2022 10:27-0400 Respiratory rate 18 /min Dr. Luís Rodriguez Work Phone: [facility] Work Phone: 2022 10:27-0400 SaO2% (BldA) [Mass fraction] 99 % Dr. Luís Rodriguez Work Phone: [facility] Work Phone: 2022 10:27-0400 Systolic blood pressure 135 mm[Hg] Dr. Luís Rodriguez Work Phone: [facility] Work Phone: 03-26-2022 21:01-0400 Diastolic blood pressure 64 mm[Hg] Dr. Luís Rodriguez Work Phone: [facility] Work Phone: 03-26-2022 21:01-0400 Heart rate 75 /min Dr. Luís Rodriguez Work Phone: [facility] Work Phone: 03-26-2022 21:01-0400 Respiratory rate 16 /min Dr. Luís Rodriguez Work Phone: [facility] Work Phone: 03-26-2022 21:01-0400 SaO2% (BldA) [Mass fraction] 98 % Dr. Luís Rodriguez Work Phone: [facility] Work Phone: 03-26-2022 21:01-0400 Systolic blood pressure 136 mm[Hg] Dr. Luís Rodriguez Work Phone: [facility] Work Phone: 03-26-2022 14:10-0400 Body height 157.[address] Luís Rodriguez Work Phone: [facility] Work Phone: 03-26-2022 14:10-0400 Body mass index (BMI) [Ratio] 25.6 kg/m2 Dr. Luís Rodriguez Work Phone: [facility] Work Phone: 03-26-2022 14:10-0400 Body temperature 97.6 [degF] Dr. Luís Rodriguez Work Phone: [facility] Work Phone: 03-26-2022 14:10-0400 Body weight 63.[address] Luís Rodriguez Work Phone: [facility] Work Phone: 01-24-2022 12:02-0400 Body temperature 97.2 [degF] Dr. Luís Rodriguez Work Phone: [facility] Work Phone: 01-24-2022 12:02-0400 Diastolic blood pressure 84 mm[Hg] Dr. Luís Rodriguez Work Phone: [facility] Work Phone: 01-24-2022 12:02-0400 Heart rate 62 /min Dr. Luís Rodriguez Work Phone: [facility] Work Phone: 01-24-2022 12:02-0400 Respiratory rate 15 /min Dr. Luís Rodriguez Work Phone: [facility] Work Phone: 01-24-2022 12:02-0400 SaO2% (BldA) [Mass fraction] 99 % Dr. Luís Rodriguez Work Phone: [facility] Work Phone: 01-24-2022 12:02-0400 Systolic blood pressure 140 mm[Hg] Dr. Luís Rodriguez Work Phone: [facility] Work Phone: 01-24-2022 12:02-0400 Body temperature 97.2 [degF] Dr. Luís Rodriguez Work Phone: [facility] Work Phone: 01-24-2022 12:02-0400 Diastolic blood pressure 84 mm[Hg] Dr. Luís Rodriguez Work Phone: [facility] Work Phone: 01-24-2022 12:02-0400 Heart rate 62 /min Dr. Luís Rodriguez Work Phone: [facility] Work Phone: 01-24-2022 12:02-0400 Respiratory rate 15 /min Dr. Luís Rodriguez Work Phone: [facility] Work Phone: 01-24-2022 12:02-0400 SaO2% (BldA) [Mass fraction] 99 % Dr. Luís Rodriguez Work Phone: [facility] Work Phone: 01-24-2022 12:02-0400 Systolic blood pressure 140 mm[Hg] Dr. Luís Rodriguez Work Phone: [facility] Work Phone: 01-07-2022 10:26-0400 Body temperature 98.4 [degF] Dr. Luís Rodriguez Work Phone: [facility] Work Phone: 01-07-2022 10:26-0400 Diastolic blood pressure 84 mm[Hg] Dr. Luís Rodriguez Work Phone: [facility] Work Phone: 01-07-2022 10:26-0400 Heart rate 74 /min Dr. Luís Rodriguez Work Phone: [facility] Work Phone: 01-07-2022 10:26-0400 Respiratory rate 15 /min Dr. Lusí Rdoriguez Work Phone: [facility] Work Phone: 01-07-2022 10:26-0400 SaO2% (BldA) [Mass fraction] 98 % Dr. Luís Rodriguez Work Phone: [facility] Work Phone: 01-07-2022 10:26-0400 Systolic blood pressure 130 mm[Hg] Dr. Luís Rodriguez Work Phone: [facility] Work Phone: 01-07-2022 10:26-0400 Body temperature 98.4 [degF] Dr. Luís Rodriguez Work Phone: [facility] Work Phone: 01-07-2022 10:26-0400 Diastolic blood pressure 84 mm[Hg] Dr. Luís Rodriguez Work Phone: [facility] Work Phone: 01-07-2022 10:26-0400 Heart rate 74 /min Dr. Luís Rodriguez Work Phone: [facility] Work Phone: 01-07-2022 10:26-0400 Respiratory rate 15 /min Dr. Luís Rodriguez Work Phone: [facility] Work Phone: 01-07-2022 10:26-0400 SaO2% (BldA) [Mass fraction] 98 % Dr. Luís Rodriguez Work Phone: [facility] Work Phone: 01-07-2022 10:26-0400 Systolic blood pressure 130 mm[Hg] Dr. Luís Rodriguez Work Phone: [facility] Work Phone: Encounters Encounter Date Encounter Type Care Provider Facility Start: 03-01-2025 End: 03-01-[address] Luís Chavez DO -[facility] Work Phone: Start: 03-01-2025 End: 03-01-[address] Luís Rodriguez DO Work Phone: [facility] Work Phone: Start: 02-23-2025 End: 02-23-[address] Lars Vizcaino MD -[facility] Work Phone: Start: 02-23-2025 End: 02-23-2025 ambulatory Lars Vizcaino Facility:[facility] Start: 01-03-2025 End: 01-03-[address] Luís Rodriguez DO Work Phone: [facility] Work Phone: Start: 01-03-2025 End: 01-03-[address] Michel Woodall MD -Laboratory Work Phone: Start: 01-03-2025 End: 01-03-2025 ambulatory Luís Rodriguez Facility:[facility] Start: 11-14-2024 End: 11-14-[address] Michel Woodall MD -Laboratory Work Phone: Start: 11-14-2024 End: 11-14-2024 ambulatory Luís Rodriguez Facility:[facility] Start: 10-14-2024 End: 10-14-[address] Luís Rodriguez DO Work Phone: [facility] Work Phone: Start: 10-14-2024 End: 10-14-2024 Patient encounter procedure Robb Leyva DO -Laboratory, Specimen Work Phone: Start: 10-14-2024 End: 10-14-2024 ambulatory Robb Leyva Facility:[facility] Start: 08-31-2024 End: 08-31-2024 ambulatory Michel Woodall Facility:[facility] Start: 08-22-2024 End: 08-22-2024 ambulatory Michel Woodall Facility:[facility] Start: 07-20-2024 End: 07-20-2024 ambulatory Luís Rodriguez Facility:[facility] Start: 06-21-2024 End: 06-21-2024 ambulatory Luís Rodriguez Facility:[facility] Start: 04-11-2024 End: 04-11-2024 ambulatory Luís Rodriguez Facility:[facility] Start: 04-06-2024 End: 04-06-2024 ambulatory Luís Rodriguez Facility:[facility] Start: 02-04-2024 End: 02-04-[address] Luís Rodriguez Work Phone: [facility] Work Phone: Start: 02-04-2024 End: 02-04-[address] Luís Rodriguez Work Phone: [facility]-Laboratory, Specimen Work Phone: Start: 02-03-2024 End: 02-03-[address] Luís Rodriguez Work Phone: [facility] Gastroenterology Work Phone: Start: 01-08-2024 End: 01-08-[address] Luís Rodriguez Work Phone: [facility] Work Phone: Start: 07-24-2023 End: 07-24-[address] Luís Rodriguez Work Phone: [facility] Work Phone: Start: 07-22-2023 End: 07-22-[address] Luís Rodriguez Work Phone: [facility] Work Phone: Start: 07-22-2023 End: 07-22-[address] Luís Rodriguez Work Phone: [facility] Work Phone: Start: 07-06-2023 End: 07-06-[address] Luís Rodriguez Work Phone: [facility] Work Phone: Start: 07-02-2023 End: 07-02-[address] Luís Rodriguez Work Phone: [facility] Work Phone: Start: 06-09-2023 End: 06-09-[address] Luís Rodriguez Work Phone: [facility] Work Phone: Start: 06-09-2023 End: 06-09-[address] Luís Rodriguez Work Phone: [facility]-Laboratory Work Phone: Start: 05-13-2023 End: 05-13-[address] Luís Rodriguez Work Phone: [facility] Work Phone: Start: 05-07-2023 End: 05-07-[address] Luís Rodriguez Work Phone: [facility] Work Phone: Start: 04-08-2023 End: 04-08-[address] Luís Rodriguez Work Phone: [facility] Internal Medicine Work Phone: Start: 03-05-2023 End: 03-05-[address] Luís Rodriguez Work Phone: [facility] Work Phone: Start: 03-05-2023 End: 03-05-[address] [facility] Start: 03-03-2023 End: 03-03-[address] Luís Rodriguez Work Phone: [facility] Medicine Start: 02-04-2023 End: 02-04-[address] Luís Rodriguez Work Phone: [facility] Gastroenterology Start: 01-23-2023 Non-patient / Non-visit Dr. Luís Rodriguez Work Phone: [facility] Start: 01-23-2023 End: 01-23-[address] Luís Rodriguez Work Phone: [facility] Work Phone: Start: 01-23-2023 End: 01-23-[address] [facility] Start: 01-08-2023 End: 01-08-[address] Luís Rodriguez Work Phone: [facility] Work Phone: Start: 01-08-2023 End: 01-08-[address] Luís Rodriguez Work Phone: [facility]-Outpatient Bone Densitometry Start: 01-06-2023 End: 01-06-[address] Luís Rodriguez Work Phone: [facility] Work Phone: Start: 01-06-2023 End: 01-06-[address] Luís Rodriguez Work Phone: [facility]-Ultrasound, [facility] Start: 01-02-2023 End: 01-02-[address] Luís Rodriguez Work Phone: [facility] Work Phone: Start: 01-02-2023 End: 01-02-[address] Luís Rodriguez Work Phone: [facility]-Radiology, [facility] Start: 01-01-2023 End: 01-01-[address] Luís Rodriguez Work Phone: [facility] Internal Medicine Start: 12-15-2022 End: 12-15-[address] Luís Rodriguez Work Phone: [facility] Work Phone: Start: 12-15-2022 End: 12-15-[address] Luís Rodriguez Work Phone: [facility]-Laboratory Start: 10-07-2022 End: 10-07-[address] Luís Rodriguez Work Phone: [facility] Work Phone: Start: 10-07-2022 End: 10-07-[address] Luís Rodriguez Work Phone: [facility] Gastroenter[facility] Start: 10-01-2022 End: 10-01-[address] Luís Rodriguez Work Phone: [facility] Internal Medicine Start: 09-03-2022 End: 09-03-[address] Luís Rodriguez Work Phone: [facility] Work Phone: Start: 09-03-2022 End: 09-03-[address] Luís Rodriguez Work Phone: [facility] Medicine Start: 08-20-2022 End: 08-20-[address] Luís Rodriguez Work Phone: [facility] Work Phone: Start: 08-20-2022 End: 08-20-[address] Luís Rodriguez Work Phone: [facility]-Laboratory Start: 08-20-2022 End: 08-20-[address] Luís Rodriguez Work Phone: [facility] Internal Medicine Start: 08-11-2022 End: 08-11-[address] Luís Rodriguez Work Phone: [facility] Start: 07-25-2022 End: 07-25-[address] Luís Rodrgiuez Work Phone: [facility] Start: 06-26-2022 End: 06-26-[address] Luís Rodriguez Work Phone: [facility]enter[facility] Start: 2022 End: [address] Luís Rodriguez Work Phone: [facility] Work Phone: Start: 2022 End: [address] [facility] Start: 05-14-2022 End: 05-14-[address] [facility]ís [facility] Start: 04-25-2022 End: 04-25-[address] Luís Rodriguez Work Phone: [facility]-Laboratory, Specimen Start: 04-15-2022 End: 04-15-[address] Luís Rodriguez Work Phone: [facility]-Laboratory Start: 04-15-2022 End: 04-15-[address] Luís Rodriguez Work Phone: [facility]astroenter[facility] Start: 03-26-2022 End: 03-26-2022 Emergency department patient visit Dr. Luís Rodriguez Work Phone: [facility]-Emergency Department Start: 02-19-2022 End: 02-19-[address] Luís Rodriguez Work Phone: [facility], [facility] Start: 02-03-2022 End: 02-03-[address] Luís Rodriguez Work Phone: [facility]-Laboratory Start: 01-24-2022 End: 01-24-[address] Luís Rodriguez Work Phone: [facility] Start: 01-07-2022 End: 01-07-[address] Luís Rodriguez Work Phone: [facility] Start: 06-26-[address] Luís Rodriguez Work Phone: [facility] Comment on above: An incidental left i nguinal hernia was seen that is filled with fat cells. Does not seem to be a surgical problem Procedures Date Procedure Procedure Detail Performing Clinician Start: 01-03-[address] Luís Rodriguez DO Work Phone: Start: 01-03-2025 Serum inorganic phos phate measurement Dr. Luís Rodriguez DO Work Phone: Start: 01-03-2025 Total iron binding c apacity measurement Dr. Luís Rodriguez DO Work Phone: Start: 11-14-2024 Assay of phosphorus inorganic Dr. Luís Rodriguez DO Work Phone: Start: 11-14-2024 Measurement of renal function Dr. Luís Rodriguez DO Work Phone: Comment on above: GFR Calc Start: 11-14-[address] Luís Rodriguez DO Work Phone: Start: 10-14-2024 Measurement of occul t blood in stool specimen using immunoassay Dr. Luís Rodriguez DO Work Phone: Start: 02-04-2024 Measurement of occul t blood in stool specimen using immunoassay Dr. Luís Rodriguez Work Phone: Start: 07-22-2023 MRI of lumbar spine Dr. Luís Rodriguez Work Phone: Start: 07-02-2023 Plain x-ray of pelvi s and lower extremity Dr. Luís Rodriguez Work Phone: Start: 07-02-2023 X-ray of lumbar spin e, two or three views Dr. Luís Rodriguez Work Phone: Start: 03-05-2023 Plain x-ray of pelvi s and lower extremity Dr. Luís Rodriguez Work Phone: Start: 01-08-2023 Dual energy X-ray absorptiometry Dr. Luís Rodriguez Work Phone: Start: 01-06-[address] Horn Work Phone: Start: 01-02-2023 Plain chest X-ray Dr. Walt Rodriguez Work Phone: Start: 09-03-2022 Plain chest X-ray Dr. Walt Rodriguez Work Phone: Start: 03-26-2022 CT of abdomen and pe lvis with oral contrast Dr. Luís Rodriguez Work Phone: Start: 02-19-[address] Horn Work Phone: Clostridium difficil e detection Dr. Luís Rodriguez Work Phone: Lactoferrin measurement Dr. Luís Rodriguez Work Phone: [facility] OR parasites identification Dr. Luís Rodriguez Work Phone: Plan of Treatment Date Care Activity Detail Author Start: 02-23-2025 Evaluation of diagno stic study results [facility] Start: 01-08-2024 Patient referral [facility] Work Phone: Start: 07-24-2023 Patient referral [facility] Work Phone: Start: 01-08-2023 Dual energy X-ray absorptiometry Dexa Bone Density Study [facility] Start: 01-08-2023 DXA Bone [Mass/Area] Bone density [facility] Start: 2022 Iv infusion therapy prophylaxis/dx ea hour THER/PROPH/DIAG IV INF ADDON [facility] Work Phone: Start: 2022 Iv infusion therapy/prophylaxis /dx 1st to 1 hr THER/PROPH/DIAG IV INF INIT [facility] Work Phone: Start: 2022 Following clinical p athway protocol [facility] Work Phone: Start: 04-25-2022 Elastase, pancreatic (el-1), fecal; quantitative [facility] Work Phone: Patient Education ED Gastroenter itis, Bacterial (Adult) ED CYSTITIS Female Adult [facility] Work Phone: Patient referral [facility] Work Phone: [facility] Immunizations Immunization Date Immunization Notes Care Provider Fa cility 08-11-2022 influenza, injectabl e, quadrivalent, preservative free Dr. Luís Rodriguez Work Phone: [facility] 08-11-2022 influenza, seasonal, injectable Dr. Luís Rodriguez Work Phone: [facility] Payers Date Payer Category Payer Self-pay [id number] 2008 Medicare [id number] [facility] [id number] Unknown [id number] 2.16.8 [id number] Unknown [id number] 2.16.8 [id number] Unknown [id number] 2.16.8 [id number] Unknown [id number] 2.16.8 [id number] Unknown [id number] 2.16.8 [id number] Unknown [id number] 2.16.8 [id number] Unknown [id number] 2.16.8 [id number] Unknown [id number] 2.16.8 [id number] Unknown [id number] 2.16.8 [id number] Unknown [id number] 2.16.8 [id number] Unknown [id number] 2.16.8 [id number] Social History Date Type Detail Facility Start: 01-24-2022 End: 01-08-2024 Tobacco smoking status NHIS Unknown if ever smoked [facility] Start: 1945 Sex Assigned At Female [facility] Start: 07-20-2024 Tobacco smoking stat us MEIS Never smoked tobacco (finding) [facility] Start: 01-07-2025 End: 01-11-2025 Sex Female (finding) [facility] Clinical Notes 02-23-2025 to 03-01-2025 Note Date & Type Note Facility 03-01-2025 Progress note [facility] 03-01-2025 Progress note Note Date/Time March 01, 2025 12:04pm [facility] [address] [place] [address] [place] [address] OFFICE VISIT Date of Service: 03/01/25 MR#: [id number] Acct: [id number] Name: TANJA ATKINSON Rep #: [id number] : 1945 Provider: Dr. Leonardo Rodriguez, DO Age/Sex: 79/F Location: [facility] Status: Signed Intake Vital Signs 02/23/25 14:29 03/01/25 11:29 Height 5 ft 2 in 5 ft 2 in Weight: 154 lb 151 lb 8 oz BMI 28.1 27.7 BP 197/92 H 138/80 H Blood Pressure Location Rt brachial Lt brachial Position Sitting Sitting Respiration 16 Pulse 59 L 63 Pulse Source Monitor Monitor Temp 96.7 F L Temp Source Temporal Pulse Oximetry (%) 97 97 Oxygen Delivery Method room air room air Intake Visit Reasons: fu Chief Complaint: fu Manager Fixed Income Required: No Accompanied by: Self Is patient in pain?: No Allergies amlodipine besylate (From Norvasc) Allergy (Verified 03/01/25 11:24) Swelling clindamycin Allergy (Verified 03/01/25 11:24) Rash codeine Adverse Reaction (Verified 03/01/25 11:24) Vomiting meperidine HCl (From Demerol) Adverse Reaction (Verified 03/01/25 11:24) Vomiting Medications ?Medication ?Instructions ?Recorded ?Confirmed ?Type acetaminophen 500 mg tablet 500 mg PO Q4H 04/12/19 History (Tylenol Extra Strength) cholecalciferol (vitamin D3) 50 50 mcg PO DAILY 03/01/25 History mcg (2,000 unit) capsule polyethylene glycol 3350 17 17 g PO .COMPLEX 08/20/22 03/01/25 History gram/dose oral powder (Miralax) Bifidobacterium infantis 4 mg 4 mg PO DAILY 01/01/23 0 03/01/25 History capsule (Align (B.infantis)) furosemide 40 mg tablet mg PO 02/11/24 03/01/25 Hist ory vancomycin 125 mg capsule 125 mg PO BID PRN 02/11/24 0 03/01/25 History aspirin 81 mg tablet,delayed 81 mg PO DAILY #90 tabs 0 06/21/24 03/01/25 Rx release (Enteric Coated Aspirin) magnesium oxide 400 mg (241.3 mg 400 mg PO DAILY #90 t abs 01/03/25 03/01/25 Rx magnesium) tablet (MagOx) rosuvastatin 5 mg tablet 5 mg PO QDAY #90 tabs 03/01/25 Rx atenolol 25 mg tablet 25 mg PO BID #90 tabs 03/01/25 Rx calcium citrate 200 mg PO BID 02/23/2503/01 History doxazosin 4 mg tablet 4 mg PO QPM 02/23/25 5 History netarsudil 0.02 %-latanoprost 1 drp ophthalmic (eye) Q PM 02/23/25 03/01/25 History 0.005 % eye drops (Rocklatan) febuxostat 40 mg tablet (Uloric) 40 mg PO QDAY #90 tab s 02/28/25 03/01/25 Rx Have you fallen in the past year?: No PFSH Medical History Acute cervical myofascial strain Acute maxillary sinusitis, unspecified Thoracic myofascial strain Cervical strain history Cystocele and rectocele Vision problems Stroke Parathyroid disorder Osteoporosis Kidney failure High cholesterol High blood pressure High calcium levels Heart disease Chronic headaches Gout Gastrointestinal problem Glaucoma Blood clot in vein Chronic bronchitis Back problem Anemia Surgical History History of spinal surgery History of knee surgery History of hysterectomy History of vein stripping History of tubal ligation History of appendectomy Family History Father Angina pectoris CVA (cerebral vascular accident) Heart disease Brother Angina pectoris Kidney disease Heart disease Sister Angina pectoris Heart disease Mother Blood clot in vein Bowel disease Colon cancer Uterine cancer Social History Smoking Status: Never smoker alcohol intake: never substance use type: does not use what type of physical activity do you participate in: walking HPI HPI Chief Complaint: fu Details: TANJA ATKINSON, is a 79 F who presents to the office today for a follow-up visit after seeing the polisher brass Dr. Vizcaino. His recommendation was just follow-up with nephrology as she is done for about 10 years. He thought perhapschanging to carvedilol would be worthwhile, but the blood pressure reading we get in our office is low enough that I see no sense in that. ROS Const Constitutional: No body ache, excessive sweating, fatigue, fever(s), frequent falls, headache(s), snoring, weakness, weight change, sleep problems or change in appetite Eyes Eyes: No blurry vision, change in vision, eye pain or Light sensitivity ENT ENT: No abnormal hearing, ear or mastoid pain, tinnitus, nasal congestion, headache(s), neck pain or sore throat Resp Respiratory: No cough, shortness of breath, snoring or wheezing Cardio Cardiology: No chest pain at rest, chest pain with exertion, excessive sweating,shortness of breath, dyspnea on exertion, lightheadedness, orthopnea or palpitations Gastro GI: No abdominal pain, change in bowel habits, constipation, cramping, diarrhea,nausea/dyspepsia or vomiting Genitourinary-Female: No burning urination, painful urination, urinary incontinence, urinary frequency, blood in urine, abnormal periods or pelvic pain Musc Musculoskeletal: No abnormal gait, joint pain, back pain, limited range of motion, neck pain, numbness, stiffness, tingling or Arthritis Skin Skin: No dry skin, redness, lesions, itchy eyes, rash or wounds Neuro Neurology: No abnormal gait, abnormal hearing, abnormal speech, dizziness, weakness, frequent falls, headache(s), memory loss, numbness or tingling Psych Psychiatric: No anxiety, No change in appetite, No depression, No memory loss and No Thoughts of harming yourself/Others Endo Endocrine: No cold intolerance, excessive sweating, fatigue, flushing, heat intolerance, increased thirst/drinking, increased hunger or weight change Aller/Imm Allergy/Immunologic: No itchy eyes, seasonal allergy symptoms, hives or wheezing Hector/Lymp Hematologic/Lymphatic: No easy bleeding, easy bruising or enlarged lymph nodes Exam Const General: cooperative, healthy appearing and no acute distress Nutritional Appearance: average body habitus [facility] Head: normal to inspection Ears: hearing grossly normal bilaterally Nose: external nose normal Face and sinus: normal facial exam Mouth: oral mucosae normal Teeth and gingiva: dentition normal Eyes General: appearance normal, both eyes and all related structures Neck Neck: normal visual inspection Thyroid: thyroid normal Resp Effort & Inspection: normal respiratory effort Auscultation: Bilateral: Clear to Auscultation Cardio Rate: regular rate Rhythm: regular rhythm Musc Musculoskeletal: Yes joint tenderness (Hips are painful and she has had them injected with cortisone recently.) Skin General: no rashes or lesions noted Neuro General: patient alert Cranial Nerves: CN's II-XI intact bilaterally Speech: speech normal Gait: wide-based Motor: muscle tone normal throughout Extrem General: normal to inspection and no pedal edema Psych Appearance: grossly normal Mental Status: mental status grossly normal Speech and Movement: speech and movement normal Thought Content: normal Judgment: judgment good Coding Level of Care Code Off vis,est,level 3 Diagnoses CKD (chronic kidney disease) stage 4, GFR 15-29 ml/min N18.4 Essential hypertension I10 Hypertension type: essential hypertension Assessment and Plan Assessment and Plan (1) CKD (chronic kidney disease) stage 4, GFR 15-29 ml/min: Status: Chronic Comment: This patient's creatinine has been stable for the last several years. Plan: Continue to follow with the landing worker. Patient is very adamant that she doesnot want to be on dialysis. (2) High blood pressure: Status: Chronic Qualifiers: Hypertension type: essential hypertension Qualified Code(s): I10 - Essential (primary) hypertension Plan: Her blood pressure in the office today is 138/80. I do feel she has some degreeof whitecoat hypertension as it is significantly higher when she is seeing otherproviders. I think the combination of medication she is on is both safe and effective and see no reason to change. Clinical Quality Measures Falls Risk Screening/Assistive Devices Have you fallen in the past year?: No 03/01/25 3955 <Electronically signed by Luís shah DO> Date _ Luís Rodriguez DO Cosigner Signature: Date (if applicable) CC: ~ [facility] Work Phone: 1(934) 711-363705-22-2025 Evaluation note* Diagnosis Onset Date Resolution Status Admit Date Hyperlipidemia acute February 23, 2025 2:22pm CKD (chronic kidney disease) stage 4, GFR 15-29 ml/min chronic February 232024 2:22pm High blood pressure chronic February 032024 2:22pm CKD (chronic kidney disease) stage 4, GFR 15-29 ml/min chronic March 012024 11:22am High blood pressure chronic February 032024 11:22am [facility] Work Phone: Evaluation note* Diagnosis Onset Date Resolution Status Acute sinusitis, unspecified acute Gastroenteritis acute [facility] Work Phone: evaluation note* Diagnosis Onset Date Resolution Status Gastroenteritis acute Abdominal pain acute [facility] Work Phone: evaluation note* Diagnosis Onset Date Resolution Status Abdominal pain acute History of Clostridioides difficile colitis acute [facility] Work Phone: evaluation note* Diagnosis Onset Date Resolution Status History of Clostridioides difficile colitis acute Allergic urticaria acute Cutaneous horn acute History of Clostridioides difficile colitis acute CKD (chronic kidney disease) stage 4, GFR 15-29 ml/min chronic Stroke [facility] Work Phone: evaluation note* Diagnosis Onset Date Resolution Status History of Clostridioides difficile colitis acute Allergic urticaria acute Cutaneous horn acute History of Clostridioides difficile colitis acute CKD (chronic kidney disease) stage 4, GFR 15-29 ml/min chronic Stroke chronic Cough acute Cutaneous horn acute [facility] Work Phone: Evaluation note* Diagnosis Onset Date Resolution Status History of Clostridioides difficile colitis acute Allergic urticaria acute Cutaneous horn acute History of Clostridioides difficile colitis acute CKD (chronic kidney disease) stage 4, GFR 15-29 ml/min chronic Stroke chronic Cough acute Cutaneous horn acute Squamous cell carcinoma acut e Squamous cell carcinoma acut e C. difficile colitis acute Abdominal pain [facility] Work Phone: Evaluation note* Diagnosis Onset Date Resolution Status Cough acute Cutaneous horn acute Squamous cell carcinoma acut e Squamous cell carcinoma acut e C. difficile colitis acute Abdominal pain [facility] Work Phone: Evaluation note* Diagnosis Onset Date Resolution Status Squamous cell carcinoma acut e C. difficile colitis acute Abdominal pain chronic Cough acute CKD (chronic kidney disease) stage 4, GFR 15-29 ml/min chronic Heart disease chronic High blood pressure chronic High cholesterol chronic Parathyroid disorder chronic [facility] Work Phone: Evaluation note* Diagnosis Onset Date Resolution Status Cough acute CKD (chronic kidney disease) stage 4, GFR 15-29 ml/min chronic Heart disease chronic High blood pressure chronic High cholesterol chronic Parathyroid disorder chronic Abdominal pain chronic C. difficile colitis resolve d Knee strain acute Right hip pain acute High blood pressure chronic Kidney failure chronic [facility] Work Phone: Evaluation note* Diagnosis Onset Date Resolution Status Knee strain acute Right hip pain acute High blood pressure chronic Kidney failure chronic Knee strain acute Right hip pain acute CKD (chronic kidney disease) stage 4, GFR 15-29 ml/min chronic Acute sinusitis, unspecified acute Cervical strain acute Thoracic myofascial strain [facility] Work Phone: Evaluation note* Diagnosis Onset Date Resolution Status Knee strain acute Right hip pain acute CKD (chronic kidney disease) stage 4, GFR 15-29 ml/min chronic Acute sinusitis, unspecified acute Cervical strain acute Thoracic myofascial strain [facility] Low back pain acute Right hip pain acute Acute cervical myofascial strain acute Acute maxillary sinusitis, unspecified acute Facet arthritis of lumbar region acute Spinal stenosis of lumbar re gion without neurogenic claudication acute [facility] Work Phone: Evaluation note* Diagnosis Onset Date Resolution Status Facet arthritis of lumbar region acute S/P lumbar fusion acute Spinal stenosis of lumbar re gion without neurogenic claudication acute Family history of colon cancer acute Abdominal pain chronic C. difficile colitis resolve d [facility] Work Phone: Evaluation noteNo assessment information available [facility] Work Phone: Hospital Discharge instructionsAmbulatory Orders* Pain Management Location: None Selected [facility] Work Phone: Reason for referral (narrative)No reason for [facility] Work [facility]: Chief Complaint and Reason for Visit Chief Complaint CONCERN FOR SINUS IN FECTION UPSET STOMACH FROM ATB Reason for Visit Acute sinusitis, uns pecified Gastroenteritis Chief Complaint CONCERN FOR SINUS IN FECTION UPSET STOMACH FROM ATB Acute kidney failure, unspecified Reason for Visit Acute sinusitis, uns pecified Gastroenteritis Chief Complaint CONCERN FOR SINUS IN FECTION UPSET STOMACH FROM ATB Acute kidney failure, unspecified ABD Reason for Visit Acute sinusitis, uns pecified Gastroenteritis Chief Complaint CONCERN FOR SINUS IN FECTION UPSET STOMACH FROM ATB Acute kidney failure, unspecified ABD ER FU E-ORDER LABSPEC Reason for Visit Acute sinusitis, uns pecified Gastroenteritis Chief Complaint UPSET STOMACH FROM A TB Acute kidney failure, unspecified ABD ER FU E-ORDER LABSPEC E-ORDER Reason for Visit Gastroenteritis Abdominal pain Chief Complaint ABD ER FU E-ORDER LABSPEC E-ORDER ZINPLAVA OUTPT INFUSION TO THE FLOOR 2 MO FU Reason for Visit Abdominal pain History of Clostridioides difficile colitis Chief Complaint E-ORDER ZINPLAVA OUTPT INFUSION TO THE FLOOR 2 MO FU RASH ON BODY FLU SHOT GENERAL CHECK UP EORDERS Reason for Visit History of Clostridi oides difficile colitis Allergic urticaria Cutaneous horn History of Clostridioides difficile colitis CKD (chronic kidney disease) stage 4, GFR 15-29 ml/min Stroke Chief Complaint ZINPLAVA OUTPT INFUSION TO THE FLOOR 2 MO FU RASH ON BODY FLU SHOT GENERAL CHECK UP EORDERS MOLE REMOVER EORDER Reason for Visit History of Clostridi oides difficile colitis Allergic urticaria Cutaneous horn History of Clostridioides difficile colitis CKD (chronic kidney disease) stage 4, GFR 15-29 ml/min Stroke Cough Cutaneous horn Chief Complaint 2 MO FU RASH ON BODY FLU SHOT GENERAL CHECK UP EORDERS MOLE REMOVER EORDER 1 M FU 4 MO FU NO E ORDERS YET Reason for Visit History of Clostridi oides difficile colitis Allergic urticaria Cutaneous horn History of Clostridioides difficile colitis CKD (chronic kidney disease) stage 4, GFR 15-29 ml/min Stroke Cough Cutaneous horn Squamous cell carcinoma Squamous cell carcinoma C. difficile colitis Abdominal pain Chief Complaint MOLE REMOVER EORDER 1 M FU 4 MO FU NO E ORDERS YET Reason for Visit Cough Cutaneous horn Squamous cell carcinoma Squamous cell carcinoma C. difficile colitis Abdominal pain Chief Complaint 1 M FU 4 MO FU NO E ORDERS YET LAB WORK CONCERNS CONGENITAL MULTIPLE RENAL CYSTS OSTEOPENIA Reason for Visit Squamous cell carcin bladimir C. difficile colitis Abdominal pain Cough CKD (chronic kidney disease) stage 4, GFR 15-29 ml/min Heart disease High blood pressure High cholesterol Parathyroid disorder Chief Complaint 1 M FU 4 MO FU NO E ORDERS YET LAB WORK CONCERNS CONGENITAL MULTIPLE RENAL CYSTS OSTEOPENIA GENERALIZED EDEMA Reason for Visit Squamous cell carcin bladimir C. difficile colitis Abdominal pain Cough CKD (chronic kidney disease) stage 4, GFR 15-29 ml/min Heart disease High blood pressure High cholesterol Parathyroid disorder Chief Complaint LAB WORK CONCERNS CONGENITAL MULTIPLE RENAL CYSTS OSTEOPENIA GENERALIZED EDEMA 4 M FU leg pain EORDERS Reason for Visit Cough CKD (chronic kidney disease) stage 4, GFR 15-29 ml/min Heart disease High blood pressure High cholesterol Parathyroid disorder Abdominal pain C. difficile colitis Knee strain Right hip pain High blood pressure Kidney failure Chief Complaint leg pain EORDERS 1 M FU cough, congested CONCERN FOR REACTION TO ANTIBIOTIC Reason for Visit Knee strain Right hip pain High blood pressure Kidney failure Knee strain Right hip pain CKD (chronic kidney disease) stage 4, GFR 15-29 ml/min Acute sinusitis, unspecified Cervical strain Thoracic myofascial strain Chief Complaint 1 M FU cough, congested CONCERN FOR REACTION TO ANTIBIOTIC BILAT HIPS Room 2 FLU SHOT CONCERN FOR SINUS INFECTION Low back pain, unspecified LUMBAR SPINE Reason for Visit Knee strain Right hip pain CKD (chronic kidney disease) stage 4, GFR 15-29 ml/min Acute sinusitis, unspecified Cervical strain Thoracic myofascial strain Low back pain Right hip pain Acute cervical myofascial strain Acute maxillary sinusitis, unspecified Facet arthritis of lumbar region Spinal stenosis of lumbar region without neurogenic claudication Chief Complaint LUMBAR SPINE 6 MO FU E ORDER Reason for Visit Facet arthritis of l umbar region S/P lumbar fusion Spinal stenosis of lumbar region without neurogenic claudication Family history of colon cancer Abdominal pain C. difficile colitis Chief Complaint Admit Date E-ORDER October 14, 2024 2 :28pm Chief Complaint Admit Date Establish, High BP February 23, 2025 2:22p m fu March 01, 2025 11:22 am Reason for Visit Admit Date Hyperlipidemia February 23, 2025 2:22p m CKD (chronic kidney disease) stage 4, GF R 15-29 ml/min February 23, 2025 2:22pm High blood pressure February 23, 2025 2:22p m CKD (chronic kidney disease) stage 4, GF R 15-29 ml/min March 01, 2025 11:22am High blood pressure March 01, 2025 11:22 am Family History No Family History Records Found Relationship Condition Age at Onset Recorded Date/T han father Angina pectoris Unknown Cerebrovascular accident (CVA) Unknown Cardiac disease Unknown brother Angina pectoris Unknown Kidney disorder Unknown sister Angina pectoris Unknown mother Venous thrombosis Unknown Disorder of intestine Unknown Malignant neoplasm of colon Unknown Malignant neoplasm of uterus Unknown Advance Directives No Advanced Directives Records Found Advance Directive Response Recorded Date/ Time Living Will Yes April 10, 2021 1 :37pm Power of Front Office Agent Yes April 10, 2021 1:37pm Advance Directive Response Recorded Date/ Time Living Will Yes March 26, 2022 3:44pm Power of Front Office Agent No March 26 3:44pm Advance Directive Response Recorded Date/ Time Living Will Yes March 26, 2022 2:44pm Power of Front Office Agent No March 26 2:44pm Advance Directive Response Recorded Date/ Time Living Will Yes July 22 1:33pm Power of Front Office Agent No July 22, 2023 1:33pm Summary Purpose Additional Source Comments Goals (unrecognized section and content) Goals may be documented in a n alternate sectionGoals may be documented in an alternate sectionGoals may be documented in an alternate sectionGoals may be documented in an alternate sectionGoals may be documented in an alternate sectionGoals may be documented in an alternate sectionGoals may be documented in an alternate sectionGoals may be documented in an alternate sectionGoals may be documented in an alternate sectionGoals may be documented in an alternate sectionGoals may be documented in an alternate sectionGoals may be documented in an alternate sectionGoals may be documented in an alternate sectionGoals may be documented in an alternate sectionGoals may be documented in an alternate sectionGoals may be documented in an alternate sectionGoals may be documented in an alternate sectionGoals may be documented in an alternate sectionGoals may be documented in an alternate sectionGoals may be documented in an alternate sectionGoals may be documented in an alternate section Care Teams (unrecognized sec tion and content) Team Status: Active Member Role Status Dates Dr. Luís Rodriguez , DO Family Provider Active Dr. Luís Rodriguez , DO Primary Care Provider Active Team Status: Inactive Member Role Status Dates Dr. Luís Rodriguez , DO Primary Care Provider, Referr ing Provider Active Dr. Robb Leyva , DO Attending Provider Active Team Status: Inactive Member Role Status Dates Dr. Luís Rodriguez , DO Primary Care Pr ovider, Attending Provider, Referring Provider Active Team Status: Inactive Member Role Status Dates Dr. Luís Rodriguez , DO Primary Care Provider, Referr ing Provider Active Lukas SUN, PA Attending Provider Active Team Status: Inactive Member Role Status Dates Dr. Luís Rodriguez , DO Primary Care Provider, Referr ing Provider Active CAITLIN SUN, PA Attending Provider Active Team Status: Inactive Member Role Status Dates Dr. Luís Rodriguez , DO Primary Care Provider, Attend ing Provider Active Team Status: Inactive Member Role Status Dates Dr. Luís Rodriguez , DO Primary Care Provider Active Dr. Robb Leyva , DO Attending Provider, Referring Provider Active Team Status: Inactive Member Role Status Dates Dr. Luís Rodriguez , DO Primary Care Provider Active Dr. Michel Woodall MD Attending Provider, Referring Pr ovider Active Team Status: Active Member Role Status Dates Dr. Luís Rodriguez , DO Primary Care Provider Active Dr. Michel Woodall MD Attending Provider, Referring Pr ovider Active Team Status: Active Member Role Status Dates Dr. Luís Rodriguez , DO Primary Care Pr ovider, Attending Provider, Referring Provider Active Team Status: Active Member Role Status Dates Dr. Luís Rodriguez , DO Primary Care Provider Active Dr. Arnie Ruth MD Attending Provider Active Team Status: Inactive Member Role Status Dates Dr. Luís Rodriguez , DO Primary Care Provider, Referr ing Provider Active Erasmo SUN, PA Attending Provider Active Team Status: Inactive Member Role Status Dates Dr. Luís Rodriguez , DO Primary Care Provider, Referr ing Provider Active Jewel SUN, PA Attending Provider Active Team Status: Inactive Member Role Status Dates Dr. Luís Rodriguez , DO Primary Care Provider Active Dr. Mu Peraza MD Attending Provider Active Team Status: Inactive Member Role Status Dates Dr. Luís Rodriguez , DO Primary Care Provider, Referr ing Provider Active Dr. Carlos A Iniguez , DO Attending Provider Active Team Status: Inactive Member Role Status Dates Dr. Luís Rodriguez , DO Primary Care Provider Active Lukas SUN PA Attending Provider, Referring Prov ider Active Team Status: Active Member Role Status Dates Dr. Luís Rodriguez , DO Primary Care Provider Active Start: October 14, 2024 Dr. Robb Leyva DO Attending Provider Active Start: October 14, 2024 Dr. Robb Leyva DO Referring Provider Active Start: October 14, 2024 Team Status: Inactive Member Role Status Dates Dr. Luís Rodriguez DO Primary Care Provider Active Start: November 14, 2024 End: November 14, 2024 Dr. Michel Woodall MD Attending Provider Active Start: November 14, 2024 End: November 14, 2024 Dr. Michel Woodall MD Referring Provider Active Start: November 14, 2024 End: November 14, 2024 Team Status: Inactive Member Role Status Dates Dr. Luís Rodriguez DO Primary Care Provider Active Start: January 03, 2025 End: January 03, 2025 Dr. Michel Woodall MD Attending Provider Active Start: January 03, 2025 End: January 03, 2025 Dr. Michel Woodall MD Referring Provider Active Start: January 03, 2025 End: January 03, 2025 Team Status: Inactive Member Role Status Dates Dr. Luís Rodriguez DO Primary Care Provider Active Start: October 14, 2024 End: October 14, 2024 Dr. Robb Leyva DO Attending Provider Active Start: October 14, 2024 End: October 14, 2024 Dr. Robb Leyva DO Referring Provider Active Start: October 14, 2024 End: October 14, 2024 Team Status: Inactive Member Role Status Dates Dr. Luís Rodriguez DO Primary Care Provider Active Start: February 23, 2025 End: February 23, 2025 Dr. Luís Rodriguez DO Referring Provider Active Start: February 23, 2025 End: February 23, 2025 Dr. Lars Vizcaino MD Attending Provider Active Start: February 23, 2025 End: February 23, 2025 Team Status: Inactive Member Role Status Dates Dr. Luís Rodriguez DO Primary Care Provider Active Start: March 01, 2025 End: March 01, 2025 Dr. Luís Rodriguez DO Attending Provider Active Start: March 01, 2025 End: March 01, 2025 Dr. Luís Rodriguez DO Referring Provider Active Start: March 01, 2025 End: March 01, 2025 INFORMATION SOURCE (unrecogn ized section and content) DATE CREATED AUTHOR 03/01/2025 [facility] FOR RECORDS PERTAINING TO PATIENTS WHO ARE OR HAVE BEEN ENROLLED IN A CHEMICAL DEPENDENCY/SUBSTANCEABUSE PROGRAM, SOME INFORMATION MAY BE OMITTED. This clinical summary was aggregated from multiple sources. Caution should be exercised in using it in the provision of clinical care. This summary normalizes information from multiple sources, and as a consequence, information in this document may materially change the coding, format and clinical context of patient data. In addition, data may be omitted in some cases. CLINICAL DECISIONS SHOULD BE BASED ON THE PRIMARY CLINICAL RECORDS. [facility] [employer], [facility]. provides no warranty or guarantee of the accuracy or completeness of information in this document.
[2025-07-24 12:01] LABS: Hematocrit 31.8 % (37-47); Hemoglobin 10.1 g/dL (12.0-15.0); Immature Granulocytes Count 0.010 X10^3/uL (0.0-0.0); Mean Corp Hgb Conc 31.8 g/dL (32-36); Mean Corpuscular Volume 94.6 fL (81-99); Mean Platelet Vol. 11.4 fl (6.2-12.0); NRBC Flagged by Analyzer 0 % (0-5); Platelet Count 211 K/mm3 (150-450); RBC Distribution Width CV 12.5 % (11.6-14.6); RBC Distribution Width SD 42.9 fl (35.1-43.9); Red Blood Count 3.36 M/mm3 (4.2-5.4); White Blood Count 6.2 K/mm3 (4.4-11.0)
[2025-07-24 12:41] LABS: PTHIN 140 pg/mL (11-61)
[2025-07-24 12:45] LABS: Albumin, Serum 4.5 g/dL (3.4-4.8); Anion Gap 11 (5-15); BUN 43 mg/dL (4-19); BUN/Creat Ratio 15.9 RATIO (10-20); Calcium,Total 10.2 mg/dL (7.6-11.0); Carbon Dioxide 23.1 mmol/L (21.0-32.0); Chloride 103 mmol/L (98-108); Ferritin 97 ng/mL (22-378); Glucose 102 mg/dL (70-99); Iron 64 ug/dL (50-170); Iron Binding Capacity,Total 296 ug/dL (250-450); Iron Binding Capacity,Unsat 232 ug/dL (228-428); Magnesium 2.5 mg/dL (1.5-2.2); Potassium 4.5 mmol/L (3.3-5.1)
== END | disposition home or self-care (01) ==
LOC: LAB 11:02
PROVIDERS: PCP Family Medicine; Referring Provider Internal Medicine Nephrology; Visit Provider Internal Medicine Nephrology
DX: N18.4 Chronic kidney disease, stage 4 (severe) (principal); D63.1 Anemia in chronic kidney disease
CPT/HCPCS: 36415; 80069; 82728; 83540; 83550; 83735; 83970; 85025